=== PATIENT | male | born 1945 | race Caucasian/White ===

== ENCOUNTER → 2016-11-29 | Outpatient (REF) | payer MEDICARE, MEDICAID, OTHER ==
[~2016-11-29] MED LIST: ACET500C PO; ACTI300C PO; ADVI200C5 PO; ALLO100T PO; ALLO10TA PO; AMAR1TAB5 PO; AMBI10TA PO; ASPI325T PO; ATOR1TAB19 PO; ATOR40TA PO; B/P MED PO; BAYE325T12 PO; BENA25CA2 PO; BENA25TA4 PO; BENT10CA PO; CELE20TA PO; CELE40TA PO; CHEL50TA PO; COLA100C PO; COLA50CA3 PO; COLC1TAB5 PO; DEMA20TA6 PO; DESIOIN3 TOP; DIAZ5TAB PO; DICY1CAP8 PO; DOC-8.6T PO; DOCU10CA PO; DULC5TAB PO; FERR325T3 PO; FIBE625T4 PO; FLEEENE4 PR; FLOM5CAP PO; FURO1TAB15 PO; GABA600T PO; GLIM1TAB PO; GLIM2TAB PO; GLIM4TAB PO; GLUC10TA3 PO; GLUC1INJ2 IM; GLUC4CHW PO; GLUCOSE PO; HUMU70IN SC; HYDR-3713 PO; IMOD2CHW PO; INSUDET SC; ISOS1TAB12 PO; KETO2CR TOP; LASI40TA PO; LEVE1INJ5 SC; LIPI10TA PO; LIPI20TA PO; LISI-542 PO; LORT5TAB PO; M-VI27TA PO; MAGN400C2 PO; MAGN400T2 PO; MARI2.5C PO; MECL12.575 PO; MELA1TAB PO; META0.52 PO; METF500T PO; METO-207 PO; METO5TAB2 PO; MILKSUS PO; MULTCAP PO; MULTIVITAMIN PO; NEUR300C PO; NITR4TASL SL; NUPE1OIN2 TOP; NYAM10003 EX; NYST100024 TOP; NYST50SS SS; OMEP20TA PO; OXYC1TAB23 PO; PANT40TA2 PO; PERC5TAB6 PO; PERCOCET PO; PRED10TA PO; PRED20TA PO; PRED20TAB PO; PROA1AER IN; PROS5TAB PO; PROT1TAB2 PO; QUES4POW PO; REGL5TAB2 PO; REME15TA PO; SENO8.6T9 PO; SIME80TA PO; SIMV40TA2 PO; SITA50TAB PO; TAMS0.4C2 PO; TOPR50TA PO; TRAM50TA2 PO; TRAZ100T4 PO; TYLE1TAB5 PO; TYLE325T5 PO; ULTR50TA PO; VITA100066 PO; VITA200028 PO; VITAFUSION PO; VITMTA PO; ZEST1TAB5 PO; ZINC220T PO; ZOFR20TA PO; ZOFR20TA SL; ZYLO100T PO; Zinc PO; [UNRECOGNIZED DRUG - CODE] PO; antivert PO; mylicon PO
[2016-11-29 20:44] LABS: FOLATE 10.5 NG/ML
== END ==
LOC: M LABNEURO 16:58
PROVIDERS: ATTEND Psychiatry & Neurology Neurology
DX: Z13.29 Encounter for screening for other suspected endocrine disorder (principal); Z79.899 Other long term (current) drug therapy

== ENCOUNTER → 2016-12-06 | Outpatient (CLI) | payer MEDICARE, MEDICAID, OTHER ==
--- NOTE | 2016-12-06 16:49 | REP ---
CT HEAD WITHOUT CONTRAST: HISTORY: Altered mental status. COMPARISON: 07/17/2014 Areas of decreased attenuation are present in the basal ganglia and right thalamus. These represent old lacunar infarctions. Areas of decreased attenuation are present in the periventricular white matter. This represent small vessel ischemic disease. There is no intraparenchymal hemorrhage, mass or midline shift. The ventricular system and cortical sulci are dilated consistent with minimal volume loss. There is no extracerebral collection. The visualized sinuses are clear. IMPRESSION: 1. Old bilateral basal ganglia and right thalamic lacunar infarctions. 2. Small vessel ischemic disease. 3. Minimal volume loss. Signed by Mike Rivera MD 12/06/2016 04:52 P
== END ==
LOC: M RAD 15:51
PROVIDERS: ATTEND Psychiatry & Neurology Neurology
DX: R41.1 Anterograde amnesia (principal); R41.82 Altered mental status, unspecified

== ENCOUNTER 2017-01-18 02:55 | Observation (INO) | payer MEDICARE, MEDICAID, OTHER ==
[~2017-01-18] VITALS: Ht 172.7 cm; Wt 135.0 kg
[~2017-01-18 02:55] MED LIST changes: -COLA100C PO; +COLA100C3 PO
[2017-01-18] MEDS ORDERED: KETOROLAC 30 MG/ML VIAL (J1885) IM ONE (03:30)
[2017-01-18] MEDS ORDERED: traMADol 50 MG TAB PO ONE (05:30)
--- NOTE | 2017-01-18 05:30 | REPUSA ---
CLINICAL HISTORY: Pain. TECHNIQUE: Multiple axial CT images were obtained without IV contrast material. MPR coronal and sagit otf sequences are obtained. COMMENTS: There is no evidence of fracture or dislocation. There are no lytic or blastic lesions. No soft tissu e masses or fluid collections are present. Mild degenerative joint disease. IMPRESSION: Degenerative joint disease. No fracture. Thank you for your kind referral of this patient.
[2017-01-18] MEDS ORDERED: PRED5TA PO (06:55)
[2017-01-18] MEDS ORDERED: JANU25TA PO (06:55)
[2017-01-18] MEDS ORDERED: TORS20TA2 PO (06:55)
[2017-01-18] MEDS ORDERED: PRED10TA PO (06:55)
[2017-01-18] MEDS ORDERED: ACET50TAOT PO (06:55)
[2017-01-18 07:04] LABS: BASO % 0.1 % (0.0-1.0); EOS % 0.4 % (0.0-3.0); LARGE UNSTAINED CELL # 0.1 K/mm3 (0.0-0.4); LYMPH # 1.1 K/mm3 (1.5-4.5); LYMPH % 9.4 % (24.0-44.0); MEAN CORPUSCULAR HEMOGLOBIN 27.1 pg (27.0-33.0); MEAN CORPUSCULAR HGB CONC 30.5 g/dl (32.0-36.5); MONO # 0.5 K/mm3 (0.0-0.8); MONO % 5.1 % (0.0-5.0); NEUTROPHILS # 8.6 K/mm3 (1.8-7.7); PLATELET COUNT, AUTOMATED 134 k/mm3 (150-450); RED CELL DISTRIBUTION WIDTH 16.1 % (11.5-14.5); WHITE BLOOD COUNT 10.2 K/mm3 (4.0-10.0)
[2017-01-18 07:14] LABS: CALCIUM LEVEL 8.5 MG/DL (8.8-10.2); CREATININE FOR GFR 2.92 MG/DL (0.70-1.30); GLOMERULAR FILTRATION RATE 22.7 (>42); POTASSIUM SERUM 4.5 MEQ/L (3.5-5.1)
--- NOTE | 2017-01-18 07:45 | REP ---
Clinical: Right hip and lower extremity pain . Technique: Miller scale and color Doppler evaluation using linear high frequency transducer. Findings: Ultrasound examination of the right lower extremity deep venous structures from the common femoral vein to the popliteal vein demonstrates normal compressibility flow and wave patterns in response to respiration and augmentation. There is no evidence for deep venous thrombosis. Impression: No evidence for deep venous thrombosis. Signed by Ricky Caruso MD 01/18/2017 07:36 A
--- NOTE | 2017-01-18 08:18 | REP ---
Clinical: Pain. Technique: AP view of the pelvis with neutral and cross-table lateral views of the right hip. Findings: Age-related osteopenia and advanced osteoarthritic degenerative changes are appreciated bilaterally (right greater than left). No obvious acute fracture or dislocation. Impression: Advanced osteoarthritic degenerative changes. No obvious acute fracture or dislocation. Signed by Ricky Caruso MD 01/18/2017 08:09 A
[2017-01-18] MEDS ORDERED: ACETAMINOPHEN TAB 650MG DOSE (2X325MG) PO PRN (08:30)
[2017-01-18] MEDS ORDERED: NORCO, ANEXSIA 5/325MG TABLET (HYDROcodone/ACETAMINOPHEN) PO PRN (08:30)
[2017-01-18] MEDS ORDERED: traZODone 100 MG TAB PO PRN (08:45)
[2017-01-18 09:11] VITALS: BP 109/53
[2017-01-18] MEDS: PANTOPRAZOLE 40MG TAB (PROTONIX) PO SCH (09:32)
[2017-01-18] MEDS: DOCUSATE SODIUM 100 MG CAP PO SCH ×2 (09:33→21:40)
[2017-01-18] MEDS: ASPIRIN 325 MG TAB PO SCH (09:33)
[2017-01-18] MEDS: predniSONE 20 MG TAB PO SCH (09:33)
[2017-01-18] MEDS: LEVEMIR (INSULIN DETEMIR) 1 UNITS/0.01ML SC SCH ×2 (09:34→22:31)
[2017-01-18] MEDS: SITagliptin 50 MG TAB (JANUVIA) PO SCH (09:34)
[2017-01-18] MEDS: MAGNESIUM OXIDE 400 MG TAB (MAG-OX) PO SCH ×2 (09:35→21:48)
[2017-01-18] MEDS: ALLOPURINOL 100 MG TAB PO SCH (10:06)
[2017-01-18] MEDS: VITAMIN D 1,000 INTERNATIONAL UNITS TABLET PO SCH (10:06)
[2017-01-18] MEDS: glipiZIDE 10 MG TAB PO SCH ×2 (10:07→17:10)
[2017-01-18] MEDS: ENOXAPARIN 30 MG/0.3 ML SYR (J1650) SC SCH (14:49)
[2017-01-18 15:20] VITALS: BP 144/62
[2017-01-18] MEDS: TORSEMIDE 20 MG TAB PO SCH (17:10)
[2017-01-18] MEDS ORDERED: GLUCOSE 4 GM CHEW TABLET PO PRN (17:30)
[2017-01-18] MEDS ORDERED: GLUCAGON FOR INJ 1 MG VIAL (J1610) SC PRN (17:30)
[2017-01-18] MEDS ORDERED: DEXTROSE 50% 50 ML SYRINGE IV PRN (17:30)
[2017-01-18] MEDS: HumaLOG INSULIN (NovoLOG) PER UNIT SC SCH (17:40)
[2017-01-18] MEDS ORDERED: CitaloPRAM (CeleXA) 20 MG TAB PO SCH (21:00)
[2017-01-18] MEDS ORDERED: ATORVASTATIN 20 MG TAB PO SCH (21:00)
[2017-01-18] MEDS ORDERED: HumaLOG INSULIN (NovoLOG) PER UNIT SC SCH (21:00)
[2017-01-18 22:00] VITALS: BP 130/63
[2017-01-18] MEDS ORDERED: HumaLOG INSULIN (NovoLOG) PER UNIT SC ONE (22:30)
[2017-01-19 06:00] VITALS: BP 167/75
[2017-01-19 07:05] LABS: MEAN CORPUSCULAR HEMOGLOBIN 26.9 pg (27.0-33.0); MEAN CORPUSCULAR HGB CONC 30.3 g/dl (32.0-36.5); MEAN CORPUSCULAR VOLUME 88.9 fl (80.0-96.0); RED CELL DISTRIBUTION WIDTH 16.1 % (11.5-14.5); WHITE BLOOD COUNT 9.8 K/mm3 (4.0-10.0)
[2017-01-19 07:20] LABS: ALBUMIN 2.5 GM/DL (3.2-5.2); ALBUMIN/GLOBULIN RATIO 0.61 (1.00-1.93); BILIRUBIN,TOTAL 0.4 MG/DL (0.2-1.0); CALCIUM LEVEL 8.6 MG/DL (8.8-10.2); CREATININE FOR GFR 2.78 MG/DL (0.70-1.30); POTASSIUM SERUM 4.7 MEQ/L (3.5-5.1); TOTAL PROTEIN 6.6 GM/DL (6.4-8.2)
[2017-01-19] MEDS: TORSEMIDE 20 MG TAB PO SCH (08:50)
[2017-01-19] MEDS: predniSONE 20 MG TAB PO SCH (08:50)
[2017-01-19] MEDS: MAGNESIUM OXIDE 400 MG TAB (MAG-OX) PO SCH (08:51)
[2017-01-19] MEDS: PANTOPRAZOLE 40MG TAB (PROTONIX) PO SCH (08:51)
[2017-01-19] MEDS: VITAMIN D 1,000 INTERNATIONAL UNITS TABLET PO SCH (08:51)
[2017-01-19] MEDS: ENOXAPARIN 30 MG/0.3 ML SYR (J1650) SC SCH (08:52)
[2017-01-19] MEDS: ALLOPURINOL 100 MG TAB PO SCH (08:52)
[2017-01-19] MEDS: glipiZIDE 10 MG TAB PO SCH (08:52)
[2017-01-19] MEDS: SITagliptin 50 MG TAB (JANUVIA) PO SCH (08:52)
[2017-01-19] MEDS: ASPIRIN 325 MG TAB PO SCH (08:52)
[2017-01-19] MEDS: HumaLOG INSULIN (NovoLOG) PER UNIT SC SCH ×2 (08:53→12:44)
[2017-01-19] MEDS: DOCUSATE SODIUM 100 MG CAP PO SCH (08:53)
[2017-01-19] MEDS: LEVEMIR (INSULIN DETEMIR) 1 UNITS/0.01ML SC SCH (08:53)
[2017-01-19] MEDS ORDERED: PRED10TA PO (11:31)
--- NOTE | 2017-01-19 11:35 | IPNPDOC ---
Subjective Date Seen The patient was seen on 01/19/17. Subjective Chief Complaint/HPI The patient is a 71-year-old male admitted with a reason for visit of Acute-On- Chronic Renal Failure. Events since last encounter Hip pain significantly improved. He walked in the hallway without difficulty. He feels ready to go home Constitutional: Denies: Chills, Fever Pulmonary: Denies: Cough, Dyspnea Cardiovascular: Denies: Chest Pain, Orthopnea, Palpitations Gastrointestinal: Denies: Abdominal Pain, Constipation, Diarrhea, Nausea, Vomiting Genitourinary: Denies: Dysuria Objective Physical Examination General Exam: Positive: Alert, No Acute Distress Chest Exam: Positive: Clear to auscultation, Normal air movement Heart Exam: Positive: Rate Normal, Regular Rhythm Abdomen Exam: Positive: Normal bowel sounds, Soft, Negative: Tenderness Extremity Exam: Negative: Edema Assessment /Plan Problems (1) Arthralgia of hip, right Status: Chronic Response to Treatment: Improving (2) Inability to ambulate due to right hip Status: Acute Response to Treatment: Improving Problem Text: Right hip pain was likely;y flare up of arthritis vs bursitis He has had significant improvement in his pain with increase ion his prednisone to 40 mg daily and use of Hydrocodone x 1 dose last night. I will d/c him home on Prednisone 20 mg daily until f/u with PCP, then could go back on his 10 mg daily dose He has Hydrocodone to use if needed, but he tries to avoid using this Plan/VTE VTE Prophylaxis Ordered?: Yes VS, I&O, 24H, Fishbone Vital Signs/I&O Vital Signs Date Time Temp Pulse Resp B/P Pulse Ox O2 Delivery O2 Flow Rate FiO2 01/19/17 06:00 97.9 78 20 167/75 96 01/18/17 19:20 Room Air I&O- Last 24 Hours up to 6 AM 01/19/17 06:00 Intake Total 1380 ml Output Total 1050 ml Balance 330 ml Laboratory Data 24H LABS Laboratory Tests 2 01/18/17 17:11: Bedside Glucose (Misc Panel) 409H 01/18/17 21:00: Bedside Glucose Confirm (Misc) 500*H 01/18/17 23:30: Bedside Glucose (Misc Panel) 379H 01/18/17 23:31: Urine Amorphous Sediment , Urine Appearance CLEAR, Urine Color STRAW, Urine pH 6.0, Urine Specific [place] 1.008, Urine Protein NEGATIVE, Urine Glucose (UA) 3+ H, Urine Ketones NEGATIVE, Urine Urobilinogen 0.2, Urine Bilirubin NEGATIVE, Urine Leukocyte Esterase NEGATIVE, Urine Bacteria (Auto) NEGATIVE, Urine Blood NEGATIVE, Urine Calcium Carbonate Cryst(Auto) , Urine Calcium Oxalate Cryst ( Auto) , Urine Calcium Phosphate Cintia (Auto) , Urine Cellular Casts , Urine Cystine Crystals , Urine Granular Casts (Auto) , Urine Hyaline Casts (Auto) 0, Urine Leucine Crystals , Urine Mucus (Auto) , Urine Nitrite NEGATIVE, Urine Oval Fat Bodies (Auto) , Urine RBC (Auto) 2, Urine Renal Epithelial Cells , Urine Sperm (Auto) , Urine Squamous Epithelial Cells 0, Urine Transitional Epithelial Cells , Urine Trichomonas (Auto) , Urine Triple Phosphate Cryst (Auto ) , Urine Tyrosine Crystals , Urine Uric Acid Crystals (Auto) , Urine WBC (Auto ) 0, Urine Waxy Casts (Auto) , Urine Yeast-Like Cells (Auto) 01/19/17 05:38: Bedside Glucose (Misc Panel) 187H 01/19/17 06:21: Blood Urea Nitrogen 52H, Creatinine 2.78H, Sodium Level 142, Potassium Level 4.7 , Chloride Level 99, Carbon Dioxide Level 35H, Calcium Level 8.6L, Aspartate Amino Transf (AST/SGOT) 72H, Alanine Aminotransferase (ALT/SGPT) 42, Alkaline Phosphatase 129H, Total Bilirubin 0.4, Total Protein 6.6, Albumin 2.5L, Albumin/ Globulin Ratio 0.61L, Anion Gap 8, Glomerular Filtration Rate 24.0L CBC/BMP Laboratory Tests 01/19/17 06:21 Calcium Level 8.6 L, Aspartate Amino Transf (AST/SGOT) 72 H, Alanine Aminotransferase (ALT/SGPT) 42, Alkaline Phosphatase 129 H, Total Bilirubin 0.4 , Total Protein 6.6, Albumin 2.5 L, Red Blood Count 3.55 L, Mean Corpuscular Volume 88.9, Mean Corpuscular Hemoglobin 26.9 L, Mean Corpuscular Hemoglobin Concent 30.3 L, Red Cell Distribution Width 16.1 H Microbiology Microbiology 01/18/17 Blood Culture, Received Pending 01/18/17 Urine Culture, Received Pending RD FLORES PA-C Jan 19, 2017 11:35
[2017-01-20] MEDS ORDERED: PREVNAR 13 VACCINE SYRINGE (CPT CODE:90670) IM ONE (09:00)
--- NOTE | 2017-01-28 09:07 | ECWPN ---
PATIENT NAME: MOLLY OVALLE V : 1945 GENDER: MALE VISIT DATE: 01/18/2017 DISCHARGE DATE: 01/18/17 0000 VISIT LOCKED DATE TIME: PHYSICIAN: RD FLORES PHYSICIAN PAGER NO: TEXT TO [phone] RESOURCE: RD FLORES REASON FOR APPOINTMENT 1. ADMISSION H & P HISTORY OF PRESENT ILLNESS GENERAL: HE WAS OUT WITH HIS YESTERDAY. THEY DROVE TO THE MALL. HE GOT AROUND WELL WITH HIS SCOOTER AND SAT IN A CHAIR WAITING FOR HE TO SHOP. HE WAS ABLE TO GET OUT OF THE CAR WHEN HE GOT HOME, BUT DEVELOPED SEVERE PAIN IN HIS RIGHT HIP AFTER A FEW STEP AND COULD NOT BARE WEIGHT WELL DUE TO THE PAIN. THE PAIN IS LOCATED IN THE LATERAL ASPECT OF THE HIP. NO RADIATION. NO NUMBNESS, TINGLING OR WEAKNESS OF RIGHT LEG. HE WENT TO BED AND WAS UNABLE TO GET UP TO USE THE BR DUE TO PAIN SO HIS BROUGHT HIM IN TOT HE ER. HE WAS GIVEN TRAMADOL WITHOUT RELIEF. HAVING SEVERE PAIN WITH MINIMAL MOVEMENT OF THE HIP. NOW DEVELOPING SOME BACK PAIN DUE TO LAYING IN THE STRETCHER. USUALLY SLEEPS IN A RECLINER. CURRENT MEDICATIONS TAKING JANUVIA 25 MG TABLET 1 TABLET ORALLY DAILY TAKING ACETAMINOPHEN 500 MG TABLET 1 TAB(S) ORALLY EVERY 4 HOURS NEED TAKING LIPITOR 40 MG TABLET 1 TABLET ORALLY AT BEDTIME TAKING MYCOSTATIN 835837 UNIT/GM POWDER TO AREAS IN ABDOMINAL FOLDS EXTERNALLY TWICE DAILY NEEDED TAKING SAADIA CONTOUR TEST GLUCOMETER DX : E11.65 DIRECTED - THREE TIMES DAILY TAKING ASPIRIN 325 MG TABLET 1 TABLET ORALLY ONCE A DAY TAKING ALLOPURINOL 100 MG TABLET 2 TABLETS ORALLY ONCE A DAY TAKING SAADIA CONTOUR TEST 1 STRIP DIRECTED FOR INSULIN TREATMENT DX E11.9 THREE TIMES A DAY TAKING NITROSTAT 0.4 MG TABLET SUBLINGUAL PRN CHEST PAIN SUBLINGUAL Q 5 MINUTES FOR A MAXIMUM OF 3 TABS TAKING SHOWER CHAIR WITHOUT WHEELS _ DIRECTED DX: I63.9 DAILY USE TAKING PEN NEEDLES 1/2" 29G X 12MM MISCELLANEOUS DIRECTED SUBCUTANEOUSLY BID TAKING PANTOPRAZOLE SODIUM 40 MG TABLET DELAYED RELEASE 1 TAB ORALLY ONCE A DAY TAKING VITAMIN D 1000 UNIT TABLET 1 TABLET ORALLY ONCE A DAY TAKING KETOCONAZOLE 2 % CREAM TO FEET EXTERNALLY TWICE A DAY TAKING TRIAMCINOLONE ACETONIDE 0.1 % CREAM 1 APPLICATION TO AFFECTED AREA EXTERNALLY TWICE A DAY TAKING TORSEMIDE 20 MG TABLET DIRECTED ORALLY 3 TABS IN AM, 3 TAB IN PM TAKING CELEXA 40 MG TABLET 1 TABLET ORALLY ONCE A DAY TAKING MAGNESIUM OXIDE 400 MG TABLET 1.5 TABLET ORALLY TWICE DAILY TAKING TRAZODONE 100 100MG TABLET 1 CAP(S) ORAL AT BEDTIME TAKING GLUCOTROL 10 MG TABLET 1 TABLET ORALLY TWICE DAILY TAKING PREDNISONE 10 MG TABLET 1 TABS ORALLY ONCE A DAY TAKING LEVEMIR FLEXTOUCH 100 UNIT/ML SOLUTION PEN-INJECTOR DIRECTED SUBCUTANEOUS 80 UNITS IN AM, AND 70 UNITS IN PM TAKING SENSIPAR 30 MG TABLET 1 TABLET AFTER A MEAL WITH FOOD ORALLY ONCE A DAY PAST MEDICAL HISTORY DIABETES MELLITUS HYPERLIPIDEMIA H/O CVA 12/2013 RIGHT SIDED: LEFT SIDE SYMPTOMS NO RESIDUAL MORBID OBESITY PMR GOUT PSORIASIS INGROWING NAIL MULTIPLE SKIN CANCER H/O COLON CANCER WITH OSTOMY (NOW REVERSED) COLONOSCOPY 05/29/14-POORLY DIFFERENTIATED SIGMOID COLON ADENOCARCINOMA, MULTIPLE ADENOMATOUS POLYPS IN ASCENDING COLON AND CECUM CHF-FOLLOWS WITH [facility] ALLERGIES MORPHINE SULFATE: NAUSEA, CONFUSION: ALLERGY SURGICAL HISTORY APPENDECTOMY 1947 TONSILLECTOMY 1949 [place] IN [place] ( SEVERAL SURGERY) [id number] COLONOSCOPY 05/29/2014 FAMILY HISTORY FATHER: 69 YRS, HTN, PR, CHF MOTHER: 90 YRS SIBLINGS: SISTER HAD OVARIAN CANCER PATERNAL GRAND MOTHER: 85 YRS, CVA SOCIAL HISTORY GENERAL: TOBACCO USE ARE YOU A:FORMER SMOKER HOW LONG HAS IT BEEN SINCE YOU LAST SMOKED?1-5 YEARS BMI CARE GOAL FOLLOW-UP ABOVE NORMAL BMI FOLLOW-UPGIVING ENCOURAGEMENT TO EXERCISE, LIFESTYLE EDUCATION REGARDING DIET ALCOHOL SCREENING POINTS: 0, INTERPRETATION: NEGATIVE. RECREATIONAL DRUG USE DENIES. CAFFEINE NONE. HIV / HEP-C SCREENING HIV TEST OFFERED TO PATIENT:NO HEP-C TEST OFFERED TO PATIENT:NO OCCUPATION: RETIRED. DIET: HE TRIES TO EAT A CARBOHYDRATE CONTROLLED DIET, BUT OFTEN CHEATS. EXERCISE: UNABLE. LEARNING BARRIERS / SPECIAL NEEDS CHANGE FROM LAST VISIT?NO BARRIERS TO LEARNING?NO HEARING IMPAIRED?NO VISION IMPAIRED?YES :CORRECTIVE LENSES COGNITIVELY IMPAIRED?NO READINESS TO LEARN?YES LEARNING PREFERENCES?NO LEARNING CAPABILITIES PRESENT?YES EMOTIONAL BARRIERS?NO SPECIAL DEVICES?YES :WALKER MISCELLANEOUS: SHE IDENTIFIES HIS , SARINA DEWITT ([phone]), HER ALTERNATE DECISION-MAKER SHOULD SHE BE UNABLE TO MAKE HER OWN MEDICAL DECISIONS. 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 ENDOCRINOLOGY: NO HEAT OR COLD INTOLLERENCE, POLYDYPSIA, OR POLYURIA . GASTROENTEROLOGY: NO HEARTBURN, N/V, ABD PAIN, MELENA, HEMATOCHEZIA, DIARRHEA OR CONSTIPATION . GENERAL: NO NIGHT SWEATS, FEVER, CHILLS, UNEXPLAINED WEIGHT LOSS OR WEIGHT GAIN. . GI/ NO INCONTINENCE, DYSURIA, FREQUENCY OR URGENCY . HEENT NO HEADACHE, VISION CHANGES, HEARING CHANGES, SORE THROAT OR RHINORRHEA . NEUROLOGY: NO HEADACHE, SIEZURES, NUMBNESS OR TINGLING OR WAEKNESS OF EXREMETIES . PSYCHOLOGY: NO DEPRESSION, ANXIETY . PULMONOLOGY: NO COUGH OR HEMOPTYSIS . VITAL SIGNS WT 304 LBS, HT 69 IN, BMI 44.89 INDEX, BP 132/96 MM HG, HR 70 /MIN, RR 20 /MIN, TEMP 100.6 F, OXYGEN SAT % 96%. EXAMINATION GENERAL EXAMINATION: GENERAL APPEARANCE:NO ACUTE DISTRESS, WELL NOURISHED AND HYDRATED. PSYCHAPPROPRIATE MOOD AND AFFECT . FACE:UNREMARKABLE. ORAL CAVITY:MOIST MUCOUS MEMBRANES. LUNGS:CLEAR TO AUSCULTATION BILATERALLY, NO WHEEZES, RHONCHI, RALES. HEART:NO MURMURS, REGULAR RATE AND RHYTHM. MUSCULOSKELETAL:UNABLE TO MOVE RIGHTHIP DUE TO PAIN. NO TENDERNESS IN LUMBA SPINE OR RIGHT PERISPINAL MUSCLES OR SCIATIC NOTHC. TENDERNESS OVER RIGHT GREATER TROCHANTER. EXTREMITIES:NO CLUBBING, + 2 EDEMA BLE. SKIN:NORMAL, NO RASH. ASSESSMENTS INTRACTABLE PAIN - R52 (PRIMARY) INABILITY TO AMBULATE DUE TO HIP - R26.2 TROCHANTERIC BURSITIS OF RIGHT HIP - M70.61 LOW GRADE FEVER - R50.9 ACUTE RENAL FAILURE, UNSPECIFIED ACUTE RENAL FAILURE TYPE - N17.9 CHRONIC KIDNEY DISEASE, STAGE 4 (SEVERE) - N18.4 TYPE 2 DIABETES MELLITUS WITH DIABETIC CHRONIC KIDNEY DISEASE - E11.22 CHRONIC DIASTOLIC CONGESTIVE HEART FAILURE - I50.32 MORBID OBESITY - E66.01 TREATMENT INTRACTABLE PAIN CLINICAL NOTES: ADMIT FOR OBSERVATION FOR PAIN CONTROL AND PT IN EFFORT TO BE ABLE TO AMBULATE SAFELY. TROCHANTERIC BURSITIS OF RIGHT HIP CLINICAL NOTES: APPLY LIDODERM PATCHES. INCREASE PREDNISONE AND GIVE NORCO PRN BUT TRY TO AVOID EXCESSIVE USE. CONSIDER ORTHO CONSULT FOR INJECTIN. GET PT TO ADDRESS AMBULATION. LOW GRADE FEVER CLINICAL NOTES: CHECK URINALYSIS DUE TO TX WITH JARDIANCE - INCREASED RISK FOR UTI. ACUTE RENAL FAILURE, UNSPECIFIED ACUTE RENAL FAILURE TYPE CLINICAL NOTES: CREATININE UP FROM BASELINE 2.36 IN NEPHROLOGY VISIT RECENTLY - INCREASE IS LIKELY DUE TO INCREASED DOSE OF TORSEMIDE HOWEVER, HE STILL HAS EDEMA, THOUGH THIS HAS IMPROED WITHT HE INCREASED DOSE. TYPE 2 DIABETES MELLITUS WITH DIABETIC CHRONIC KIDNEY DISEASE CONTINUE JANUVIA TABLET, 25 MG, 1 TABLET, ORALLY, DAILY CONTINUE GLUCOTROL TABLET, 10 MG, 1 TABLET, ORALLY, TWICE DAILY CONTINUE LEVEMIR FLEXTOUCH SOLUTION PEN-INJECTOR, 100 UNIT/ML, DIRECTED, SUBCUTANEOUS, 80 UNITS IN AM, AND 70 UNITS IN PM CHRONIC DIASTOLIC CONGESTIVE HEART FAILURE CONTINUE TORSEMIDE TABLET, 20 MG, DIRECTED, ORALLY, 3 TABS IN AM, 3 TAB IN PM CLINICAL NOTES: TORSEMIDE RECENTLY INCREASED BY DR. JAUREGUI FOR INCREASED GARCIA AND, INCREASED LE EDEMA AND WEIGHT GAIN. HE IS LESS SOB AND HIS EDEMA HAS IMPROVED WITH HIGHER DOSE BUT CREATININE HAS RISEN. CONSIDER NEPHROLOGY CONSULT. MORBID OBESITY CLINICAL NOTES: MAKES AMBULATION ISSUES MORE CHALLENGING. DISPOSITION & COMMUNICATION ELECTRONICALLY SIGNED BY PRIMITIVO HUFFMAN ON 01/23/2017 AT 09:56 AM EDT DISCLAIMER : THIS IS A VISIT SUMMARY EXTRACTED FROM THE [employer] CHART. IT IS NOT A COPY OF THE [employer] PROGRESS NOTE. MTDD
== END 2017-01-19 14:50 | disposition home or self-care (01) ==
LOC: EDBD 02:55 → M ED 03:49 → M ED INP 08:26 → M MSPAV 15:06
PROVIDERS: ADMIT Family Medicine; ATTEND Family Medicine
DX: M25.551 Pain in right hip (principal); R26.2 Difficulty in walking, not elsewhere classified; M70.61 Trochanteric bursitis, right hip; M79.604 Pain in right leg; R50.9 Fever, unspecified; N17.9 Acute kidney failure, unspecified; N18.4 Chronic kidney disease, stage 4 (severe); E11.22 Type 2 diabetes mellitus with diabetic chronic kidney disease; I50.32 Chronic diastolic (congestive) heart failure; E66.01 Morbid (severe) obesity due to excess calories; E11.65 Type 2 diabetes mellitus with hyperglycemia; E78.4 Other hyperlipidemia; Z86.73 Personal history of transient ischemic attack (TIA), and cerebral infarction without residual deficits; M35.3 Polymyalgia rheumatica; M10.9 Gout, unspecified; Z79.82 Long term (current) use of aspirin; Z79.899 Other long term (current) drug therapy; L40.8 Other psoriasis; Z85.828 Personal history of other malignant neoplasm of skin; Z85.038 Personal history of other malignant neoplasm of large intestine; Z87.891 Personal history of nicotine dependence; I63.9 Cerebral infarction, unspecified; Z79.4 Long term (current) use of insulin
CPT/HCPCS: 36415; 73502; 73700; 80048; 80053; 81001; 82947; 85025; 85027; 87040; 87086; 90670; 93971; 96372; 97161; 99284; G0009; G0378; G8978; G8979; G8980; J1650; J1885

== ENCOUNTER → 2017-02-15 | Outpatient (CLI) | payer MEDICARE, MEDICAID, OTHER ==
[~2017-02-15] MED LIST changes: +ACET50TAOT PO; +JANU25TA PO; +PRED5TA PO; +TORS20TA2 PO
[2017-02-15 16:57] LABS: CALCIUM LEVEL 6.9 MG/DL (8.8-10.2); CREATININE FOR GFR 2.65 MG/DL (0.70-1.30); GLOMERULAR FILTRATION RATE 25.4 (>42); POTASSIUM SERUM 4.6 MEQ/L (3.5-5.1)
== END ==
LOC: M LAB 16:07
PROVIDERS: ATTEND Internal Medicine Cardiovascular Disease
DX: I50.32 Chronic diastolic (congestive) heart failure (principal)

== ENCOUNTER → 2017-02-21 | Outpatient (REF) | payer MEDICARE, MEDICAID ==
[2017-02-21 13:48] LABS: ALBUMIN 2.9 GM/DL (3.2-5.2); ALBUMIN/GLOBULIN RATIO 0.83 (1.00-1.93); BILIRUBIN,TOTAL 0.6 MG/DL (0.2-1.0); CALCIUM LEVEL 7.4 MG/DL (8.8-10.2); CREATININE FOR GFR 2.79 MG/DL (0.70-1.30); GLOMERULAR FILTRATION RATE 23.9 (>42); POTASSIUM SERUM 4.4 MEQ/L (3.5-5.1); TOTAL PROTEIN 6.4 GM/DL (6.4-8.2)
== END ==
LOC: M SFHCPLAZ 11:19
PROVIDERS: ATTEND Nurse Practitioner Family
DX: E11.22 Type 2 diabetes mellitus with diabetic chronic kidney disease (principal)
CPT/HCPCS: 36415; 80053; 83036; G0463

== ENCOUNTER → 2017-04-15 | Outpatient (REF) | payer MEDICARE, MEDICAID ==
[~2017-04-15] MED LIST changes: -ATOR40TA PO; +ATOR40TA75 PO; +CALC1CAP31 PO; +CINA30TA PO; +CITA20TA4 PO; -COLA100C3 PO; +COLA100C5 PO; +COLC1TAB14 PO; -COLC1TAB5 PO; -DOC-8.6T PO; +DOC-8.6T3 PO; +DOCU100C16 PO; -FURO1TAB15 PO; +FURO80TA2 PO; +GABA-279 PO; +HYDR-2808 PO; +LIDO1PAD TOP; -METF500T PO; +METF500T13 PO; -METO-207 PO; +METO1TAB7 PO; -NYST100024 TOP; +NYST1POW9 TOP; +PERC5TAB12 PO; -PERC5TAB6 PO; +PRED10TA2 PO; -PROA1AER IN; +PROAAER10 IN; +TOUJ1.2I SQ; +TRAZ-136 PO; -TRAZ100T4 PO; +TYLE500T78 PO; -ULTR50TA PO; +ULTR50TA8 PO; +VALA1TAB2 PO; +VITA50TA49 PO; +ZYLO300T4 PO
== END ==
LOC: M SFHCPLAZ 10:40
PROVIDERS: ATTEND Family Medicine
DX: L57.0 Actinic keratosis (principal); L98.8 Other specified disorders of the skin and subcutaneous tissue; D22.39 Melanocytic nevi of other parts of face; L85.8 Other specified epidermal thickening; C44.329 Squamous cell carcinoma of skin of other parts of face
CPT/HCPCS: 11100; 11101; 11642; 88305; G0463

== ENCOUNTER 2017-06-24 12:47 | Outpatient (RCR) | payer MEDICARE, MEDICAID ==
[~2017-06-24 12:47] MED LIST changes: -CALC1CAP31 PO; -CINA30TA PO; -CITA20TA4 PO; -DOCU100C16 PO; -GABA-279 PO; -HYDR-2808 PO; -LIDO1PAD TOP; -TOUJ1.2I SQ; -TYLE500T78 PO; -VALA1TAB2 PO; -VITA50TA49 PO; -ZYLO300T4 PO
== END 2017-06-30 ==
LOC: M CR 12:47
PROVIDERS: ATTEND Family Medicine
DX: R06.00 Dyspnea, unspecified (principal); Z88.5 Allergy status to narcotic agent

== ENCOUNTER 2017-07-12 07:36 | Inpatient (IN) | payer MEDICARE, MEDICAID ==
[~2017-07-12] VITALS: Ht 172.7 cm; Wt 142.5 kg
[2017-07-12] MEDS ORDERED: CINA30TA PO (08:07)
[2017-07-12] MEDS ORDERED: TOUJ1.2I SQ (08:07)
[2017-07-12] MEDS ORDERED: PANT40TA2 PO (08:07)
[2017-07-12] MEDS ORDERED: CALC1CAP31 PO (08:07)
[2017-07-12] MEDS ORDERED: PRED20TA PO (08:07)
[2017-07-12] MEDS ORDERED: TORS20TA2 PO (08:07)
[2017-07-12] MEDS ORDERED: FERR325T3 PO (08:07)
[2017-07-12] MEDS ORDERED: VITA50TA49 PO (08:07)
[2017-07-12] MEDS ORDERED: TYLE325T5 PO (08:07)
[2017-07-12] MEDS ORDERED: fentaNYL 100 MCG/2 ML INJECTION (J3010) IV ONE ×3 (08:30→10:15)
[2017-07-12 08:41] LABS: BASO % 0.2 % (0.0-1.0); EOS # 0.1 K/mm3 (0.0-0.50); EOS % 0.8 % (0.0-3.0); LARGE UNSTAINED CELL # 0.2 K/mm3 (0.0-0.4); LYMPH # 2.5 K/mm3 (1.5-4.5); LYMPH % 16.2 % (24.0-44.0); MEAN CORPUSCULAR HGB CONC 30.5 g/dl (32.0-36.5); MONO # 0.7 K/mm3 (0.0-0.8); MONO % 4.7 % (0.0-5.0); NEUTROPHILS # 11.5 K/mm3 (1.8-7.7); NEUTROPHILS % 77.1 % (36.0-66.0); PLATELET COUNT, AUTOMATED 178 k/mm3 (150-450); RED CELL DISTRIBUTION WIDTH 17.3 % (11.5-14.5); WHITE BLOOD COUNT 14.8 K/mm3 (4.0-10.0)
[2017-07-12 08:51] LABS: CALCIUM LEVEL 8.3 MG/DL (8.8-10.2); CREATININE FOR GFR 2.44 MG/DL (0.70-1.30); GLOMERULAR FILTRATION RATE 27.9 (>42)
[2017-07-12] MEDS: ASPIRIN 325 MG TAB PO SCH (09:00)
[2017-07-12] MEDS: CALCITRIOL 0.25 MCG CAP (S0169) PO SCH (09:00)
[2017-07-12] MEDS: ALLOPURINOL 300 MG TAB PO SCH (09:00)
[2017-07-12] MEDS: ENOXAPARIN 30 MG/0.3 ML SYR (J1650) SC SCH (09:00)
[2017-07-12] MEDS ORDERED: PANTOPRAZOLE 40MG TAB (PROTONIX) PO SCH (09:00)
[2017-07-12] MEDS: predniSONE 20 MG TAB PO SCH (09:00)
--- NOTE | 2017-07-12 11:14 | REP ---
MRI LUMBAR SPINE WITHOUT CONTRAST (LIMITED): 07/12/2017 CLINICAL HISTORY: Severe low back pain. Right radicular symptoms, L3 distribution. COMPARISON: MRI 03/08/2016. TECHNIQUE: A sagittal T2 sequence was performed. Technologist notes indicate the patient had been medicated twice but was unable to tolerate this. It was therefore terminated. FINDINGS: Sagittal images show diffuse disc space narrowings sparing only the L4 level. All levels show some loss of disc water signal. Discogenic endplate changes are seen at the L3-4 level progressive from last year's MRI. There is no compression deformity. Conus appears to terminate behind L1 lower aspect. Some discogenic endplate changes are also seen at the L5-S1 level unchanged. There are disc bulges at T12-L1 and L1-2 but small somewhat larger at L3-4 small at L4-5 and a disc protrusion at L5-S1 centrally. All of this appears grossly unchanged. Some facet and ligamentum hypertrophy are present at the L3-4 contributing to spinal stenosis. No other findings can be made with just a sagittal image set. The foramina show encroachment at L5-S1 bilaterally and minimally at L3-4 on the right, slightly more on the left. The other foramina are adequate. IMPRESSION: 1. Limited evaluation with spondylosis/degenerative disc and facet arthritic changes as described. Spinal stenosis suggested L3-4 in the central canal and foraminal encroachment at several levels. Some progression of discogenic endplate changes as described. No acute compression deformity or destructive lesion. Signed by Javier Hinojosa MD 07/12/2017 04:13 P
[2017-07-12] MEDS ORDERED: CITA20TA4 PO (12:26)
[2017-07-12] MEDS: PERCOCET 5MG/325MG TAB PO PRN ×2 (15:29→20:24)
[2017-07-12] MEDS ORDERED: ONDANSETRON 4MG/2ML VIAL (J2405) IV PRN (15:30)
[2017-07-12] MEDS ORDERED: DEXTROSE 50% 50 ML SYRINGE IV PRN (15:30)
[2017-07-12] MEDS ORDERED: PERCOCET 5MG/325MG TAB PO PRN (15:30)
[2017-07-12] MEDS ORDERED: GLUCAGON FOR INJ 1 MG VIAL (J1610) SC PRN (15:30)
[2017-07-12] MEDS ORDERED: GLUCOSE 4 GM CHEW TABLET PO PRN (15:30)
[2017-07-12] MEDS ORDERED: NITROGLYCERIN 0.4 MG SUBL TABLET SL PRN (15:30)
[2017-07-12 16:50] VITALS: BP 150/68
--- NOTE | 2017-07-12 16:56 | REP ---
Clinical: Leukocytosis. Technique: PA and lateral. Comparison: 05/25/2016. Findings: Cardiomegaly is appreciated with bibasilar opacities suggesting atelectasis and effusions as well as indistinct central pulmonary vasculature and mild cephalization. Findings suggest CHF and pulmonary edema. Underlying pneumonia cannot be excluded. No pneumothorax. Skeletal structures intact. Impression: Findings described above suggest CHF/pulmonary edema. Differential diagnosis includes pneumonia. Signed by Ricky Caruso MD 07/12/2017 04:48 P
--- NOTE | 2017-07-12 17:02 | REP ---
Clinical: Pain. Technique: Frontal view of the pelvis with AP and cross-table lateral views of the right hip. Findings: Early advanced diffuse degenerative changes are appreciated throughout the pelvis and hips. No definite acute fracture is appreciated. Impression: Advanced degenerative changes throughout the pelvis and hips. No obvious acute fracture. Signed by Ricky Caruso MD 07/12/2017 11:49 A
--- NOTE | 2017-07-12 17:06 | REP ---
Right femur: Three views: History: Question fracture. Findings: AP and lateral views of the femur are presented. There is moderate to advanced osteoarthritis at the hip. No femur fracture is seen. Vascular calcification is noted. Impression: No femur fracture noted. Signed by Favio Rivas MD 07/12/2017 05:25 P
--- NOTE | 2017-07-12 17:17 | REP ---
Right knee series: Four views: History: Question fracture. Findings: Four views right knee demonstrate diffuse osteopenia and vascular calcification. No fracture or subluxation is seen. Impression: Diffuse osteopenia and vascular calcification. No fracture noted. Signed by Favio Rivas MD 07/12/2017 05:25 P
[2017-07-12] MEDS: HumaLOG INSULIN (NovoLOG) PER UNIT SC SCH ×2 (17:26→21:00)
[2017-07-12] MEDS: glipiZIDE 10 MG TAB PO SCH (17:27)
[2017-07-12] MEDS: TORSEMIDE 20 MG TAB PO SCH ×2 (17:27→20:25)
[2017-07-12] MEDS: ATORVASTATIN 20 MG TAB PO SCH (20:24)
[2017-07-12] MEDS: CitaloPRAM (CeleXA) 20 MG TAB PO SCH (20:25)
[2017-07-12] MEDS: MAGNESIUM OXIDE 400 MG TAB (MAG-OX) PO SCH (20:25)
[2017-07-12] MEDS: PANTOPRAZOLE 40MG TAB (PROTONIX) PO SCH (20:25)
[2017-07-12] MEDS: FERROUS SULFATE 325MG TAB PO SCH (20:26)
[2017-07-12] MEDS: traZODone 100 MG TAB PO SCH (20:26)
[2017-07-12] MEDS: SENOKOT S TAB PO SCH (20:26)
[2017-07-12] MEDS: DICLOFENAC EPOLAMINE 1.3 % PATCH TOP SCH (20:27)
[2017-07-12 22:00] VITALS: BP 134/62
[2017-07-12] MEDS: LEVEMIR (INSULIN DETEMIR) 1 UNITS/0.01ML SC SCH (22:32)
[2017-07-13] MEDS: PERCOCET 5MG/325MG TAB PO PRN ×4 (00:42→20:27)
[2017-07-13 06:00] VITALS: BP 118/58
[2017-07-13 06:36] LABS: BASO # 0.1 K/mm3 (0.0-0.2); BASO % 0.6 % (0.0-1.0); EOS # 0.1 K/mm3 (0.0-0.50); EOS % 0.9 % (0.0-3.0); LARGE UNSTAINED CELL # 0.1 K/mm3 (0.0-0.4); LARGE UNSTAINED CELL % 0.9 % (0.0-4.0); LYMPH # 1.3 K/mm3 (1.5-4.5); MEAN CORPUSCULAR HEMOGLOBIN 27.9 pg (27.0-33.0); MEAN CORPUSCULAR HGB CONC 30.2 g/dl (32.0-36.5); MEAN CORPUSCULAR VOLUME 92.6 fl (80.0-96.0); MONO # 0.6 K/mm3 (0.0-0.8); MONO % 5.2 % (0.0-5.0); NEUTROPHILS % 82.4 % (36.0-66.0); PLATELET COUNT, AUTOMATED 135 k/mm3 (150-450); RED CELL DISTRIBUTION WIDTH 17.3 % (11.5-14.5); WHITE BLOOD COUNT 12.1 K/mm3 (4.0-10.0)
[2017-07-13 06:50] LABS: ALBUMIN 2.5 GM/DL (3.2-5.2); ALBUMIN/GLOBULIN RATIO 0.63 (1.00-1.93); BILIRUBIN,TOTAL 0.7 MG/DL (0.2-1.0); CALCIUM LEVEL 7.7 MG/DL (8.8-10.2); CREATININE FOR GFR 2.52 MG/DL (0.70-1.30); GLOMERULAR FILTRATION RATE 26.8 (>42); MAGNESIUM LEVEL 2.3 MG/DL (1.8-2.4); POTASSIUM SERUM 3.6 MEQ/L (3.5-5.1); TOTAL PROTEIN 6.5 GM/DL (6.4-8.2)
[2017-07-13 07:04] LABS: ERYTHROCYTE SEDIMENTATION RATE 102 mm/hr (0-20)
[2017-07-13] MEDS: HumaLOG INSULIN (NovoLOG) PER UNIT SC SCH ×4 (07:30→20:31)
--- NOTE | 2017-07-13 08:58 | HPE ---
DATE OF ADMISSION: 07/12/2017 CHIEF COMPLAINT: Increased dyspnea, peripheral edema, one day history of right lateral leg pain. HISTORY OF PRESENT ILLNESS: This is a 72-year-old male patient of Dr. Josh Gómez who presents to [facility] emergency room with worsening right lateral leg pain since roughly 4:00 pm on 07/11/2017. He states this began after he tried to rise up from being seated for roughly 3 hours for an [employer] boat tour. He denies any precedent or subsequent trauma. The pain has worsened since then to the point that he cannot rise from a seated position. The pain is worse with rising and with weightbearing. He denies any weakness or numbness of the leg. No urinary symptoms. The patient denies any fevers, chills, cough, congestion, abdominal pain, change in bowel movements nor lower urinary tract symptoms. The patient does notice over the last two weeks to have increased bilateral lower extremity peripheral edema with mildly increased dyspnea on exertion. He denies any chest pain, palpitations, orthopnea, paroxysmal nocturnal dyspnea (PND), nor presyncope/syncope symptoms. PAST MEDICAL HISTORY: Congestive heart failure (CHF), chronic, secondary to diastolic dysfunction. Hypertension. Hypertensive heart disease. Coronary artery disease (CAD), status post 09/2015 drug-eluting stent (RAISSA) to the mid circumflex. Right bundle branch block. Left anterior fascicular block. Morbid obesity. Cerebrovascular disease, status post multiple prior lacunar infarcts. Hyperlipidemia. Diabetes mellitus, type 2, insulin requiring, poorly controlled. Recurrent nephrolithiasis. Obstructive sleep apnea (ADWOA). On chronic continuous positive airway pressure (CPAP). Severe lumbar spinal degenerative disc disease with spinal stenosis. Bilateral hip osteoarthritis. Polymyalgia rheumatica, on chronic prednisone therapy. Vitamin D deficiency. Depression. Chronic kidney disease, stage IV with baseline creatinine of 2.5 with secondary hyperparathyroidism. Chronic normocytic anemia with baseline hemoglobin of 10 to 11. Iron deficiency anemia. MEDICATIONS: Per [employer] (eCW), confirmed with patient: - allopurinol 300 by mouth every day - glipizide 10 by mouth by mouth twice a day - atorvastatin 40 by mouth every day - Januvia 25 by mouth every day - citalopram 20 mg every day - prednisone 20 mg by mouth every day - Pantoprazole 40 mg by mouth every day - trazodone 100 at bedtime - torsemide 60 mg by mouth twice a day - aspirin 325 every day - nitroglycerin sublingual 0.4 every 5 minutes as needed - magnesium oxide 600 by mouth twice a day - hydrocodone 5/300 every 6 hours as needed pain - Toujeo 80 units subcutaneous twice a day - vitamin D 1000 by mouth every day - Sensipar 30 mg by mouth every other day - ferrous sulfate 325 twice a day - Colace 100 by mouth twice a day - vitamin B6 50 by mouth every day - calcitriol 0.25 every day REVIEW OF SYSTEMS: Constitutional: No weight loss. No diplopia, no scatoma. ENT: No epistaxis or hoarseness. Cardiovascular: No chest pain, no palpitations. Pulmonary: Dyspnea as above. Gastrointestinal (GI): No odynophagia or melena. No hematochezia. Genitourinary: (): No dysuria or hematuria. Dermatology: No rash. Endocrine: No polydipsia or polyuria. Rheumatologic: Chronic left anterior chest pain. Neurological: No paresthesia or weakness. PHYSICAL EXAMINATION: Well-developed, well-nourished morbidly obese male in mild distress from right lateral leg pain. Alert and oriented times three. HEENT: Head is normocephalic, atraumatic. Ears: TMs normal bilateral. Eyes: Clear conjunctiva. Nose: Without discharge. Throat: Clear oropharynx. NECK: Without cervical adenopathy or thyromegaly. CARDIOVASCULAR: Regular rate and rhythm with 2/6 systolic ejection murmur, loudest at upper left sternal border. RESPIRATORY: Coarse rales bilateral, a third the way up lung field. Decreased breath sounds bilateral bases. No wheeze. ABDOMEN: Nontender, nondistended. Positive bowel sounds. No hepatosplenomegaly. EXTREMITIES: With 3 mm pretibial pitting edema. Pont tenderness of the right lateral thigh, specifically over the trochanteric bursa, but also tracking down the IT band. NEUROLOGIC: Nonfocal. 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 INVESTIGATIONS: WBC 14.8, hemoglobin and hematocrit 11.6 and 38.0. Platelets of 178. Neutrophils 77%. Sodium 146, potassium 4.0, chloride 103, bicarbonate of 33, BUN 67, creatinine at 2.4. Calcium 8.3, CRP of 2.8. MRI of the lumbar spine, limited evaluation showing diffuse spondylosis with facet arthritis. No acute compression deformity nor destructive lesion. There is bilateral L5-S1 foraminal encroachment. Hip and pelvis x-ray with moderate bilateral hip osteoarthritis without fracture. No malalignment. ASSESSMENT: This is a 72-year-old white male with acute on chronic diastolic heart failure. Also with leukocytosis with left shift with unknown etiology and with sudden right lateral leg pain causing inability to ambulate. PLAN: Cardiovascular: Admit the patient to [facility], med-surg bed. Will increase his torsemide from 60 twice a day to three times a day with 1500 mL fluid restriction on low salt diet. Will follow serial electrolytes and enzymes. Check baseline EKG. ID: The patient has elevated WBC with left shift. This could be related to chronic prednisone therapy. Will check blood cultures times three. UA: Urine culture. He has no focal signs of infection, therefore, did not start antibiotics. Renal: The patient is at his baseline creatinine. Will follow closely given his decompensation. Ortho: The patient has inability to ambulate. I think this is possibly related to acute trochanteric bursitis. IT band syndrome. While in the emergency room he got fentanyl 25 mcg IV times two and then became lethargic with desaturations to the 80s. Therefore, I did advise the patient will have to use a milder narcotic. He states his hydrocodone at home is not helping at all, therefore, will switch to oxycodone 5 to 10 mg every 4 hour as needed pain and Flector patch, two patches to right lateral leg. Will check x-ray of the right femur and knee. Start physical therapy (PT) for his weakness and deconditioning, and IT band syndrome. The patient may also need subacute rehabilitation. We could consider peritendinous injection. Endocrine: Will continue his home dose of basal insulin, although will switch Toujeo to Levemir and continue his glipizide, holding Januvia given elevated white count and will place on sliding-scale NovoLog insulin. Rheumatology: Will continue his home dose prednisone for his polymyalgia rheumatica (PMR).
[2017-07-13] MEDS: LEVEMIR (INSULIN DETEMIR) 1 UNITS/0.01ML SC SCH ×2 (09:00→10:48)
[2017-07-13] MEDS: MAGNESIUM OXIDE 400 MG TAB (MAG-OX) PO SCH ×2 (09:15→20:25)
[2017-07-13] MEDS: CINACALCET 30 MG TAB (SENSIPAR) PO SCH (09:16)
[2017-07-13] MEDS: glipiZIDE 10 MG TAB PO SCH ×2 (09:16→17:21)
[2017-07-13] MEDS: predniSONE 20 MG TAB PO SCH (09:16)
[2017-07-13] MEDS: CALCITRIOL 0.25 MCG CAP (S0169) PO SCH (09:16)
[2017-07-13] MEDS: ASPIRIN 325 MG TAB PO SCH (09:17)
[2017-07-13] MEDS: FERROUS SULFATE 325MG TAB PO SCH ×2 (09:17→20:26)
[2017-07-13] MEDS: ALLOPURINOL 300 MG TAB PO SCH (09:17)
[2017-07-13] MEDS: TORSEMIDE 20 MG TAB PO SCH ×3 (09:17→20:25)
[2017-07-13] MEDS: SENOKOT S TAB PO SCH ×2 (09:17→20:26)
--- NOTE | 2017-07-13 10:10 | IPNPDOC ---
Subjective Date Seen The patient was seen on 07/13/17. Subjective Chief Complaint/HPI The patient is a 72-year-old male admitted with a reason for visit of Acute On Chronic Diastolic Chf;Leukocystosis. Events since last encounter States continues with RIGHT hip pain. Denies other c/o. PT ordered. Constitutional: Denies: Chills, Fever, Night Sweats Skin: Denies: Rash, Lesions, Breakdown Pulmonary: Denies: Dyspnea, Cough Cardiovascular: Denies: Chest Pain, Palpitations, Orthopnea, Paroxysmal Noc. Dyspnea, Edema, Lt Headedness, Other Symptoms Genitourinary: Denies: Dysuria, Frequency, Incontinence, Retention Musculoskeletal: Reports: Other Symptoms (RIGHT hip pain) Objective Physical Examination General Exam: Positive: Alert, No Acute Distress Eye Exam: Positive: PERRLA, Conjunctiva & lids normal, EOMI, Negative: Sclera icteric ENT Exam: Positive: Atraumatic, Mucous membr. moist/pink, Pharynx Normal Neck Exam: Positive: Supple, Negative: JVD, thyromegaly Chest Exam: Positive: Clear to auscultation, Normal air movement Heart Exam: Positive: Rate Normal, Regular Rhythm, Normal S1, Normal S2, Negative: Murmurs, Rubs Abdomen Exam: Positive: Normal bowel sounds, Soft, Negative: Tenderness, Hepatospenomegaly Extremity Exam: Positive: Other (RIGHT hip tenderness on palpation) Psych Exam: Positive: Mental status NL, Mood NL, Oriented x 3 Assessment /Plan Problems (1) Acute on chronic diastolic CHF (congestive heart failure) Status: Acute Problem Text: Net -1575 on fluid volume yesterday. - continue torsemide TID (2) Intractable pain Status: Acute Problem Text: PT involvement today. Flector patch and oxycodone prn pain. May benefit from prednisone. Will monitor how pain evolves. (3) CKD (chronic kidney disease) Status: Chronic Problem Text: Cr better than baseline upon admission (4) Polymyalgia rheumatica syndrome Status: Chronic Problem Text: usually involved wrist with exacerbation. May be contributing factor to hip pain. (5) CAD (coronary artery disease) Status: Chronic Response to Treatment: Stable Problem Specific Plan: Monitor Clinically (6) General weakness Status: Acute Problem Text: PT ordered. (7) Arthralgia of hip, right Status: Chronic Response to Treatment: Stable Problem Specific Plan: Monitor Clinically (8) T2DM (type 2 diabetes mellitus) Status: Chronic Response to Treatment: Uncontrolled Problem Specific Plan: Monitor Clinically (9) Hyperlipidemia Status: Chronic Response to Treatment: Stable Problem Specific Plan: Monitor Clinically (10) Depression Status: Chronic Response to Treatment: Stable Problem Specific Plan: Monitor Clinically (11) Gout Status: Chronic Response to Treatment: Stable Problem Specific Plan: Monitor Clinically Plan/VTE VTE Prophylaxis Ordered?: Yes (Lovenox) Plan Family Medicine Attending Note: Patient seen and examined this afternoon; I discussed with BERTHA Katz and I agree with her note above. Patient' s lungs are relatively clear and he is diuresing well - continue torsemide. His primary complaint today is severe right hip and right posterior thigh pain that worsens with movement. I reviewed extensive imaging studies that were performed yesterday - severe arthritis noted in that hip but no acute fracture or dislocation. He is primarily tender over the posterior aspect of his right thigh and lower buttock and he has no lower back tenderness at all. He currently has a Diclofenac patch on, and has been receiving oxycodone around the clock. PT is about to evaluate him - will await their recommendations. ( KES) VS, I&O, 24H, Fishbone Vital Signs/I&O Vital Signs Date Time Temp Pulse Resp B/P (MAP) Pulse Ox O2 Delivery O2 Flow Rate FiO2 07/13/17 09:15 17 07/13/17 06:00 97.4 57 118/58 (78) 96 Nasal Cannula 2.0 I&O- Last 24 Hours up to 6 AM 07/13/17 05:59 Intake Total 0 ml Output Total 1575 ml Balance -1575 ml Laboratory Data 24H LABS Laboratory Tests 2 07/12/17 10:53: Bedside Glucose (Misc Panel) 96 07/12/17 15:38: Erythrocyte Sedimentation Rate 73H, Lactic Acid Level 2.6*H 07/12/17 17:09: Bedside Glucose (Misc Panel) 171H 07/12/17 20:02: Lactic Acid Followup at 4 Hours 1.4 07/12/17 20:15: Bedside Glucose (Misc Panel) 162H 07/13/17 06:21: White Blood Count 12.1H, Red Blood Count 3.81L, Hemoglobin 10.6L, Hematocrit 35.3L, Mean Corpuscular Volume 92.6, Mean Corpuscular Hemoglobin 27.9, Mean Corpuscular Hemoglobin Concent 30.2L, Red Cell Distribution Width 17.3H, Platelet Count 135L, Neutrophils (%) (Auto) 82.4H, Lymphocytes (%) (Auto) 10.0L , Monocytes (%) (Auto) 5.2H, Eosinophils (%) (Auto) 0.9, Basophils (%) (Auto) 0.6, Neutrophils # (Auto) 10.0H, Lymphocytes # (Auto) 1.3L, Monocytes # (Auto) 0.6, Eosinophils # (Auto) 0.1, Basophils # (Auto) 0.1, Large Unclassified Cells % 0.9, Large Unclassified Cells # 0.1, Erythrocyte Sedimentation Rate 102H, Anion Gap 8, Glomerular Filtration Rate 26.8L, Blood Urea Nitrogen 64H, Creatinine 2.52H, Sodium Level 145, Potassium Level 3.6, Chloride Level 103, Carbon Dioxide Level 34H, Calcium Level 7.7L, Aspartate Amino Transf (AST/SGOT) 48H, Alanine Aminotransferase (ALT/SGPT) 68, Alkaline Phosphatase 120H, Total Bilirubin 0.7, Total Protein 6.5, Albumin 2.5L, Magnesium Level 2.3, C-Reactive Protein, Quantitative 18.10H, Albumin/Globulin Ratio 0.63L 07/13/17 07:48: Bedside Glucose (Misc Panel) 118H CBC/BMP Laboratory Tests 07/13/17 06:21 Red Blood Count 3.81 L, Mean Corpuscular Volume 92.6, Mean Corpuscular Hemoglobin 27.9, Mean Corpuscular Hemoglobin Concent 30.2 L, Red Cell Distribution Width 17.3 H, Neutrophils (%) (Auto) 82.4 H, Lymphocytes (%) (Auto ) 10.0 L, Monocytes (%) (Auto) 5.2 H, Eosinophils (%) (Auto) 0.9, Basophils (%) (Auto) 0.6, Neutrophils # (Auto) 10.0 H, Lymphocytes # (Auto) 1.3 L, Monocytes # (Auto) 0.6, Eosinophils # (Auto) 0.1, Basophils # (Auto) 0.1, Calcium Level 7.7 L, Aspartate Amino Transf (AST/SGOT) 48 H, Alanine Aminotransferase (ALT/ SGPT) 68, Alkaline Phosphatase 120 H, Total Bilirubin 0.7, Total Protein 6.5, Albumin 2.5 L Microbiology Microbiology 07/12/17 Blood Culture, Received Pending 07/12/17 Blood Culture, Received Pending Carrie Zarate Jul 13, 2017 10:10 ROBERTO GORDILLO MD Jul 13, 2017 12:14
[2017-07-13] MEDS: DICLOFENAC EPOLAMINE 1.3 % PATCH TOP SCH ×2 (11:04→20:27)
--- NOTE | 2017-07-13 11:54 | ECGEPIP ---
Stationary ECG Study [facility] Test Date: 2017-07-13 Pat Name: MOLLY OVALLE Department: Room: [place] [address] Gender: M [employer] Tester: ALEX : 1945 Requested By: Michael GARCIA Order Number: [id number] Reading MD: Matt Blackwood Measurements Intervals [place] Rate: 86 P: 14 [place]: 145 QRS: -49 QRSD: 124 T: 60 QT: 418 QTc: 501 Interpretive Statements SINUS RHYTHM RIGHT BUNDLE BRANCH BLOCK LEFT ANTERIOR FASCICULAR BLOCK VOLTAGE CRITERIA FOR LVH, CONSIDER NORMAL VARIANT Similar to tracing done 05-26-16 Electronically Signed On 07-13-2017 11:54:24 EDT by Matt Blackwood
[2017-07-13] MEDS: ENOXAPARIN 30 MG/0.3 ML SYR (J1650) SC SCH (11:57)
[2017-07-13 14:00] VITALS: BP 140/63
[2017-07-13] MEDS: CitaloPRAM (CeleXA) 20 MG TAB PO SCH (20:24)
[2017-07-13] MEDS: traZODone 100 MG TAB PO SCH (20:24)
[2017-07-13] MEDS: ATORVASTATIN 20 MG TAB PO SCH (20:25)
[2017-07-13] MEDS: PANTOPRAZOLE 40MG TAB (PROTONIX) PO SCH (20:25)
[2017-07-13] MEDS: TOUJEO INSULIN SC SCH (20:29)
[2017-07-13 22:00] VITALS: BP 129/61
[2017-07-14] MEDS: PERCOCET 5MG/325MG TAB PO PRN (05:31)
[2017-07-14 06:00] VITALS: BP 132/61
[2017-07-14 06:56] LABS: BASO % 0.2 % (0.0-1.0); EOS # 0.1 K/mm3 (0.0-0.50); EOS % 0.8 % (0.0-3.0); LARGE UNSTAINED CELL # 0.1 K/mm3 (0.0-0.4); LYMPH # 1.2 K/mm3 (1.5-4.5); MEAN CORPUSCULAR HEMOGLOBIN 27.8 pg (27.0-33.0); MEAN CORPUSCULAR HGB CONC 30.1 g/dl (32.0-36.5); MEAN CORPUSCULAR VOLUME 92.6 fl (80.0-96.0); MONO # 0.4 K/mm3 (0.0-0.8); MONO % 4.6 % (0.0-5.0); NEUTROPHILS # 7.4 K/mm3 (1.8-7.7); NEUTROPHILS % 81.5 % (36.0-66.0); PLATELET COUNT, AUTOMATED 120 k/mm3 (150-450); RED CELL DISTRIBUTION WIDTH 17.1 % (11.5-14.5); WHITE BLOOD COUNT 9.1 K/mm3 (4.0-10.0)
[2017-07-14 07:14] LABS: ALBUMIN 2.2 GM/DL (3.2-5.2); ALBUMIN/GLOBULIN RATIO 0.54 (1.00-1.93); BILIRUBIN,TOTAL 0.5 MG/DL (0.2-1.0); CREATININE FOR GFR 2.84 MG/DL (0.70-1.30); GLOMERULAR FILTRATION RATE 23.4 (>42); POTASSIUM SERUM 3.9 MEQ/L (3.5-5.1); TOTAL PROTEIN 6.3 GM/DL (6.4-8.2)
[2017-07-14 08:00] VITALS: BP 117/56
[2017-07-14] MEDS: HumaLOG INSULIN (NovoLOG) PER UNIT SC SCH ×4 (08:16→21:27)
[2017-07-14] MEDS: glipiZIDE 10 MG TAB PO SCH ×2 (08:16→17:48)
--- NOTE | 2017-07-14 08:53 | IPNPDOC ---
Subjective Date Seen The patient was seen on 07/14/17. Subjective Chief Complaint/HPI The patient is a 72-year-old male admitted with a reason for visit of NM. Events since last encounter Patient noting significant improvement in hip pain. States breathing improved. Agreeable to rehab services post hospital [place]> Skin: Denies: Rash, Lesions, Breakdown Pulmonary: Denies: Dyspnea, Cough Cardiovascular: Denies: Chest Pain, Palpitations, Orthopnea, Paroxysmal Noc. Dyspnea, Lt Headedness Musculoskeletal: Reports: Joint Pain (RIGHT hip) Objective Physical Examination General Exam: Positive: Alert, No Acute Distress Eye Exam: Positive: PERRLA, Conjunctiva & lids normal, EOMI, Negative: Sclera icteric ENT Exam: Positive: Atraumatic, Mucous membr. moist/pink, Pharynx Normal Neck Exam: Positive: Supple, Negative: JVD, thyromegaly Chest Exam: Positive: Clear to auscultation, Normal air movement Heart Exam: Positive: Rate Normal, Regular Rhythm, Normal S1, Normal S2, Negative: Murmurs, Rubs Abdomen Exam: Positive: Normal bowel sounds, Soft, Negative: Tenderness, Hepatospenomegaly Extremity Exam: Positive: Other (RIGHT hip tenderness on palpation, posterior aspect) Psych Exam: Positive: Mental status NL, Mood NL, Oriented x 3 Assessment /Plan Problems (1) Leukocytosis Status: Acute Problem Text: no obvious source 07/14 WBC 9.1 (07/12 14.8), afebrile since 01/18 3:20 100.6 07/12 BCX NG x 2 07/12 UCX P (2) Physical deconditioning Status: Acute Problem Text: 07/[address] rehab at [facility]-plan SNF in AM (3) Acute on chronic diastolic CHF (congestive heart failure) Status: Acute Problem Text: 07/14/17: Appears at baseline. Cr elevated will drop back to HD torsemide 60 BID from 60 TID (4) Intractable pain Status: Acute Problem Text: acutely R ITB syndrome 07/14/17: improving. Continue with PT. PT involvement today. Flector patch and oxycodone prn pain 07/12 R femur/knee NAD (5) CKD (chronic kidney disease) Permanent Comment: Baseline Cr ~2.7 Last Edited By: Layla Farris MD on Jul 12:09 Status: Chronic Problem Text: Cr better than baseline upon admission (6) Polymyalgia rheumatica syndrome Status: Chronic Problem Text: usually involved wrist with exacerbation. May be contributing factor to hip pain. (7) CAD (coronary artery disease) Status: Chronic Response to Treatment: Stable Problem Specific Plan: Monitor Clinically (8) T2DM (type 2 diabetes mellitus) Status: Chronic Response to Treatment: Uncontrolled Problem Specific Plan: Monitor Clinically (9) Full code status Permanent Comment: 07/14 patient and want full code-DNR rescinded (on admission, stated DNR) Last Edited By: Michael Lambert MD on Jul 14, 2017 16 :36 Problem Text: 07/14 patient and want full code-DNR rescinded (on admission , stated DNR) Plan/VTE VTE Prophylaxis Ordered?: Yes (Lovenox) Plan Therapy: PT Anticipated Discharge: Sub Acute Rehab VS, I&O, 24H, Fishbone Vital Signs/I&O Vital Signs Date Time Temp Pulse Resp B/P (MAP) Pulse Ox O2 Delivery O2 Flow Rate FiO2 07/14/17 06:01 18 Room Air 07/14/17 06:00 97.0 72 132/61 (84) 94 4.0 I&O- Last 24 Hours up to 6 AM 07/14/17 06:00 Intake Total 1050 ml Output Total 2000 ml Balance -950 ml Laboratory Data 24H LABS Laboratory Tests 2 07/13/17 11:24: Bedside Glucose (Misc Panel) 124H 07/13/17 16:19: Bedside Glucose (Misc Panel) 219H 07/13/17 20:28: Bedside Glucose (Misc Panel) 274H 07/14/17 06:34: White Blood Count 9.1, Red Blood Count 3.46L, Hemoglobin 9.6L, Hematocrit 32.0L , Mean Corpuscular Volume 92.6, Mean Corpuscular Hemoglobin 27.8, Mean Corpuscular Hemoglobin Concent 30.1L, Red Cell Distribution Width 17.1H, Platelet Count 120L, Neutrophils (%) (Auto) 81.5H, Lymphocytes (%) (Auto) 12.0L , Monocytes (%) (Auto) 4.6, Eosinophils (%) (Auto) 0.8, Basophils (%) (Auto) 0.2 , Neutrophils # (Auto) 7.4, Lymphocytes # (Auto) 1.2L, Monocytes # (Auto) 0.4, Eosinophils # (Auto) 0.1, Basophils # (Auto) 0.0, Large Unclassified Cells % 1.0 , Large Unclassified Cells # 0.1, Anion Gap 4L, Glomerular Filtration Rate 23.4L , Blood Urea Nitrogen 72H, Creatinine 2.84H, Sodium Level 141, Potassium Level 3.9, Chloride Level 101, Carbon Dioxide Level 36H, Calcium Level 8.0L, Aspartate Amino Transf (AST/SGOT) 41H, Alanine Aminotransferase (ALT/SGPT) 56, Alkaline Phosphatase 118H, Total Bilirubin 0.5, Total Protein 6.3L, Albumin 2.2L , Albumin/Globulin Ratio 0.54L CBC/BMP Laboratory Tests 07/14/17 06:34 Red Blood Count 3.46 L, Mean Corpuscular Volume 92.6, Mean Corpuscular Hemoglobin 27.8, Mean Corpuscular Hemoglobin Concent 30.1 L, Red Cell Distribution Width 17.1 H, Neutrophils (%) (Auto) 81.5 H, Lymphocytes (%) (Auto ) 12.0 L, Monocytes (%) (Auto) 4.6, Eosinophils (%) (Auto) 0.8, Basophils (%) ( Auto) 0.2, Neutrophils # (Auto) 7.4, Lymphocytes # (Auto) 1.2 L, Monocytes # ( Auto) 0.4, Eosinophils # (Auto) 0.1, Basophils # (Auto) 0.0, Calcium Level 8.0 L , Aspartate Amino Transf (AST/SGOT) 41 H, Alanine Aminotransferase (ALT/SGPT) 56 , Alkaline Phosphatase 118 H, Total Bilirubin 0.5, Total Protein 6.3 L, Albumin 2.2 L Microbiology Microbiology 07/12/17 Blood Culture - Preliminary, Resulted No growth after 24 hours . All specim... 07/12/17 Blood Culture - Preliminary, Resulted No growth after 24 hours . All specim... 07/14/17 Urine Culture, Received Pending Carrie Zarate Jul 14, 2017 08:53 Michael Lambert M.D. Jul 14, 2017 16:33
[2017-07-14] MEDS: MAGNESIUM OXIDE 400 MG TAB (MAG-OX) PO SCH ×2 (10:06→21:26)
[2017-07-14] MEDS: TORSEMIDE 20 MG TAB PO SCH ×3 (10:07→21:26)
[2017-07-14] MEDS: FERROUS SULFATE 325MG TAB PO SCH ×2 (10:08→21:25)
[2017-07-14] MEDS: SENOKOT S TAB PO SCH ×2 (10:08→21:25)
[2017-07-14] MEDS: ASPIRIN 325 MG TAB PO SCH (10:09)
[2017-07-14] MEDS: CALCITRIOL 0.25 MCG CAP (S0169) PO SCH (10:09)
[2017-07-14] MEDS: ALLOPURINOL 300 MG TAB PO SCH (10:09)
[2017-07-14] MEDS: predniSONE 20 MG TAB PO SCH (10:10)
[2017-07-14] MEDS: ENOXAPARIN 30 MG/0.3 ML SYR (J1650) SC SCH (10:11)
[2017-07-14] MEDS: TOUJEO INSULIN SC SCH ×2 (10:12→21:27)
[2017-07-14] MEDS: DICLOFENAC EPOLAMINE 1.3 % PATCH TOP SCH ×2 (10:13→21:27)
[2017-07-14 14:00] VITALS: BP 146/67
--- NOTE | 2017-07-14 18:02 | ECHO ---
DATE OF PROCEDURE: 07/14/2017 AGE: 72 GENDER: Male HEIGHT: 68 inches. WEIGHT: 280 pounds. BODY SURFACE AREA: 2.36 sq m. INPATIENT: [address] [place] [address], room 4218 REFERRING PHYSICIAN: Dr. Michael Lambert INDICATION: Edema. MEASUREMENTS: 2D MEASUREMENTS: RV - 4.8 cm LV- 5.5 cm Septum - 1.3 cm Posterior wall - 1.3 cm Aortic root - 3.9 cm LA - 4.3 cm LVEF - 75% DOPPLER MEASUREMENTS: AV - 2.6 m/s LVOT - 1.1 m/s LVOT Diameter - 2.4 cm Mean AV systolic gradient- 13 mmHg MV-E: 150 A: 160 EA ratio 0.9 Early mitral deceleration time 246 ms E-prime - 3 A-prime - 8 E/E prime ratio 30 PV - 1.0 m/s Pulmonary artery acceleration time 95 ms RVSP - 68 mmHg IVC - 2.6 cm COMMENTS: Normal sinus rhythm with right bundle branch block. Technically challenging study in light of the patient's body habitus but diagnostically useful information was still obtained. Mildly dilated left atrium. Left ventricle upper limits of normal in size. Moderately dilated right ventricle and right atrium. Left ventricle (LV) wall thickness was mildly increased symmetrically. On real-time imaging from the parasternal and apical projections wall motion was symmetrical and hyperkinetic. Severe mitral annular calcification with slight thickening of the mitral leaflets and degree of "low flow" but no posterior systolic buckling. Three equal size aortic cusps with slight asymmetrical thickening of the left coronary cusp with slightly reduced cusp separation. Aortic root size was upper limits of normal to slightly dilated. No apparent intracardiac mass or pericardial effusion. Color flow Doppler study taken from the parasternal and apical projections showed trace aortic and mitral insufficiency with mild tricuspid insufficiency. Guided continuous wave Doppler of his aortic valve and pulsed Doppler study of his LV outflow tract taken from the parasternal long axis and five chamber projection showed an increased peak systolic velocity and mean gradient with dimensionless index of 0.5 against a significant degree of aortic stenosis. Pulsed and continuous wave Doppler of his LV inflow tract taken from the apical four-chamber projection showed normal diastolic filling velocities against mitral stenosis. It was slightly more prominent late diastolic / atrial dependent filling pattern. Diastolic dysfunction was further confirmed by a prolonged early mitral deceleration time and tissue Doppler of his mitral annulus. Estimated mean left atrial pressure was significantly elevated. Pulsed and continuous wave Doppler of his pulmonary trunk showed a normal peak systolic velocity against right ventricle (RV) outflow tract obstruction. His pulmonary artery acceleration time was abbreviated consistent with an elevated pulmonary vascular resistance. Guided continuous wave Doppler of his tricuspid valve allowed our estimation of his right ventricular systolic pressure (severely increased). His inferior vena cava was moderately dilated with reduced respiratory collapse consistent with an elevated central venous pressure / right heart failure. CONCLUSIONS: Technically challenging study in light of his body habitus. Mild concentric left ventricle hypertrophy with hyperkinetic wall motion. Mildly dilated left atrium with Doppler evidence of an impairment of LV diastolic function and significantly elevated mean left atrial pressure. Moderately dilated right heart chambers with Doppler evidence of severe pulmonary hypertension. Moderately dilated IVC with reduced respiratory collapse in keeping with elevated central venous pressure / right heart failure. Moderate aortic valvular sclerosis with marginal stenosis and trace insufficiency. Borderline dilated aortic root. Severe mitral annular calcification without inflow tract obstruction and only trace insufficiency. Comparing today's study with that of 08/20/2015, his estimated mean left atrial pressure was higher than remains no more than a marginal degree of LV outflow tract obstruction and pulmonary estimated pulmonary arterial pressure has significantly increased.
[2017-07-14] MEDS: ATORVASTATIN 20 MG TAB PO SCH (21:25)
[2017-07-14] MEDS: PANTOPRAZOLE 40MG TAB (PROTONIX) PO SCH (21:25)
[2017-07-14] MEDS: CitaloPRAM (CeleXA) 20 MG TAB PO SCH (21:25)
[2017-07-14] MEDS: traZODone 100 MG TAB PO SCH (21:25)
[2017-07-14 22:00] VITALS: BP 143/63
[2017-07-15 06:00] VITALS: BP 144/66
[2017-07-15 06:54] LABS: BASO % 0.2 % (0.0-1.0); EOS # 0.1 K/mm3 (0.0-0.50); EOS % 0.9 % (0.0-3.0); LARGE UNSTAINED CELL # 0.1 K/mm3 (0.0-0.4); LARGE UNSTAINED CELL % 1.2 % (0.0-4.0); LYMPH # 1.3 K/mm3 (1.5-4.5); LYMPH % 12.2 % (24.0-44.0); MEAN CORPUSCULAR HEMOGLOBIN 27.8 pg (27.0-33.0); MEAN CORPUSCULAR VOLUME 92.6 fl (80.0-96.0); MONO # 0.4 K/mm3 (0.0-0.8); MONO % 4.5 % (0.0-5.0); NEUTROPHILS # 7.9 K/mm3 (1.8-7.7); NEUTROPHILS % 81.1 % (36.0-66.0); PLATELET COUNT, AUTOMATED 132 k/mm3 (150-450); WHITE BLOOD COUNT 9.8 K/mm3 (4.0-10.0)
[2017-07-15 07:13] LABS: ALBUMIN 2.2 GM/DL (3.2-5.2); ALBUMIN/GLOBULIN RATIO 0.51 (1.00-1.93); BILIRUBIN,TOTAL 0.4 MG/DL (0.2-1.0); CALCIUM LEVEL 8.4 MG/DL (8.8-10.2); CREATININE FOR GFR 2.63 MG/DL (0.70-1.30); GLOMERULAR FILTRATION RATE 25.5 (>42); POTASSIUM SERUM 3.9 MEQ/L (3.5-5.1); TOTAL PROTEIN 6.5 GM/DL (6.4-8.2)
[2017-07-15] MEDS: glipiZIDE 10 MG TAB PO SCH (07:30)
[2017-07-15] MEDS: ASPIRIN 325 MG TAB PO SCH (08:36)
[2017-07-15] MEDS: TORSEMIDE 20 MG TAB PO SCH (08:36)
[2017-07-15] MEDS: ENOXAPARIN 30 MG/0.3 ML SYR (J1650) SC SCH (08:36)
[2017-07-15] MEDS: ALLOPURINOL 300 MG TAB PO SCH (08:37)
[2017-07-15] MEDS: HumaLOG INSULIN (NovoLOG) PER UNIT SC SCH ×2 (08:37→11:30)
[2017-07-15] MEDS: predniSONE 20 MG TAB PO SCH (08:37)
[2017-07-15] MEDS: MAGNESIUM OXIDE 400 MG TAB (MAG-OX) PO SCH (08:37)
[2017-07-15] MEDS: CINACALCET 30 MG TAB (SENSIPAR) PO SCH (08:37)
[2017-07-15] MEDS: FERROUS SULFATE 325MG TAB PO SCH (08:38)
[2017-07-15] MEDS: TOUJEO INSULIN SC SCH (08:38)
[2017-07-15] MEDS: CALCITRIOL 0.25 MCG CAP (S0169) PO SCH (08:38)
[2017-07-15] MEDS: DICLOFENAC EPOLAMINE 1.3 % PATCH TOP SCH (08:45)
[2017-07-15] MEDS: SENOKOT S TAB PO SCH (08:45)
--- NOTE | 2017-07-15 10:42 | DSES ---
DATE OF ADMISSION: 07/12/2017 DATE OF DISCHARGE: ATTENDING PHYSICIAN: Dr. Michael Lambert PRIMARY CARE PHYSICIAN: Dr. Josh Gómez HISTORY OF PRESENT ILLNESS: 72-year-old male who presented to [facility] emergency room with worsening right lateral leg pain since approximately 4 pm on 07/11/2017. He states this began after he tried to get off of a bench after completing a 3 hour [address] tour on the [facility]. He denies any prior traumas. The patient also was found to have decompensated congestive heart failure and was subsequently admitted to the family medicine service. Imaging completed on admission include MRI of the lumbosacral (LS) spine, which showed spondylosis, spinal stenosis at L3-L4 with foraminal encroachment at several levels. Hip x-ray demonstrated no acute disease. Chest x-ray suggested congestive heart failure (CHF) with pulmonary edema. Knee and femur x-ray were both negative. HOSPITAL COURSE: Patient received torsemide 60 mg by mouth three times a day, which is an increase from his twice a day dosing. He diuresed well with 3 liters of net negative fluid balance. Breathing continued to improve as well as his mobility with assistance with physical therapy. Today, patient requested to go home despite recommendations by physical therapy for rehabilitation. He was re-evaluated by physical therapy and was subsequently cleared and deemed safe and appropriate to return to his home. On physical exam today: Vital signs are stable. He is afebrile. HEENT: Neck is supple, without lymphadenopathy or jugular venous distention (JVD). Cardiovascular: Heart rate and rhythm are regular. Pulmonary: Lungs are clear throughout. Abdomen is soft and nontender. Bilateral lower extremities are boggy with +2 edema, however this is at baseline for this patient. Neurologic: He is alert and oriented times three. Psychiatric: Affect is appropriate. Conversation is congruent. Patient maintains eye contact. ASSESSMENT/DISCHARGE DIAGNOSES: 1. Intractable right hip pain. 2. Acute on chronic diastolic congestive heart failure. Secondary diagnoses include: 1. Hypertensive heart disease. 2. Coronary artery disease. 3. Morbid obesity. 4. History of cerebrovascular disease (CVA) with multiple lacunar infarcts. 5. Hyperlipidemia. 6. Insulin-dependent diabetes, type 2. 7. Recurrent nephrolithiasis. 8. Obstructive sleep apnea (ADWOA). 9. Lumbar spinal degenerative disc disease with spinal stenosis. 10. Bilateral hip osteoarthritis. 11. Polymyalgia rheumatica. 12. Vitamin D deficiency. 13. Chronic kidney disease, stage IV. 14. Depression. 15. Chronic normocytic anemia. PLAN: Patient will be discharged home with [facility] to provide physical therapy within the home. Diet is carbohydrate consistent, 2 gram sodium, 1500 mL fluid restriction. He will followup with myself or Dr. Josh Gómez within the next 5-7 days. Medications are as follows: - Tylenol 325 two by mouth every 4 hours as needed for pain - allopurinol 300 by mouth daily - aspirin 325 mg by mouth daily - atorvastatin 40 mg by mouth nightly - calcitriol 0.25 mcg by mouth daily - vitamin D 1000 international units by mouth every evening - Sensipar 30 mg by mouth every 2 days - citalopram 20 mg by mouth nightly - ferrous sulfate 325 mg by mouth twice a day - glipizide 10 mg by mouth twice a day - magnesium oxide 400 mg tablets, 600 mg by mouth twice a day - nitroglycerin 0.,4 mg sublingual as needed, angina - nystatin powder topically twice a day as needed, rash - pantoprazole sodium 40 mg by mouth nightly - prednisone 20 mg by mouth daily - pyridoxine 50 mg by mouth every evening - Januvia 25 mg by mouth daily - torsemide 20 mg tablets, three by mouth twice a day - Toujeo (Solo[employer]) 80 units subcutaneous twice a day - trazodone 100 mg by mouth nightly Patient is discharged in stable and satisfactory condition with no further questions at time of discharge.
[2017-07-15 14:00] VITALS: BP 148/70
== END 2017-07-15 16:04 | disposition home health service (06) | DRG 291 ==
LOC: EDBD 07:36 → M ED 07:36 → M ED INP 15:18 → M MSPAV 16:58
PROVIDERS: ADMIT Family Medicine; ATTEND Family Medicine
DX: I13.0 Hypertensive heart and chronic kidney disease with heart failure and stage 1 through stage 4 chronic kidney disease, or unspecified chronic kidney disease (principal); I50.33 Acute on chronic diastolic (congestive) heart failure; Z68.42 Body mass index [BMI] 45.0-49.9, adult; N18.4 Chronic kidney disease, stage 4 (severe); N25.81 Secondary hyperparathyroidism of renal origin; M35.3 Polymyalgia rheumatica; F32.9 Major depressive disorder, single episode, unspecified; E78.5 Hyperlipidemia, unspecified; M25.551 Pain in right hip; E66.01 Morbid (severe) obesity due to excess calories; I25.10 Atherosclerotic heart disease of native coronary artery without angina pectoris; E11.9 Type 2 diabetes mellitus without complications; G47.33 Obstructive sleep apnea (adult) (pediatric); Z99.89 Dependence on other enabling machines and devices; Z79.52 Long term (current) use of systemic steroids; Z79.899 Other long term (current) drug therapy; Z79.4 Long term (current) use of insulin; Z86.73 Personal history of transient ischemic attack (TIA), and cerebral infarction without residual deficits; M17.0 Bilateral primary osteoarthritis of knee

== ENCOUNTER 2017-08-02 11:41 | Inpatient (IN) | payer MEDICARE, MEDICAID ==
[~2017-08-02] VITALS: Ht 172.7 cm; Wt 131.6 kg
[~2017-08-02 11:41] MED LIST changes: +CALC1CAP31 PO; +CINA30TA PO; +CITA20TA4 PO; +TOUJ1.2I SQ; +VITA50TA49 PO
[2017-08-02] MEDS ORDERED: LIDO1PAD TOP (12:54)
[2017-08-02] MEDS ORDERED: VALA1TAB2 PO (12:54)
[2017-08-02] MEDS ORDERED: GABA-279 PO (12:54)
[2017-08-02] MEDS ORDERED: ONDANSETRON 4MG/2ML VIAL (J2405) IV ONE (13:00)
[2017-08-02] MEDS ORDERED: TYLE500T78 PO (13:06)
[2017-08-02 13:19] LABS: BASO % 0.1 % (0.0-1.0); EOS % 0.1 % (0.0-3.0); IMMATURE GRANULOCYTE % 1.4 % (0-0); LYMPH # 0.6 10^3/uL (1.5-4.5); LYMPH % 3.9 % (24.0-44.0); MEAN CORPUSCULAR HGB CONC 30.5 g/dl (32.0-36.5); MEAN CORPUSCULAR VOLUME 91.6 fl (80.0-96.0); MONO # 0.8 10^3/uL (0.0-0.8); MONO % 5.6 % (0.0-5.0); NEUTROPHILS # 13.1 10^3/uL (1.8-7.7); NEUTROPHILS % 88.9 % (36.0-66.0); PLATELET COUNT, AUTOMATED 140 10^3/uL (150-450); RED CELL DISTRIBUTION WIDTH 17.8 % (11.5-14.5); WHITE BLOOD COUNT 14.7 10^3/uL (4.0-10.0)
[2017-08-02 13:20] LABS: ADD MANUAL DIFFER NO; DIFF SLIDE NUMBER 255
--- NOTE | 2017-08-02 13:34 | REP ---
Portable chest, 01:08 p.m., single AP view, patient sitting: Comparison is 07/12/2017. The left costophrenic angle is opacified as previously. This is nonspecific and could represent an effusion, infiltrate or combination. The remainder of the lung gregory are clear. Cardiac size is upper normal. The deysi, mediastinum, and bony thorax are well. Impression: The left costophrenic angle is opacified. This is nonspecific. Signed by Ubaldo Barnes MD 08/02/2017 01:27 P
[2017-08-02] MEDS ORDERED: NS 500 ML IV ONE (14:00)
[2017-08-02 15:01] LABS: ALBUMIN 2.9 GM/DL (3.2-5.2); ALBUMIN/GLOBULIN RATIO 0.76 (1.00-1.93); BILIRUBIN,DIRECT 0.3 MG/DL (0.0-0.2); BILIRUBIN,TOTAL 0.7 MG/DL (0.2-1.0); CALCIUM LEVEL 7.6 MG/DL (8.8-10.2); CREATININE FOR GFR 2.67 MG/DL (0.70-1.30); GLOMERULAR FILTRATION RATE 25.1 (>42); TOTAL PROTEIN 6.7 GM/DL (6.4-8.2)
[2017-08-02] MEDS ORDERED: HYDR-2808 PO (16:19)
[2017-08-02] MEDS ORDERED: ZYLO300T4 PO (16:19)
[2017-08-02] MEDS ORDERED: DOCU100C16 PO (16:19)
[2017-08-02] MEDS ORDERED: ACETAMINOPHEN 500 MG TAB PO PRN (16:45)
[2017-08-02] MEDS ORDERED: NITROGLYCERIN 0.4 MG SUBL TABLET SL PRN (16:45)
[2017-08-02] MEDS ORDERED: ONDANSETRON 4MG/2ML VIAL (J2405) IV PRN (17:00)
[2017-08-02] MEDS ORDERED: GLUCAGON FOR INJ 1 MG VIAL (J1610) SC PRN (17:00)
[2017-08-02] MEDS ORDERED: DEXTROSE 50% 50 ML SYRINGE IV PRN (17:00)
[2017-08-02] MEDS ORDERED: GLUCOSE 4 GM CHEW TABLET PO PRN (17:00)
[2017-08-02] MEDS: HumaLOG INSULIN (NovoLOG) PER UNIT SC SCH ×2 (17:30→22:22)
--- NOTE | 2017-08-02 17:42 | HPE ---
DATE OF ADMISSION: 08/02/2017 PRIMARY CARE PROVIDER: Dr. Josh Gómez CHIEF COMPLAINT: Weakness. HISTORY OF PRESENT ILLNESS: The patient is a 72-year-old man who was recently admitted with decompensated diastolic congestive heart failure who returns with feeling of weakness and reportedly a fever of 101 earlier this morning. The patient had been seen by his primary care provider (PCP) on 07/27/2017. At that time, he was diagnosed with shingles. He was started on a Lidoderm patch and Neurontin 100 mg three times a day as well as Valtrex 1 gram twice a day. The patient had reported subtle improvement and progression of his dermatomal rash. At this time, it does appear to be resolving. He tells me that the pain is slightly improved from when he saw his primary care provider 6-7 days ago. However, today, he felt too weak to get out of bed. His home health aide did come to visit and he was unable to participate and get out of bed. As such, he was referred to the emergency room. He tells me that yesterday he was doing better. He did skip his Neurontin yesterday. However, he does note that this medication has made him drowsy and weak and tired. He denies sick contacts, diarrhea, constipation, changes in his urinary habits, cough, or sick contacts. He denies otherwise chills, chest pains, shortness of breath. He tells me that he sleeps in a recliner and has done so for many years. He always needs to sit upright and gets short of breath when lays flat but this is not new. He tells me that he does have some swelling in his legs but he is unsure if his weight has changed or if the swelling in his legs is new. PAST MEDICAL HISTORY: 1. Cerebrovascular accident (CVA). 2. Diastolic congestive heart failure. 3. Coronary artery disease. 4. Obesity. 5. Chronic kidney disease, stage IV. 6. Gout. 7. Depression. 8. Dyslipidemia. 9. Insulin-dependent diabetes. 10. Obstructive sleep apnea. 11. Spinal stenosis. 12. Polymyalgia rheumatica. 13. Psoriasis. 14. Iron deficiency anemia as well as anemia of chronic renal disease. 15. Gastroesophageal reflux disease. SOCIAL HISTORY: He is a former smoker. Denies alcohol. He lives with his and does have a public health home [place] aide. PAST SURGICAL HISTORY: He has had: 1. Appendectomy. 2. Tonsillectomy. 3. He previously had a fistula of his coccyx. 4. He had a colonoscopy. ALLERGIES: MORPHINE. FAMILY HISTORY: Noncontributory. REVIEW OF SYSTEMS: Negative other than in the history of present illness (HPI). HOME MEDICATIONS: - gabapentin 100 mg three times a day - Toujeo 80 units subcutaneously twice a day - acetaminophen/hydrocodone 5/300 one tablet every six hours as needed for pain - Tylenol Extra Strength 1 gram every four hours as needed for fever - allopurinol 300 mg daily - aspirin 325 mg daily - atorvastatin 40 mg at bedtime - calcitriol 0.25 mcg daily - vitamin D 1000 units daily - cinacalcet 30 mg every two days - citalopram 40 mg at bedtime - docusate 100 mg twice a day - ferrous sulfate 325 mg twice a day - glipizide 10 mg twice a day - lidocaine patch topically daily - magnesium oxide 600 mg twice a day - Nitrostat 0.4 mg sublingually every five minutes as needed for angina - nystatin powder topically twice a day as needed for rash - pantoprazole 40 mg at bedtime - prednisone 20 mg daily - pyridoxine vitamin B6 50 mg daily - Januvia 25 mg daily - torsemide 80 mg twice a day - trazodone 100 mg at bedtime - valacyclovir 1 gram twice a day OBJECTIVE: VITAL SIGNS: Temperature 98.8, pulse 98, respiratory rate 20, blood pressure 116/56, oxygen saturation 92% on two liters. GENERAL: He is a morbidly obese, elderly, man sitting on the edge of the stretcher. He appears fatigued but speaks in complete sentences without any accessory muscle use. He is accompanied by his . HEENT: He has moist mucous membranes. It is difficult to asses for any elevation of central venous pressure (CVP) secondary to his enlarged neck. NEUROLOGIC: Cranial nerves II-XII are grossly intact. CARDIOVASCULAR EXAMINATION: S1, S2, regular. RESPIRATORY EXAMINATION: Actually quite clear. He has some bibasilar rales. ABDOMINAL EXAMINATION: Grossly obese. Bowel sounds are present. The abdomen is soft. EXTREMITIES: He does have 1+ to 2+ edema bilaterally. LABORATORY STUDIES: WBC 14.7, hemoglobin 11.3, hematocrit 37, platelet count is 140. Chemistry panel: Sodium 138, potassium 4.0, chloride 94, bicarbonate 32, BUN 42, creatinine 2.6 and appears to be not far from his baseline. Lactic acid is 3.8, AST 69, ALT 81, alkaline phosphatase 166. A BNP is 141. Lipase is 281. He did have a chest x-ray that revealed left costophrenic angle opacification but this is nonspecific. ASSESSMENT AND PLAN: This is a 72-year-old man with weakness and reportedly a fever times one. PROBLEM LIST: 1. Weakness. Unclear etiology. At the present time, the patient does have significant obesity and is chronically ill. He has frequent hospitalizations. At the present time, he does appear to be in some mild decompensated diastolic congestive heart failure. I will continue his home torsemide and provide him with Zaroxolyn as well. As per the emergency department (ED) staff, he was mildly orthostatic and as such, I will not diurese him more aggressively. His lactic acid is slightly elevated as well. We will recheck this and trend it. My suspicion is for right and left heart failure with pulmonary edema and potentially some hepatic congestion. It is also certainly possible that he has an adverse reaction to the Neurontin which has made him drowsy. We will discontinue this medication and have him work with physical therapy and also check a respiratory polymerase chain reaction (PCR) panel to ensure that there are no other viral infections. He does have a leukocytosis. He is not tachycardic. He is not febrile here and as such, for the time being, I will check a urinalysis (UA) and blood cultures and, for the time being, hold off on antibiotics as there is no clear source of infection. 2. Shingles. He has not had fevers up until this morning. This is six days in history and does appear to be resolving of dermatomal distribution below his right axilla. For the time being, I will continue with Valtrex but I will titrate down his dose for his renal dysfunction and continue with his Lidoderm patch. 3. Elevated liver function tests, unclear etiology. At the present time, we will check a right upper quadrant ultrasound. We will also check hepatitis panel. It may be related to hepatic congestion related to congestive heart failure versus medication adverse effect. We are discontinuing. 4. Obstructive sleep apnea. I recommend continued use of home continuous positive airway pressure (CPAP). 5. Polymyalgia rheumatica. He is on chronic steroids. Should he become hypotensive or appear in distress at all, I would consider stress dose steroids as he may be adrenally insufficient from chronic steroid use. 6. Gout. Continue with allopurinol. 7. Cerebrovascular accident (CVA). Continue with atorvastatin and full dose aspirin. 8. Chronic kidney disease. He does not appear significantly different from his baseline. Monitor closely while undergoing diuresis. Continue with calcitriol and cinacalcet. 9. Depression. Continue citalopram. 10. Type 2 insulin-dependent diabetes. Continue his glipizide and sliding scale insulin while in the hospital. 11. Iron deficiency anemia and anemia of chronic renal disease. Continue his ferrous sulfate. He should likely have an outpatient referral to nephrology if he has not had this already. He may benefit from Aranesp. 12. Hypomagnesemia. Continue with magnesium. 13. Vitamin D deficiency. Continue with supplementation. 14. Insomnia. Continue with trazodone. 15. Gastroesophageal reflux disease. Continue with Protonix. 16. Coronary artery disease. The patient is on aspirin and statin. He is not on a beta magdalena. We will defer to his outpatient providers. 17. Deep vein thrombosis (DVT) prophylaxis. The patient will be on heparin. DISPOSITION: The patient is admitted to the medical/surgical floor to Dr. Frazier's service who will continue following the patient at 7:00 a.m.
[2017-08-02] MEDS ORDERED: metOLazone 2.5 MG TAB PO ONE (18:00)
[2017-08-02] MEDS: ATORVASTATIN 20 MG TAB PO SCH (20:46)
[2017-08-02] MEDS: MAGNESIUM OXIDE 400 MG TAB (MAG-OX) PO SCH (20:46)
[2017-08-02] MEDS: PANTOPRAZOLE 40MG TAB (PROTONIX) PO SCH (20:46)
[2017-08-02] MEDS: DOCUSATE SODIUM 100 MG CAP PO SCH (20:47)
[2017-08-02] MEDS: glipiZIDE 10 MG TAB PO SCH (20:47)
[2017-08-02] MEDS: TORSEMIDE 20 MG TAB PO SCH (20:47)
[2017-08-02] MEDS: traZODone 100 MG TAB PO SCH (20:47)
[2017-08-02] MEDS: FERROUS SULFATE 325MG TAB PO SCH (20:47)
[2017-08-02] MEDS: CitaloPRAM (CeleXA) 20 MG TAB PO SCH (20:47)
[2017-08-02] MEDS: HEPARIN SOD (PORCINE) 5000 UNITS/ML VIAL SC SCH (20:48)
[2017-08-02] MEDS: **NOTE PATIENT COMMENT** MISC XX SCH (21:00)
[2017-08-02 22:00] VITALS: BP 146/77
[2017-08-02] MEDS: NYSTATIN 100,000 UNITS/GM TOPICAL PWD 15 GM TOP PRN (22:22)
[2017-08-03 06:00] VITALS: BP 152/67
--- NOTE | 2017-08-03 06:21 | ECGEPIP ---
Stationary ECG Study [facility] - ED Test Date: 2017-08-02 Pat Name: MOLLY OVALLE Department: Room: - Gender: M Statistician: FILI : 1945 Requested By: TRACEE Peralta Order Number: [id number] Reading MD: Ciaran Melendez Measurements Intervals [place] Rate: 88 P: 9 AL: 132 QRS: -54 QRSD: 124 T: 21 QT: 433 QTc: 526 Interpretive Statements SINUS RHYTHM WITH OCCASIONAL SUPRAVENTRICULAR PREMATURE COMPLEXES RIGHT BUNDLE BRANCH BLOCK LEFT ANTERIOR FASCICULAR BLOCK MODERATE VOLTAGE CRITERIA FOR LVH, CONSIDER NORMAL VARIANT SIMILAR TO 07/13/17 Electronically Signed On 08-03-2017 6:20:49 EDT by Ciaran Melendez
[2017-08-03 07:04] LABS: MEAN CORPUSCULAR HGB CONC 30.2 g/dl (32.0-36.5); MEAN CORPUSCULAR VOLUME 92.9 fl (80.0-96.0); RED CELL DISTRIBUTION WIDTH 17.9 % (11.5-14.5); WHITE BLOOD COUNT 11.4 10^3/uL (4.0-10.0)
[2017-08-03] MEDS: HumaLOG INSULIN (NovoLOG) PER UNIT SC SCH ×4 (07:30→21:40)
[2017-08-03 07:32] LABS: ALBUMIN 2.6 GM/DL (3.2-5.2); ALBUMIN/GLOBULIN RATIO 0.7 (1.00-1.93); BILIRUBIN,TOTAL 0.5 MG/DL (0.2-1.0); CALCIUM LEVEL 7.7 MG/DL (8.8-10.2); CREATININE FOR GFR 2.9 MG/DL (0.70-1.30); GLOMERULAR FILTRATION RATE 22.8 (>42); POTASSIUM SERUM 4.2 MEQ/L (3.5-5.1); TOTAL PROTEIN 6.3 GM/DL (6.4-8.2)
[2017-08-03] MEDS: PYRIDOXINE 50 MG TAB PO SCH (09:14)
[2017-08-03] MEDS: predniSONE 20 MG TAB PO SCH (09:14)
[2017-08-03] MEDS: CALCITRIOL 0.25 MCG CAP (S0169) PO SCH (09:14)
[2017-08-03] MEDS: ASPIRIN 325 MG TAB PO SCH (09:14)
[2017-08-03] MEDS: HEPARIN SOD (PORCINE) 5000 UNITS/ML VIAL SC SCH ×2 (09:14→21:39)
[2017-08-03] MEDS: VITAMIN D 1,000 INTERNATIONAL UNITS TABLET PO SCH (09:15)
[2017-08-03] MEDS: TORSEMIDE 20 MG TAB PO SCH ×2 (09:15→21:36)
[2017-08-03] MEDS: MAGNESIUM OXIDE 400 MG TAB (MAG-OX) PO SCH ×2 (09:15→21:35)
[2017-08-03] MEDS: valACYclovir HCL 500 MG TAB PO SCH (09:15)
[2017-08-03] MEDS: ALLOPURINOL 300 MG TAB PO SCH (09:15)
[2017-08-03] MEDS: PERCOCET 5MG/325MG TAB PO PRN ×3 (09:16→21:39)
[2017-08-03] MEDS: DOCUSATE SODIUM 100 MG CAP PO SCH ×2 (09:16→21:36)
[2017-08-03] MEDS: SITagliptin 50 MG TAB (JANUVIA) PO SCH (09:16)
[2017-08-03] MEDS: glipiZIDE 10 MG TAB PO SCH ×2 (09:16→21:37)
[2017-08-03] MEDS: FERROUS SULFATE 325MG TAB PO SCH ×2 (09:17→21:37)
[2017-08-03] MEDS: LIDOCAINE 5% (LIDODERM) PATCH TOP SCH (09:17)
--- NOTE | 2017-08-03 09:32 | REP ---
Abdominal right upper quadrant ultrasound: The study is technically difficult because of the inability of the patient to hold respiration, limited intercostal scanning windows and difficulty with the the patient assume a decubitus position. There is a negative Rachel's sign to transducer pressure. There are multiple small gallbladder calculi. The gallbladder is incompletely distended. The wall is thickened measuring up to 5.4 mm. This be artifact from under distension or could be evidence for gallbladder wall edema. No pericholecystic fluid.. The intrahepatic and extrahepatic biliary ducts could not be identified because of echogenic hepatic parenchyma suggestive of hepato steatosis obscuring the biliary structures and because of the above enumerated difficulties with scanning. The pancreas is obscured by bowel gas. The right kidney is atrophic measuring 8.6 cm craniocaudad length. There is no right renal hydronephrosis, calculus, mass or cyst. Impression: Nearly nondiagnostic exam. There is cholelithiasis. The gallbladder wall is thickened, nonspecific, artifact from under distension versus gallbladder wall edema. There is no pericholecystic fluid. There is a negative Rachel's sign to transducer pressure. Echogenic hepatic parenchyma suggestive of hepato steatosis or diffuse hepatic cellular disease. Atrophic right kidney. The biliary ducts could not be visualized. Signed by Ubaldo Barnes MD 08/03/2017 09:23 A
--- NOTE | 2017-08-03 12:51 | IPN ---
DATE: 08/03/2017 Raffaele was seen on [facility]. He was admitted with generalized weakness. He has a history of congestive heart failure with preserved ejection fraction and followed closely by [facility] with an office visit on 07/27/2017. He has chronic kidney disease Stage IV. He is followed closely by [facility]. Most recent appointment 06/08/2017. He was admitted after developing generalized weakness. He had been given some gabapentin for right chest wall herpes zoster. He was also placed on Valtrex. He then became weak and was unable to get out of bed. He was drowsy. He was brought to the emergency room. Today, he feels better. He is more alert. He is not short of breath. PHYSICAL EXAMINATION: Blood pressure 156/67. Pulse 89. Respiratory rate 18. 98% oxygen saturation. Alert, conversant, recognizes me immediately on coming into the room. Pleasant conversation. No jugular venous distention. Lungs with decreased breath sounds. Heart regular rate and rhythm. Abdomen obese, nontender, no masses. 1+ peripheral edema, which is his baseline. LABS: Creatinine 2.9. His baseline creatinine is around 2.6-2.8. Sodium 142, potassium 4.2, BUN 49, creatinine 2.9, glucose 105. Initial lactic acid was 3.8. I do not see a followup lactic acid. Hemoglobin 10.6, which is his baseline. White count is down to 11.4. ESR is high at 67 and CRP at 8.0, probably from the zoster. AST is 69. His liver functions are chronically mildly elevated from a fatty liver. Ultrasound of the liver was done and confirmed fatty liver. IMPRESSION: 1. Altered mental status/generalized weakness. I suspect this is probably from his Neurontin. I am going to discontinue this as it has not been shown to be beneficial in preventing post herpetic neuralgia and he has acute herpes zoster and is not in a post herpetic state. Home safety evaluation tomorrow. Hopefully discharge tomorrow. 2. Chronic kidney disease. Creatinine is near his baseline. He is followed by nephrology on a frequent basis for this. 3. Congestive heart failure with preserved ejection fraction. He is followed closely by [facility]. 4. Fatty liver. Liver functions are mildly elevated, probably had a little passive congestion as well or it might have been from the gabapentin. In any case, the gabapentin has been discontinued. 5. Diabetes. Blood sugar is under adequate control on his current regimen. Hopefully, he will be discharged tomorrow and have put in for a home safety evaluation tomorrow.
[2017-08-03 14:00] VITALS: BP 165/74
[2017-08-03] MEDS: NYSTATIN 100,000 UNITS/GM TOPICAL PWD 15 GM TOP PRN (17:13)
[2017-08-03] MEDS: **NOTE PATIENT COMMENT** MISC XX SCH (21:00)
[2017-08-03] MEDS: ATORVASTATIN 20 MG TAB PO SCH (21:37)
[2017-08-03] MEDS: PANTOPRAZOLE 40MG TAB (PROTONIX) PO SCH (21:37)
[2017-08-03] MEDS: CitaloPRAM (CeleXA) 20 MG TAB PO SCH (21:37)
[2017-08-03] MEDS: traZODone 100 MG TAB PO SCH (21:37)
[2017-08-03] MEDS: CEFTAROLINE FOSAMIL 400 MG in D5W 50 ML IV SCH (21:50)
[2017-08-04] MEDS: PERCOCET 5MG/325MG TAB PO PRN ×3 (05:30→22:10)
[2017-08-04 06:00] VITALS: BP_SYST 126; BP_SYST 145; BP_SYST 155; BP_DIAS 55; BP_DIAS 66; BP_DIAS 75
[2017-08-04 06:56] LABS: MEAN CORPUSCULAR HGB CONC 30.2 g/dl (32.0-36.5); MEAN CORPUSCULAR VOLUME 92.9 fl (80.0-96.0); RED CELL DISTRIBUTION WIDTH 18.1 % (11.5-14.5)
[2017-08-04 07:19] LABS: ALBUMIN 2.3 GM/DL (3.2-5.2); ALBUMIN/GLOBULIN RATIO 0.58 (1.00-1.93); BILIRUBIN,TOTAL 0.4 MG/DL (0.2-1.0); CALCIUM LEVEL 7.5 MG/DL (8.8-10.2); CREATININE FOR GFR 2.77 MG/DL (0.70-1.30); GLOMERULAR FILTRATION RATE 24.1 (>42); POTASSIUM SERUM 4.1 MEQ/L (3.5-5.1); TOTAL PROTEIN 6.3 GM/DL (6.4-8.2)
[2017-08-04] MEDS ORDERED: INFLUENZA VIRUS VACCINE HIGH DOSE 0.5 ML SYRINGE (90662) IM ONE (09:00)
[2017-08-04] MEDS ORDERED: CINACALCET 30 MG TAB (SENSIPAR) PO SCH (09:00)
[2017-08-04] MEDS: HEPARIN SOD (PORCINE) 5000 UNITS/ML VIAL SC SCH ×2 (09:36→22:01)
[2017-08-04] MEDS: LIDOCAINE 5% (LIDODERM) PATCH TOP SCH (09:36)
[2017-08-04] MEDS: FERROUS SULFATE 325MG TAB PO SCH ×2 (09:37→22:02)
[2017-08-04] MEDS: ALLOPURINOL 300 MG TAB PO SCH (09:37)
[2017-08-04] MEDS: CALCITRIOL 0.25 MCG CAP (S0169) PO SCH (09:37)
[2017-08-04] MEDS: TORSEMIDE 20 MG TAB PO SCH ×2 (09:37→22:03)
[2017-08-04] MEDS: VITAMIN D 1,000 INTERNATIONAL UNITS TABLET PO SCH (09:37)
[2017-08-04] MEDS: predniSONE 20 MG TAB PO SCH (09:37)
[2017-08-04] MEDS: CEFTAROLINE FOSAMIL 400 MG in D5W 50 ML IV SCH ×2 (09:37→22:00)
[2017-08-04] MEDS: SITagliptin 50 MG TAB (JANUVIA) PO SCH (09:38)
[2017-08-04] MEDS: DOCUSATE SODIUM 100 MG CAP PO SCH ×2 (09:38→22:02)
[2017-08-04] MEDS: valACYclovir HCL 500 MG TAB PO SCH (09:38)
[2017-08-04] MEDS: ASPIRIN 325 MG TAB PO SCH (09:38)
[2017-08-04] MEDS: MAGNESIUM OXIDE 400 MG TAB (MAG-OX) PO SCH ×2 (09:38→22:01)
[2017-08-04] MEDS: HumaLOG INSULIN (NovoLOG) PER UNIT SC SCH ×4 (09:39→22:05)
[2017-08-04] MEDS: glipiZIDE 10 MG TAB PO SCH ×2 (09:39→22:02)
[2017-08-04] MEDS: PYRIDOXINE 50 MG TAB PO SCH (09:42)
[2017-08-04 14:00] VITALS: BP 154/74
--- NOTE | 2017-08-04 14:51 | IPN ---
DATE: 08/04/2017 Raffaele was seen on [facility]. He is having a lot of pain from his herpes zoster. I was going to send him home today but he had a positive blood culture from admission and Gram-positive cocci in cluster, who is growing in one out of two blood cultures. I suspect it was contaminant, but I wanted to get more blood cultures before we made a decision. I had covered him with some ceftaroline last night pending the results of the repeat cultures. No fever. No chills. Overall, besides shingles pain, he is feeling better. PHYSICAL EXAMINATION: 123/55, pulse 83, respiratory rate 16. GENERAL APPEARANCE: He is alert and conversant. He has some crusting of the zoster lesions in the right upper chest and back. LUNGS: Clear. HEART: Regular. ABDOMEN: Soft and nontender. EXTREMITIES: Trace to 1+ peripheral edema. LABORATORY DATA: Hemoglobin is 9.9, creatinine is 2.7. On blood culture has Gram-positive cocci in clusters. A second blood culture is negative. IMPRESSION: 1. Positive blood culture, probably contaminant. Repeat blood culture is pending. Cover with ceftaroline pending results of these, 400 mg IV every 12 hours. 2. Diabetes. He is on his Januvia, glipizide and sliding scale of insulin. His blood sugars are elevated. He uses Toujeo 80 units subcutaneously twice a day at home. I will started some basal insulin here. 3. Chronic steroid therapy at home. Prednisone 20 mg daily. 4. Polymyalgia rheumatica. On chronic steroid therapy. 5. Herpes zoster. Continue Valtrex and Lidoderm patch. If blood cultures look like they are negative tomorrow, I think that he probably could be able to be discharged.
[2017-08-04 22:00] VITALS: BP 121/58
[2017-08-04] MEDS: CitaloPRAM (CeleXA) 20 MG TAB PO SCH (22:01)
[2017-08-04] MEDS: ATORVASTATIN 20 MG TAB PO SCH (22:02)
[2017-08-04] MEDS: traZODone 100 MG TAB PO SCH (22:02)
[2017-08-04] MEDS: PANTOPRAZOLE 40MG TAB (PROTONIX) PO SCH (22:02)
[2017-08-04] MEDS: LEVEMIR (INSULIN DETEMIR) 1 UNITS/0.01ML SC SCH (22:04)
[2017-08-04] MEDS: **NOTE PATIENT COMMENT** MISC XX SCH (22:05)
[2017-08-05] MEDS: PERCOCET 5MG/325MG TAB PO PRN ×2 (02:19→06:42)
[2017-08-05 06:00] VITALS: BP 128/58
[2017-08-05 07:11] LABS: MEAN CORPUSCULAR HGB CONC 30.2 g/dl (32.0-36.5); MEAN CORPUSCULAR VOLUME 92.7 fl (80.0-96.0); RED CELL DISTRIBUTION WIDTH 17.5 % (11.5-14.5); WHITE BLOOD COUNT 8.4 10^3/uL (4.0-10.0)
[2017-08-05 07:34] LABS: ALBUMIN 2.4 GM/DL (3.2-5.2); ALBUMIN/GLOBULIN RATIO 0.59 (1.00-1.93); BILIRUBIN,TOTAL 0.4 MG/DL (0.2-1.0); CALCIUM LEVEL 7.8 MG/DL (8.8-10.2); CREATININE FOR GFR 2.62 MG/DL (0.70-1.30); GLOMERULAR FILTRATION RATE 25.7 (>42); POTASSIUM SERUM 3.9 MEQ/L (3.5-5.1); TOTAL PROTEIN 6.5 GM/DL (6.4-8.2)
[2017-08-05] MEDS: CEFTAROLINE FOSAMIL 400 MG in D5W 50 ML IV SCH (09:24)
[2017-08-05] MEDS: HumaLOG INSULIN (NovoLOG) PER UNIT SC SCH (09:25)
[2017-08-05] MEDS: LEVEMIR (INSULIN DETEMIR) 1 UNITS/0.01ML SC SCH (09:25)
[2017-08-05] MEDS: HEPARIN SOD (PORCINE) 5000 UNITS/ML VIAL SC SCH (09:25)
[2017-08-05] MEDS: FERROUS SULFATE 325MG TAB PO SCH (09:26)
[2017-08-05] MEDS: LIDOCAINE 5% (LIDODERM) PATCH TOP SCH (09:26)
[2017-08-05] MEDS: SITagliptin 50 MG TAB (JANUVIA) PO SCH (09:26)
[2017-08-05] MEDS: valACYclovir HCL 500 MG TAB PO SCH (09:26)
[2017-08-05] MEDS: VITAMIN D 1,000 INTERNATIONAL UNITS TABLET PO SCH (09:27)
[2017-08-05] MEDS: glipiZIDE 10 MG TAB PO SCH (09:27)
[2017-08-05] MEDS: MAGNESIUM OXIDE 400 MG TAB (MAG-OX) PO SCH (09:27)
[2017-08-05] MEDS: ASPIRIN 325 MG TAB PO SCH (09:27)
[2017-08-05] MEDS: TORSEMIDE 20 MG TAB PO SCH (09:27)
[2017-08-05] MEDS: ALLOPURINOL 300 MG TAB PO SCH (09:27)
[2017-08-05] MEDS: predniSONE 20 MG TAB PO SCH (09:27)
[2017-08-05] MEDS: DOCUSATE SODIUM 100 MG CAP PO SCH (09:27)
[2017-08-05] MEDS: PYRIDOXINE 50 MG TAB PO SCH (09:34)
[2017-08-05] MEDS: CALCITRIOL 0.25 MCG CAP (S0169) PO SCH (09:34)
--- NOTE | 2017-09-01 17:02 | DSES ---
DATE OF ADMISSION: 08/02/2017 DATE OF DISCHARGE: 08/05/2017 BRIEF HISTORY AND PHYSICAL: The patient is a 72-year-old recently admitted for decompensated diastolic congestive heart failure who returned feeling weak, fever reported to be 101 in the morning, recently diagnosed with shingles on 07/27/2017, started on a Lidoderm patch as well as Neurontin 100 mg three times a day and Valtrex 1 gram twice a day. He has had some improvement in the dermatomal rash and the pain is slightly improved. However, this morning, he felt too weak to be able to get out of bed. He held the Neurontin and felt a little bit better, noting that that medication does make him drowsy and tired. PAST MEDICAL HISTORY: Significant for: 1. Cerebrovascular accident (CVA). 2. Diastolic heart failure. 3. Coronary artery disease. 4. Obesity. 5. Chronic kidney disease, stage IV. 6. Gout. 7. Depression. 8. Dyslipidemia. 9. Insulin-dependent diabetes. 10. Obstructive sleep apnea. 11. Spinal stenosis. 12. Polymyalgia rheumatica. 13. Psoriasis. 14. Iron deficiency anemia as well as anemia of chronic renal disease. 15. Gastroesophageal reflux disease. 16. Recent shingles. PERTINENT LABORATORY DATA ON ADMISSION: White count 14.7, hemoglobin 11.3, platelets 140,000. Sodium 138, potassium 4, BUN 42, creatinine 2.6 which is similar to his baseline, lactic acid 3.8. Chest x-ray showed left costophrenic angle opacification but nonspecific. HOSPITAL COURSE: 1. The patient was admitted for generalized weakness with mild orthostasis and elevated lactic acid level. This was felt most primarily to be related to his Neurontin and that this was causing him to be generally weak and sedated. This was held and his strength improved as well as his weakness. He was ambulating with physical therapy and determined to be safe for discharge on the day prior to his discharge and discharged home. 2. Positive blood culture. On 08/02/2017, he had a blood culture growing Staphylococcus epidermitis. The other blood culture was negative. He had two further followup blood cultures which were negative and the original Staphylococcus epidermitis was felt to be a skin contaminant. He has no other signs of an infectious process. He was covered empirically with ceftaroline for a day until the cultures came back and otherwise did not require any further antibiotics. DISPOSITION: He was stable for discharge home to followup with his primary care provider (PCP) in a week. DISCHARGE MEDICATIONS: - Tylenol 1000 mg every four hours as needed for fever - hydrocodone one tablet every six hours as needed for pain - allopurinol 300 mg daily - aspirin 325 mg daily - atorvastatin 40 mg at bedtime - calcitriol 0.25 mcg daily - vitamin D 1000 international units daily - Sensipar 30 mg every two days - citalopram 40 mg at bedtime - Colace 100 mg twice a day - iron sulfate 325 mg daily - glipizide 10 mg twice a day - Lidoderm patch daily - magnesium 600 mg twice a day - Nystatin one dose topically twice a day as needed for rash - pantoprazole 40 mg at bedtime - prednisone 20 mg daily - pyridoxine 50 mg daily - Januvia 25 mg daily - torsemide 80 mg twice a day - Toujeo 80 units twice a day - trazodone 100 mg at bedtime - valacyclovir 1 gram twice a day His gabapentin was discontinued. DISCHARGE DIAGNOSES: 1. Generalized weakness and altered mental status secondary to gabapentin, resolved. 2. Positive blood culture secondary to skin contamination. 3. Diabetes, type 2, insulin requiring. 4. Chronic diastolic congestive heart failure. 5. Chronic steroid therapy. 6. Polymyalgia rheumatica.
== END 2017-08-05 13:56 | disposition home health service (06) | DRG 292 ==
LOC: M ED 11:41 → EDBD 11:41 → M ED INP 16:52 → M MS5PR 18:55
PROVIDERS: ADMIT Internal Medicine; ATTEND Family Medicine
DX: I50.33 Acute on chronic diastolic (congestive) heart failure (principal); N18.4 Chronic kidney disease, stage 4 (severe); B02.9 Zoster without complications; I25.10 Atherosclerotic heart disease of native coronary artery without angina pectoris; E66.9 Obesity, unspecified; M35.3 Polymyalgia rheumatica; M10.9 Gout, unspecified; E11.22 Type 2 diabetes mellitus with diabetic chronic kidney disease; F32.9 Major depressive disorder, single episode, unspecified; E78.5 Hyperlipidemia, unspecified; G47.00 Insomnia, unspecified; D63.1 Anemia in chronic kidney disease; D50.9 Iron deficiency anemia, unspecified; K21.9 Gastro-esophageal reflux disease without esophagitis; Z88.5 Allergy status to narcotic agent; Z79.4 Long term (current) use of insulin; Z79.52 Long term (current) use of systemic steroids; Z79.899 Other long term (current) drug therapy; Z86.73 Personal history of transient ischemic attack (TIA), and cerebral infarction without residual deficits; Z99.89 Dependence on other enabling machines and devices

== ENCOUNTER → 2017-09-26 | Outpatient (REF) | payer MEDICARE, MEDICAID ==
[~2017-09-26] MED LIST changes: +DOCU100C16 PO; +GABA-279 PO; +HYDR-2808 PO; +LIDO1PAD TOP; +TYLE500T78 PO; +VALA1TAB2 PO; +ZYLO300T4 PO
== END ==
LOC: M SFHCPLAZ 13:19
PROVIDERS: ATTEND Family Medicine
DX: E11.65 Type 2 diabetes mellitus with hyperglycemia (principal)

== ENCOUNTER → 2017-10-05 | Outpatient (REF) | payer MEDICARE, MEDICAID | LOC: M SFHCLERA 12:09 | PROVIDERS: ATTEND Dermatology | DX: L98.9 Disorder of the skin and subcutaneous tissue, unspecified (principal) ==

== ENCOUNTER → 2017-12-22 | Outpatient (CLI) | payer MEDICARE, MEDICAID ==
[2017-12-22 18:24] LABS: BASO % 0.1 % (0.0-1.0); EOS % 0.1 % (0.0-3.0); HEMATOCRIT 36.7 % (42.0-52.0); HEMOGLOBIN 10.8 g/dl (14.0-18.0); IMMATURE GRANULOCYTE % 1.5 % (0-3.0); LYMPH % 6.7 % (24.0-44.0); MEAN CORPUSCULAR HEMOGLOBIN 28.5 pg (27.0-33.0); MEAN CORPUSCULAR HGB CONC 29.4 g/dl (32.0-36.5); MEAN CORPUSCULAR VOLUME 96.8 fl (80.0-96.0); MONO # 0.6 10^3/uL (0.0-0.8); NEUTROPHILS # 12.5 10^3/uL (1.8-7.7); NEUTROPHILS % 87.6 % (36.0-66.0); PLATELET COUNT, AUTOMATED 141 10^3/uL (150-450); RED BLOOD COUNT 3.79 10^6/uL (4.30-6.10); RED CELL DISTRIBUTION WIDTH 17.2 % (11.5-14.5); WHITE BLOOD COUNT 14.3 10^3/uL (4.0-10.0)
[2017-12-22 18:48] LABS: ALBUMIN 2.9 GM/DL (3.2-5.2); ALBUMIN/GLOBULIN RATIO 0.85 (1.00-1.93); ALKALINE PHOSPHATASE 162 U/L (45-117); ALT/SGPT 80 U/L (12-78); ANION GAP 12 MEQ/L (8-16); AST/SGOT 61 U/L (7-37); BILIRUBIN,TOTAL 0.5 MG/DL (0.2-1.0); BLOOD UREA NITROGEN 76 MG/DL (7-18); C REACTIVE PROTEIN QUANTITATIV 6.18 MG/DL (0.00-0.30); CALCIUM LEVEL 8.2 MG/DL (8.8-10.2); CARBON DIOXIDE LEVEL 30 MEQ/L (21-32); CHLORIDE LEVEL 99 MEQ/L (98-107); CREATININE FOR GFR 2.63 MG/DL (0.70-1.30); GLOMERULAR FILTRATION RATE 25.5 (>42); GLUCOSE, FASTING 209 MG/DL (70-100); POTASSIUM SERUM 4.5 MEQ/L (3.5-5.1); SODIUM LEVEL 141 MEQ/L (136-145); TOTAL PROTEIN 6.3 GM/DL (6.4-8.2)
[2017-12-22 19:07] LABS: ERYTHROCYTE SEDIMENTATION RATE 89 mm/hr (0-20)
[2017-12-22 19:09] LABS: ESTIMATED AVERAGE GLUCOSE 200 MG/DL (60-110); HEMOGLOBIN A1c 8.6 %
== END ==
LOC: M SMT 14:08
DX: M35.3 Polymyalgia rheumatica (principal); N18.4 Chronic kidney disease, stage 4 (severe); E11.65 Type 2 diabetes mellitus with hyperglycemia
CPT/HCPCS: 80053

== ENCOUNTER → 2018-01-03 | Outpatient (REF) | payer MEDICARE, MEDICAID | LOC: M SFHCLERA 11:55 | DX: C44.319 Basal cell carcinoma of skin of other parts of face (principal) | CPT/HCPCS: 88305 ==

== ENCOUNTER 2018-01-05 23:06 | Inpatient (IN) | payer MEDICARE, MEDICAID ==
[2018-01-05] MEDS: PANTOPRAZOLE 40MG TAB (PROTONIX) PO (21:00)
[2018-01-05] MEDS: ATORVASTATIN 20 MG TAB PO (21:00)
[2018-01-05] MEDS: CitaloPRAM (CeleXA) 20 MG TAB PO (21:00)
[2018-01-05] MEDS: traZODone 100 MG TAB PO (21:00)
[2018-01-05] MEDS: PYRIDOXINE 50 MG TAB PO (21:00)
[2018-01-06 00:26] LABS: BASO % 0.2 % (0.0-1.0); EOS # 0.1 10^3/uL (0.0-0.50); EOS % 0.5 % (0.0-3.0); HEMATOCRIT 33.7 % (42.0-52.0); HEMOGLOBIN 10.4 g/dl (14.0-18.0); IMMATURE GRANULOCYTE % 1.3 % (0-3.0); LYMPH # 1.2 10^3/uL (1.5-4.5); LYMPH % 7.6 % (24.0-44.0); MEAN CORPUSCULAR HEMOGLOBIN 28.4 pg (27.0-33.0); MEAN CORPUSCULAR HGB CONC 30.9 g/dl (32.0-36.5); MEAN CORPUSCULAR VOLUME 92.1 fl (80.0-96.0); MONO # 0.9 10^3/uL (0.0-0.8); MONO % 5.6 % (0.0-5.0); NEUTROPHILS # 13.2 10^3/uL (1.8-7.7); NEUTROPHILS % 84.8 % (36.0-66.0); PLATELET COUNT, AUTOMATED 162 10^3/uL (150-450); RED BLOOD COUNT 3.66 10^6/uL (4.30-6.10); RED CELL DISTRIBUTION WIDTH 16.2 % (11.5-14.5); WHITE BLOOD COUNT 15.6 10^3/uL (4.0-10.0)
[2018-01-06] MEDS: IPRATROPIUM 0.5MG/ALBUTEROL 2.5MG INH SOL UD 3ML (DUONEB)(J7620) NEB (00:27)
[2018-01-06 00:37] LABS: VENOUS BASE EXCESS 7.5 (-2.0-2.0); VENOUS HCO3 33.5 MEQ/L (23.0-27.0); VENOUS O2 SATURATION 71.4 % (60.0-80.0); VENOUS PARTIAL PRESSURE CO2 55.1 mmHg (38.0-50.0); VENOUS PH 7.402 UNITS (7.330-7.430); VENOUS STANDARD HCO3 30.7 MEQ/L; VENOUS TOTAL CO2 35.2 MEQ/L (24.0-28.0)
[2018-01-06 00:39] LABS: ANION GAP 10 MEQ/L (8-16); BLOOD UREA NITROGEN 133 MG/DL (7-18); CALCIUM LEVEL 8.2 MG/DL (8.8-10.2); CARBON DIOXIDE LEVEL 36 MEQ/L (21-32); CHLORIDE LEVEL 94 MEQ/L (98-107); CPK CREATINE PHOSPHOKINASE 36 U/L (39-308); CREATININE FOR GFR 3.32 MG/DL (0.70-1.30); GLOMERULAR FILTRATION RATE 19.5 (>42); GLUCOSE, FASTING 241 MG/DL (70-100); MB/CK RELATIVE INDEX 2.77 (< OR =4); POTASSIUM SERUM 3.2 MEQ/L (3.5-5.1); SODIUM LEVEL 140 MEQ/L (136-145); TROPONIN I 0.02 NG/ML (< 0.10)
[2018-01-06 00:40] LABS: NT-PRO BNP 1320 PG/ML (<125)
[2018-01-06 00:58] LABS: LACTIC ACID SEPSIS PROTOCOL 1.6 MMOL/L (0.4-2.0)
[2018-01-06] MEDS: CEFTRIAXONE SOD 1 GM in APPROPRIATE DILUENT 1 EA IV (02:19)
[2018-01-06] MEDS ORDERED: ALBUTEROL SULFATE 2.5 MG/0.5 ML INH NEB SOLN NEB (02:30)
[2018-01-06] MEDS ORDERED: NITROGLYCERIN 0.4 MG SUBL TABLET SL (02:45)
[2018-01-06] MEDS ORDERED: ACETAMINOPHEN 500 MG TAB PO ×2 (02:45→03:30)
[2018-01-06] MEDS: NS 1,000 ML IV ×2 (03:37→18:24)
[2018-01-06] MEDS: AZITHROMYCIN INJ 500 MG, VIAL MATE ADAPTER 1 EACH in D5W 250 ML IV (03:41)
[2018-01-06] MEDS: KCL 10MEQ/100ML SWI (KRUN) 100 ML IV (04:17)
[2018-01-06] MEDS ORDERED: PILL CUTTER/CRUSHER XX (04:30)
[2018-01-06] MEDS: HEPARIN SOD (PORCINE) 5000 UNITS/ML VIAL SC ×3 (05:10→20:51)
[2018-01-06] MEDS ORDERED: TORSEMIDE 100 MG TAB PO (09:00)
[2018-01-06] MEDS ORDERED: metOLazone 2.5 MG TAB PO (09:00)
[2018-01-06] MEDS ORDERED: ENTER DRUG NAME HERE (PATIENT'S OWN MED) SC (09:00)
[2018-01-06] MEDS: CHLORHEXIDINE ORAL RINSE 0.12%/15ML 120ML BOTTLE SSP ×4 (09:08→22:37)
[2018-01-06] MEDS: LEVEMIR (INSULIN DETEMIR) 1 UNITS/0.01ML SC ×2 (09:09→22:36)
[2018-01-06] MEDS: HumaLOG INSULIN (NovoLOG) PER UNIT SC ×4 (09:09→22:37)
[2018-01-06] MEDS: DOCUSATE SODIUM 100 MG CAP PO ×2 (09:10→20:52)
[2018-01-06] MEDS: CALCITRIOL 0.25 MCG CAP (S0169) PO (09:10)
[2018-01-06] MEDS: VITAMIN D 1,000 INTERNATIONAL UNITS TABLET PO (09:10)
[2018-01-06] MEDS: ASPIRIN 325 MG TAB PO (09:10)
[2018-01-06] MEDS: CINACALCET 30 MG TAB (SENSIPAR) PO (09:10)
[2018-01-06] MEDS: MAGNESIUM OXIDE 400 MG TAB (MAG-OX) PO ×2 (09:10→20:52)
[2018-01-06] MEDS: ALLOPURINOL 300 MG TAB PO (09:10)
[2018-01-06] MEDS: GABAPENTIN 100 MG CAP PO ×2 (09:11→20:52)
[2018-01-06] MEDS: predniSONE 20 MG TAB PO (09:11)
[2018-01-06] MEDS: SITagliptin 50 MG TAB (JANUVIA) PO (09:11)
[2018-01-06] MEDS: FERROUS SULFATE 325MG TAB PO ×2 (09:11→20:51)
[2018-01-06 10:57] LABS: FERRITIN 74 NG/ML (26-388); IRON (FE) 25 UG/DL (65-175); TOTAL IRON BINDING CAPACITY 279 UG/DL (250-450); URIC ACID 7.4 MG/DL (3.5-7.2)
[2018-01-06] MEDS: POTASSIUM CHLORIDE 10 MEQ SR TABLET PO (11:39)
[2018-01-06 12:16] LABS: BEDSIDE GLUCOSE 211 MG/DL (83-110)
[2018-01-06 12:26] LABS: ALBUMIN 2.7 GM/DL (3.2-5.2); ANION GAP 11 MEQ/L (8-16); BLOOD UREA NITROGEN 127 MG/DL (7-18); CALCIUM LEVEL 7.1 MG/DL (8.8-10.2); CARBON DIOXIDE LEVEL 33 MEQ/L (21-32); CHLORIDE LEVEL 97 MEQ/L (98-107); CREATININE FOR GFR 3.42 MG/DL (0.70-1.30); GLOMERULAR FILTRATION RATE 18.9 (>42); GLUCOSE, FASTING 201 MG/DL (70-100); PHOSPHORUS LEVEL 4.7 MG/DL (2.5-4.9); POTASSIUM SERUM 3.2 MEQ/L (3.5-5.1); SODIUM LEVEL 141 MEQ/L (136-145)
[2018-01-06 12:48] LABS: APPEARANCE, URINE CLEAR (CLEAR); BACTERIA, URINE AUTO NEGATIVE (NEGATIVE); BILIRUBIN, URINE AUTO NEGATIVE (NEGATIVE); BLOOD, URINE BLOOD 1+ (NEGATIVE); COLOR, URINE YELLOW (YELLOW); GLUCOSE, URINE (UA) AUTO NEGATIVE (NEGATIVE); KETONE, URINE AUTO NEGATIVE (NEGATIVE); LEUKOCYTE ESTERASE, URINE AUTO NEGATIVE (NEGATIVE); NITRITE, URINE AUTO NEGATIVE (NEGATIVE); PROTEIN, URINE AUTO NEGATIVE (NEGATIVE); RBC, URINE AUTO 1 /HPF (0-3); SPECIFIC GRAVITY URINE AUTO 1.009 (1.002-1.035); SQUAMOUS EPITHELIAL CELL UR AU 0 /HPF (0-6); UROBILINOGEN, URINE AUTO 0.2 mg/dL (0.0-2.0); WBC, URINE AUTO 0 /HPF (0-3)
[2018-01-06] MEDS: DOXYCYCLINE HYCLATE 100 MG TAB PO (20:51)
[2018-01-06] MEDS: ATORVASTATIN 20 MG TAB PO (20:51)
[2018-01-06] MEDS: PANTOPRAZOLE 40MG TAB (PROTONIX) PO (20:51)
[2018-01-06] MEDS: traZODone 100 MG TAB PO (20:52)
[2018-01-06] MEDS: PYRIDOXINE 50 MG TAB PO (20:52)
[2018-01-06] MEDS: CitaloPRAM (CeleXA) 20 MG TAB PO (20:52)
[2018-01-06 22:06] LABS: BEDSIDE GLUCOSE 245 MG/DL (83-110)
[2018-01-06 22:06] LABS: BEDSIDE GLUCOSE 292 MG/DL (83-110)
[2018-01-06 22:06] LABS: BEDSIDE GLUCOSE 195 MG/DL (83-110)
[2018-01-06] MEDS: LOTEMAX OU (22:39)
[2018-01-07] MEDS: CEFTRIAXONE SOD 2 GM in APPROPRIATE DILUENT 1 EA IV (00:58)
[2018-01-07 06:12] LABS: HEMATOCRIT 30.5 % (42.0-52.0); HEMOGLOBIN 9.2 g/dl (14.0-18.0); MEAN CORPUSCULAR HGB CONC 30.2 g/dl (32.0-36.5); MEAN CORPUSCULAR VOLUME 92.7 fl (80.0-96.0); PLATELET COUNT, AUTOMATED 125 10^3/uL (150-450); RED BLOOD COUNT 3.29 10^6/uL (4.30-6.10); RED CELL DISTRIBUTION WIDTH 16.2 % (11.5-14.5); WHITE BLOOD COUNT 10.7 10^3/uL (4.0-10.0)
[2018-01-07] MEDS: HEPARIN SOD (PORCINE) 5000 UNITS/ML VIAL SC ×3 (06:13→20:44)
[2018-01-07 06:43] LABS: ANION GAP 8 MEQ/L (8-16); BLOOD UREA NITROGEN 127 MG/DL (7-18); CALCIUM LEVEL 7.6 MG/DL (8.8-10.2); CARBON DIOXIDE LEVEL 36 MEQ/L (21-32); CHLORIDE LEVEL 99 MEQ/L (98-107); CREATININE FOR GFR 3.24 MG/DL (0.70-1.30); GLOMERULAR FILTRATION RATE 20.1 (>42); GLUCOSE, FASTING 118 MG/DL (70-100); POTASSIUM SERUM 3.2 MEQ/L (3.5-5.1); SODIUM LEVEL 143 MEQ/L (136-145)
[2018-01-07] MEDS: NS 1,000 ML IV (07:25)
[2018-01-07] MEDS: HumaLOG INSULIN (NovoLOG) PER UNIT SC ×4 (08:02→20:32)
[2018-01-07] MEDS: CHLORHEXIDINE ORAL RINSE 0.12%/15ML 120ML BOTTLE SSP ×4 (09:00→20:34)
[2018-01-07] MEDS: LEVEMIR (INSULIN DETEMIR) 1 UNITS/0.01ML SC ×2 (11:04→20:44)
[2018-01-07] MEDS: GABAPENTIN 100 MG CAP PO ×2 (11:04→20:33)
[2018-01-07] MEDS: DOXYCYCLINE HYCLATE 100 MG TAB PO ×2 (11:05→20:32)
[2018-01-07] MEDS: DOCUSATE SODIUM 100 MG CAP PO ×2 (11:05→20:32)
[2018-01-07] MEDS: FERROUS SULFATE 325MG TAB PO ×2 (11:05→20:32)
[2018-01-07] MEDS: ASPIRIN 325 MG TAB PO (11:05)
[2018-01-07] MEDS: SITagliptin 50 MG TAB (JANUVIA) PO (11:05)
[2018-01-07] MEDS: CALCITRIOL 0.25 MCG CAP (S0169) PO (11:06)
[2018-01-07] MEDS: ALLOPURINOL 300 MG TAB PO (11:06)
[2018-01-07] MEDS: VITAMIN D 1,000 INTERNATIONAL UNITS TABLET PO (11:06)
[2018-01-07] MEDS: MAGNESIUM OXIDE 400 MG TAB (MAG-OX) PO ×2 (11:06→20:33)
[2018-01-07] MEDS: AQUAPHOR **100GM** OINT TOP (11:07)
[2018-01-07] MEDS: predniSONE 20 MG TAB PO (11:07)
[2018-01-07] MEDS: LOTEMAX OU ×3 (11:08→20:35)
[2018-01-07] MEDS: POTASSIUM CHLORIDE 10 MEQ SR TABLET PO ×2 (17:16→20:34)
[2018-01-07 20:01] LABS: BEDSIDE GLUCOSE 126 MG/DL (83-110)
[2018-01-07 20:02] LABS: BEDSIDE GLUCOSE 355 MG/DL (83-110)
[2018-01-07 20:02] LABS: BEDSIDE GLUCOSE 406 MG/DL (83-110)
[2018-01-07] MEDS: CitaloPRAM (CeleXA) 20 MG TAB PO (20:32)
[2018-01-07] MEDS: PYRIDOXINE 50 MG TAB PO (20:33)
[2018-01-07] MEDS: ATORVASTATIN 20 MG TAB PO (20:33)
[2018-01-07] MEDS: PANTOPRAZOLE 40MG TAB (PROTONIX) PO (20:33)
[2018-01-07] MEDS: traZODone 100 MG TAB PO (20:33)
[2018-01-07 23:02] LABS: BEDSIDE GLUCOSE 388 MG/DL (83-110)
[2018-01-08] MEDS: CEFTRIAXONE SOD 2 GM in APPROPRIATE DILUENT 1 EA IV (00:10)
[2018-01-08] MEDS: HEPARIN SOD (PORCINE) 5000 UNITS/ML VIAL SC ×3 (05:10→22:34)
[2018-01-08 06:30] LABS: HEMATOCRIT 27.9 % (42.0-52.0); HEMOGLOBIN 8.6 g/dl (14.0-18.0); MEAN CORPUSCULAR HEMOGLOBIN 29.1 pg (27.0-33.0); MEAN CORPUSCULAR HGB CONC 30.8 g/dl (32.0-36.5); MEAN CORPUSCULAR VOLUME 94.3 fl (80.0-96.0); PLATELET COUNT, AUTOMATED 116 10^3/uL (150-450); RED BLOOD COUNT 2.96 10^6/uL (4.30-6.10); RED CELL DISTRIBUTION WIDTH 15.9 % (11.5-14.5); WHITE BLOOD COUNT 11.4 10^3/uL (4.0-10.0)
[2018-01-08 06:45] LABS: ANION GAP 6 MEQ/L (8-16); BLOOD UREA NITROGEN 107 MG/DL (7-18); CALCIUM LEVEL 7.7 MG/DL (8.8-10.2); CARBON DIOXIDE LEVEL 34 MEQ/L (21-32); CHLORIDE LEVEL 102 MEQ/L (98-107); CREATININE FOR GFR 2.83 MG/DL (0.70-1.30); GLOMERULAR FILTRATION RATE 23.5 (>42); GLUCOSE, FASTING 290 MG/DL (70-100); POTASSIUM SERUM 4.1 MEQ/L (3.5-5.1); SODIUM LEVEL 142 MEQ/L (136-145)
[2018-01-08] MEDS: GABAPENTIN 100 MG CAP PO ×2 (07:55→22:30)
[2018-01-08] MEDS: CINACALCET 30 MG TAB (SENSIPAR) PO (07:55)
[2018-01-08] MEDS: CALCITRIOL 0.25 MCG CAP (S0169) PO (07:56)
[2018-01-08] MEDS: ASPIRIN 325 MG TAB PO (07:56)
[2018-01-08] MEDS: FERROUS SULFATE 325MG TAB PO ×2 (07:56→22:31)
[2018-01-08] MEDS: POTASSIUM CHLORIDE 10 MEQ SR TABLET PO ×3 (07:56→22:29)
[2018-01-08] MEDS: predniSONE 20 MG TAB PO (07:56)
[2018-01-08] MEDS: VITAMIN D 1,000 INTERNATIONAL UNITS TABLET PO (07:57)
[2018-01-08] MEDS: MAGNESIUM OXIDE 400 MG TAB (MAG-OX) PO ×2 (07:58→22:32)
[2018-01-08] MEDS: SITagliptin 50 MG TAB (JANUVIA) PO (07:58)
[2018-01-08] MEDS: ALLOPURINOL 300 MG TAB PO (07:58)
[2018-01-08] MEDS: HumaLOG INSULIN (NovoLOG) PER UNIT SC ×4 (07:59→22:33)
[2018-01-08] MEDS: DOXYCYCLINE HYCLATE 100 MG TAB PO ×2 (07:59→22:30)
[2018-01-08] MEDS: DOCUSATE SODIUM 100 MG CAP PO ×2 (08:00→22:29)
[2018-01-08] MEDS: LEVEMIR (INSULIN DETEMIR) 1 UNITS/0.01ML SC ×2 (08:00→22:33)
[2018-01-08] MEDS: AQUAPHOR **100GM** OINT TOP (08:01)
[2018-01-08] MEDS: LOTEMAX OU ×3 (08:02→21:00)
[2018-01-08] MEDS: CHLORHEXIDINE ORAL RINSE 0.12%/15ML 120ML BOTTLE SSP ×4 (08:02→22:32)
[2018-01-08 12:20] LABS: BEDSIDE GLUCOSE 275 MG/DL (83-110)
[2018-01-08 13:45] LABS: IRON (FE) 36 UG/DL (65-175); PERCENT SATURATION 15.3 % (19.7-50.0); TOTAL IRON BINDING CAPACITY 235 UG/DL (250-450)
[2018-01-08] MEDS: TORSEMIDE 20 MG TAB PO (17:21)
[2018-01-08 17:46] LABS: BEDSIDE GLUCOSE 299 MG/DL (83-110)
[2018-01-08] MEDS: SILVER NITRATE APPLICATOR TOP (20:26)
[2018-01-08] MEDS: ACETAMINOPHEN TAB 650MG DOSE (2X325MG) PO (22:30)
[2018-01-08] MEDS: CitaloPRAM (CeleXA) 20 MG TAB PO (22:30)
[2018-01-08] MEDS: traZODone 100 MG TAB PO (22:31)
[2018-01-08] MEDS: ATORVASTATIN 20 MG TAB PO (22:31)
[2018-01-08] MEDS: PANTOPRAZOLE 40MG TAB (PROTONIX) PO (22:31)
[2018-01-08] MEDS: PYRIDOXINE 50 MG TAB PO (22:32)
[2018-01-09] MEDS: CEFTRIAXONE SOD 2 GM in APPROPRIATE DILUENT 1 EA IV (00:28)
[2018-01-09 02:56] LABS: BEDSIDE GLUCOSE 383 MG/DL (83-110)
[2018-01-09] MEDS: ACETAMINOPHEN TAB 650MG DOSE (2X325MG) PO (04:53)
[2018-01-09] MEDS: HEPARIN SOD (PORCINE) 5000 UNITS/ML VIAL SC ×3 (05:23→21:30)
[2018-01-09 06:45] LABS: HEMOGLOBIN 8.5 g/dl (14.0-18.0); MEAN CORPUSCULAR HEMOGLOBIN 28.6 pg (27.0-33.0); MEAN CORPUSCULAR HGB CONC 30.4 g/dl (32.0-36.5); MEAN CORPUSCULAR VOLUME 94.3 fl (80.0-96.0); PLATELET COUNT, AUTOMATED 130 10^3/uL (150-450); RED BLOOD COUNT 2.97 10^6/uL (4.30-6.10); WHITE BLOOD COUNT 10.5 10^3/uL (4.0-10.0)
[2018-01-09 07:08] LABS: ANION GAP 4 MEQ/L (8-16); BLOOD UREA NITROGEN 92 MG/DL (7-18); CALCIUM LEVEL 7.8 MG/DL (8.8-10.2); CARBON DIOXIDE LEVEL 35 MEQ/L (21-32); CHLORIDE LEVEL 104 MEQ/L (98-107); CREATININE FOR GFR 2.76 MG/DL (0.70-1.30); GLOMERULAR FILTRATION RATE 24.2 (>42); GLUCOSE, FASTING 211 MG/DL (70-100); POTASSIUM SERUM 5.1 MEQ/L (3.5-5.1); SODIUM LEVEL 143 MEQ/L (136-145)
[2018-01-09] MEDS: HumaLOG INSULIN (NovoLOG) PER UNIT SC ×4 (08:13→21:29)
[2018-01-09] MEDS: POTASSIUM CHLORIDE 10 MEQ SR TABLET PO (08:14)
[2018-01-09] MEDS: ALLOPURINOL 300 MG TAB PO (09:31)
[2018-01-09] MEDS: SITagliptin 50 MG TAB (JANUVIA) PO (09:32)
[2018-01-09] MEDS: predniSONE 20 MG TAB PO (09:32)
[2018-01-09] MEDS: VITAMIN D 1,000 INTERNATIONAL UNITS TABLET PO (09:33)
[2018-01-09] MEDS: DOCUSATE SODIUM 100 MG CAP PO ×2 (09:33→21:28)
[2018-01-09] MEDS: MAGNESIUM OXIDE 400 MG TAB (MAG-OX) PO ×2 (09:33→21:28)
[2018-01-09] MEDS: CALCITRIOL 0.25 MCG CAP (S0169) PO (09:33)
[2018-01-09] MEDS: DOXYCYCLINE HYCLATE 100 MG TAB PO ×2 (09:33→21:29)
[2018-01-09] MEDS: ASPIRIN 325 MG TAB PO (09:33)
[2018-01-09] MEDS: GABAPENTIN 100 MG CAP PO ×2 (09:33→21:28)
[2018-01-09] MEDS: FERROUS SULFATE 325MG TAB PO ×2 (09:33→21:29)
[2018-01-09] MEDS: LOTEMAX OU ×3 (09:34→21:00)
[2018-01-09] MEDS: LEVEMIR (INSULIN DETEMIR) 1 UNITS/0.01ML SC ×2 (09:34→21:30)
[2018-01-09] MEDS: CHLORHEXIDINE ORAL RINSE 0.12%/15ML 120ML BOTTLE SSP ×4 (09:34→21:00)
[2018-01-09] MEDS: TORSEMIDE 20 MG TAB PO ×2 (09:34→17:36)
[2018-01-09] MEDS: AQUAPHOR **100GM** OINT TOP (09:35)
[2018-01-09] MEDS: NYSTATIN 100,000 UNITS/GM TOPICAL PWD 15 GM TOP (09:35)
[2018-01-09] MEDS: DARBEPOETIN 100 MCG/0.5 ML *NON-DIALYSIS* SYRINGE (J0881) SC (12:12)
[2018-01-09] MEDS: PYRIDOXINE 50 MG TAB PO (21:27)
[2018-01-09] MEDS: CitaloPRAM (CeleXA) 20 MG TAB PO (21:28)
[2018-01-09] MEDS: traZODone 100 MG TAB PO (21:28)
[2018-01-09] MEDS: PANTOPRAZOLE 40MG TAB (PROTONIX) PO (21:28)
[2018-01-09] MEDS: ATORVASTATIN 20 MG TAB PO (21:29)
[2018-01-10] MEDS: CEFTRIAXONE SOD 2 GM in APPROPRIATE DILUENT 1 EA IV (00:16)
[2018-01-10] MEDS: HEPARIN SOD (PORCINE) 5000 UNITS/ML VIAL SC ×3 (06:00→21:10)
[2018-01-10 06:23] LABS: HEMATOCRIT 28.8 % (42.0-52.0); HEMOGLOBIN 8.7 g/dl (14.0-18.0); MEAN CORPUSCULAR HEMOGLOBIN 28.7 pg (27.0-33.0); MEAN CORPUSCULAR HGB CONC 30.2 g/dl (32.0-36.5); PLATELET COUNT, AUTOMATED 136 10^3/uL (150-450); RED BLOOD COUNT 3.03 10^6/uL (4.30-6.10); RED CELL DISTRIBUTION WIDTH 16.1 % (11.5-14.5); WHITE BLOOD COUNT 10.8 10^3/uL (4.0-10.0)
[2018-01-10 06:45] LABS: ANION GAP 5 MEQ/L (8-16); BLOOD UREA NITROGEN 91 MG/DL (7-18); CALCIUM LEVEL 8.1 MG/DL (8.8-10.2); CARBON DIOXIDE LEVEL 38 MEQ/L (21-32); CHLORIDE LEVEL 100 MEQ/L (98-107); CREATININE FOR GFR 2.73 MG/DL (0.70-1.30); GLOMERULAR FILTRATION RATE 24.5 (>42); GLUCOSE, FASTING 123 MG/DL (70-100); POTASSIUM SERUM 4.6 MEQ/L (3.5-5.1); SODIUM LEVEL 143 MEQ/L (136-145)
[2018-01-10] MEDS: LEVEMIR (INSULIN DETEMIR) 1 UNITS/0.01ML SC ×2 (08:05→21:00)
[2018-01-10] MEDS: HumaLOG INSULIN (NovoLOG) PER UNIT SC ×4 (08:05→21:38)
[2018-01-10] MEDS: GABAPENTIN 100 MG CAP PO ×2 (08:06→21:09)
[2018-01-10] MEDS: MAGNESIUM OXIDE 400 MG TAB (MAG-OX) PO ×2 (08:06→21:08)
[2018-01-10] MEDS: VITAMIN D 1,000 INTERNATIONAL UNITS TABLET PO (08:06)
[2018-01-10] MEDS: ASPIRIN 325 MG TAB PO (08:06)
[2018-01-10] MEDS: TORSEMIDE 20 MG TAB PO ×2 (08:06→17:31)
[2018-01-10] MEDS: predniSONE 20 MG TAB PO (08:06)
[2018-01-10] MEDS: DOXYCYCLINE HYCLATE 100 MG TAB PO ×2 (08:07→21:09)
[2018-01-10] MEDS: SITagliptin 50 MG TAB (JANUVIA) PO (08:07)
[2018-01-10] MEDS: FERROUS SULFATE 325MG TAB PO ×2 (08:07→21:07)
[2018-01-10] MEDS: ALLOPURINOL 300 MG TAB PO (08:07)
[2018-01-10] MEDS: DOCUSATE SODIUM 100 MG CAP PO ×2 (08:07→21:07)
[2018-01-10] MEDS: CINACALCET 30 MG TAB (SENSIPAR) PO (08:07)
[2018-01-10] MEDS: CALCITRIOL 0.25 MCG CAP (S0169) PO (08:07)
[2018-01-10] MEDS: LOTEMAX OU ×3 (08:08→21:00)
[2018-01-10] MEDS: CHLORHEXIDINE ORAL RINSE 0.12%/15ML 120ML BOTTLE SSP ×4 (08:08→21:09)
[2018-01-10] MEDS: PYRIDOXINE 50 MG TAB PO (21:07)
[2018-01-10] MEDS: ATORVASTATIN 20 MG TAB PO (21:07)
[2018-01-10] MEDS: CitaloPRAM (CeleXA) 20 MG TAB PO (21:07)
[2018-01-10] MEDS: PANTOPRAZOLE 40MG TAB (PROTONIX) PO (21:08)
[2018-01-10] MEDS: traZODone 100 MG TAB PO (21:09)
[2018-01-11] MEDS: CEFTRIAXONE SOD 2 GM in APPROPRIATE DILUENT 1 EA IV (00:51)
[2018-01-11] MEDS: HEPARIN SOD (PORCINE) 5000 UNITS/ML VIAL SC ×2 (05:45→13:32)
[2018-01-11 07:03] LABS: HEMATOCRIT 28.7 % (42.0-52.0); HEMOGLOBIN 8.7 g/dl (14.0-18.0); MEAN CORPUSCULAR HEMOGLOBIN 28.7 pg (27.0-33.0); MEAN CORPUSCULAR HGB CONC 30.3 g/dl (32.0-36.5); MEAN CORPUSCULAR VOLUME 94.7 fl (80.0-96.0); PLATELET COUNT, AUTOMATED 132 10^3/uL (150-450); RED BLOOD COUNT 3.03 10^6/uL (4.30-6.10); RED CELL DISTRIBUTION WIDTH 16.3 % (11.5-14.5); WHITE BLOOD COUNT 12.2 10^3/uL (4.0-10.0)
[2018-01-11 07:25] LABS: ANION GAP 5 MEQ/L (8-16); BLOOD UREA NITROGEN 85 MG/DL (7-18); CALCIUM LEVEL 8.3 MG/DL (8.8-10.2); CARBON DIOXIDE LEVEL 38 MEQ/L (21-32); CHLORIDE LEVEL 98 MEQ/L (98-107); CREATININE FOR GFR 2.88 MG/DL (0.70-1.30); GLUCOSE, FASTING 110 MG/DL (70-100); SODIUM LEVEL 141 MEQ/L (136-145)
[2018-01-11] MEDS: LEVEMIR (INSULIN DETEMIR) 1 UNITS/0.01ML SC (08:34)
[2018-01-11] MEDS: HumaLOG INSULIN (NovoLOG) PER UNIT SC ×2 (08:34→12:09)
[2018-01-11] MEDS: CALCITRIOL 0.25 MCG CAP (S0169) PO (08:34)
[2018-01-11] MEDS: DOCUSATE SODIUM 100 MG CAP PO (08:34)
[2018-01-11] MEDS: ASPIRIN 325 MG TAB PO (08:34)
[2018-01-11] MEDS: ALLOPURINOL 300 MG TAB PO (08:35)
[2018-01-11] MEDS: MAGNESIUM OXIDE 400 MG TAB (MAG-OX) PO (08:35)
[2018-01-11] MEDS: GABAPENTIN 100 MG CAP PO (08:35)
[2018-01-11] MEDS: TORSEMIDE 20 MG TAB PO (08:35)
[2018-01-11] MEDS: FERROUS SULFATE 325MG TAB PO (08:35)
[2018-01-11] MEDS: DOXYCYCLINE HYCLATE 100 MG TAB PO (08:35)
[2018-01-11] MEDS: SITagliptin 50 MG TAB (JANUVIA) PO (08:36)
[2018-01-11] MEDS: VITAMIN D 1,000 INTERNATIONAL UNITS TABLET PO (08:36)
[2018-01-11] MEDS: predniSONE 20 MG TAB PO (08:36)
[2018-01-11] MEDS: LOTEMAX OU (08:37)
[2018-01-11] MEDS: CHLORHEXIDINE ORAL RINSE 0.12%/15ML 120ML BOTTLE SSP ×2 (08:37→13:00)
[2018-01-11 13:00] LABS: BEDSIDE GLUCOSE 426 MG/DL (83-110)
[2018-01-11 13:00] LABS: BEDSIDE GLUCOSE 223 MG/DL (83-110)
[2018-01-11 13:00] LABS: BEDSIDE GLUCOSE 339 MG/DL (83-110)
[2018-01-11 13:01] LABS: BEDSIDE GLUCOSE 185 MG/DL (83-110)
[2018-01-11 13:01] LABS: BEDSIDE GLUCOSE 336 MG/DL (83-110)
[2018-01-11 13:02] LABS: BEDSIDE GLUCOSE 390 MG/DL (83-110)
[2018-01-11 13:02] LABS: BEDSIDE GLUCOSE 251 MG/DL (83-110)
== END 2018-01-11 15:35 | disposition home or self-care (01) | DRG 193 ==
LOC: M ED 23:06 → M ED INP 01-06 01:42 → M MS5PR 01-06 03:03
DX: J18.9 Pneumonia, unspecified organism (principal); I50.31 Acute diastolic (congestive) heart failure; N18.4 Chronic kidney disease, stage 4 (severe); N17.9 Acute kidney failure, unspecified; N25.81 Secondary hyperparathyroidism of renal origin; E87.6 Hypokalemia; D11.9 Benign neoplasm of major salivary gland, unspecified; M10.9 Gout, unspecified; G47.33 Obstructive sleep apnea (adult) (pediatric); F32.9 Major depressive disorder, single episode, unspecified; Z86.73 Personal history of transient ischemic attack (TIA), and cerebral infarction without residual deficits; Z79.899 Other long term (current) drug therapy; Z79.82 Long term (current) use of aspirin; E66.01 Morbid (severe) obesity due to excess calories; I25.10 Atherosclerotic heart disease of native coronary artery without angina pectoris; E78.5 Hyperlipidemia, unspecified; Z87.891 Personal history of nicotine dependence; L40.8 Other psoriasis; M35.3 Polymyalgia rheumatica; K21.9 Gastro-esophageal reflux disease without esophagitis; Z88.5 Allergy status to narcotic agent; D63.1 Anemia in chronic kidney disease

== ENCOUNTER → 2018-01-17 | Outpatient (CLI) | payer MEDICARE, MEDICAID ==
[2018-01-17 13:52] LABS: BASO % 0.1 % (0.0-1.0); EOS % 0.1 % (0.0-3.0); HEMATOCRIT 32.7 % (42.0-52.0); HEMOGLOBIN 10.2 g/dl (14.0-18.0); IMMATURE GRANULOCYTE % 1.4 % (0-3.0); LYMPH # 1.1 10^3/uL (1.5-4.5); LYMPH % 5.3 % (24.0-44.0); MEAN CORPUSCULAR HEMOGLOBIN 29.4 pg (27.0-33.0); MEAN CORPUSCULAR HGB CONC 31.2 g/dl (32.0-36.5); MEAN CORPUSCULAR VOLUME 94.2 fl (80.0-96.0); MONO % 4.6 % (0.0-5.0); NEUTROPHILS # 18.3 10^3/uL (1.8-7.7); NEUTROPHILS % 88.5 % (36.0-66.0); PLATELET COUNT, AUTOMATED 164 10^3/uL (150-450); RED BLOOD COUNT 3.47 10^6/uL (4.30-6.10); RED CELL DISTRIBUTION WIDTH 17.9 % (11.5-14.5); WHITE BLOOD COUNT 20.6 10^3/uL (4.0-10.0)
[2018-01-17 14:30] LABS: ALBUMIN 3.1 GM/DL (3.2-5.2); ANION GAP 12 MEQ/L (8-16); BLOOD UREA NITROGEN 109 MG/DL (7-18); CALCIUM LEVEL 8.1 MG/DL (8.8-10.2); CARBON DIOXIDE LEVEL 33 MEQ/L (21-32); CHLORIDE LEVEL 91 MEQ/L (98-107); CREATININE FOR GFR 3.74 MG/DL (0.70-1.30); GLUCOSE, FASTING 210 MG/DL (70-100); MAGNESIUM LEVEL 2.5 MG/DL (1.8-2.4); PHOSPHORUS LEVEL 5.5 MG/DL (2.5-4.9); POTASSIUM SERUM 3.8 MEQ/L (3.5-5.1); SODIUM LEVEL 136 MEQ/L (136-145)
== END ==
LOC: M LAB 13:13
DX: N18.4 Chronic kidney disease, stage 4 (severe) (principal); J18.1 Lobar pneumonia, unspecified organism; J98.11 Atelectasis
CPT/HCPCS: 71046

== ENCOUNTER → 2018-01-17 | Outpatient (REF) | payer MEDICARE, MEDICAID | LOC: M SFHCPLAZ 12:32 | DX: N18.4 Chronic kidney disease, stage 4 (severe) (principal); J18.1 Lobar pneumonia, unspecified organism; Z53.20 Procedure and treatment not carried out because of patient's decision for unspecified reasons ==

== ENCOUNTER → 2018-01-18 | Outpatient (REF) | payer MEDICARE, MEDICAID ==
[2018-01-18 16:12] LABS: ALBUMIN 2.9 GM/DL (3.2-5.2); ANION GAP 9 MEQ/L (8-16); BLOOD UREA NITROGEN 104 MG/DL (7-18); CALCIUM LEVEL 7.5 MG/DL (8.8-10.2); CARBON DIOXIDE LEVEL 34 MEQ/L (21-32); CHLORIDE LEVEL 93 MEQ/L (98-107); CREATININE FOR GFR 3.53 MG/DL (0.70-1.30); GLOMERULAR FILTRATION RATE 18.2 (>42); GLUCOSE, FASTING 326 MG/DL (70-100); PHOSPHORUS LEVEL 4.9 MG/DL (2.5-4.9); SODIUM LEVEL 136 MEQ/L (136-145)
== END ==
LOC: M SFHCPLAZ 12:23
DX: N17.9 Acute kidney failure, unspecified (principal)
CPT/HCPCS: 80069

== ENCOUNTER → 2018-01-24 | Outpatient (REF) | payer MEDICARE, MEDICAID | LOC: M SFHCPLAZ 10:37 | DX: N17.9 Acute kidney failure, unspecified (principal); Z53.8 Procedure and treatment not carried out for other reasons ==

== ENCOUNTER → 2018-02-02 | Outpatient (REF) | payer MEDICARE, MEDICAID ==
[2018-02-02 20:03] LABS: ALBUMIN 2.9 GM/DL (3.2-5.2); ANION GAP 8 MEQ/L (8-16); BLOOD UREA NITROGEN 71 MG/DL (7-18); CALCIUM LEVEL 7.7 MG/DL (8.8-10.2); CARBON DIOXIDE LEVEL 33 MEQ/L (21-32); CHLORIDE LEVEL 98 MEQ/L (98-107); CREATININE FOR GFR 2.75 MG/DL (0.70-1.30); GLOMERULAR FILTRATION RATE 24.3 (>42); GLUCOSE, FASTING 317 MG/DL (70-100); PHOSPHORUS LEVEL 4.8 MG/DL (2.5-4.9); POTASSIUM SERUM 4.9 MEQ/L (3.5-5.1); SODIUM LEVEL 139 MEQ/L (136-145)
== END ==
LOC: M SFHCPLAZ 15:21
DX: N17.9 Acute kidney failure, unspecified (principal)
CPT/HCPCS: 80069

== ENCOUNTER 2018-02-07 15:35 | Emergency (ER) | payer MEDICARE, MEDICAID ==
[2018-02-07 16:37] LABS: BASO % 0.1 % (0.0-1.0); EOS % 0.2 % (0.0-3.0); HEMATOCRIT 32.5 % (42.0-52.0); HEMOGLOBIN 9.7 g/dl (13.5-17.5); IMMATURE GRANULOCYTE % 1.6 % (0-3.0); LYMPH # 0.7 10^3/uL (1.5-4.5); LYMPH % 5.9 % (24.0-44.0); MEAN CORPUSCULAR HEMOGLOBIN 28.7 pg (27.0-33.0); MEAN CORPUSCULAR HGB CONC 29.8 g/dl (32.0-36.5); MEAN CORPUSCULAR VOLUME 96.2 fl (80.0-96.0); MONO # 0.5 10^3/uL (0.0-0.8); MONO % 4.6 % (0.0-5.0); NEUTROPHILS # 9.6 10^3/uL (1.8-7.7); NEUTROPHILS % 87.6 % (36.0-66.0); PLATELET COUNT, AUTOMATED 125 10^3/uL (150-450); RED BLOOD COUNT 3.38 10^6/uL (4.30-6.10); RED CELL DISTRIBUTION WIDTH 17.1 % (11.5-14.5)
[2018-02-07 16:53] LABS: INR 0.99; PROTHROMBIN TIME 13.2 SECONDS (12.4-14.5)
[2018-02-07 17:05] LABS: ALBUMIN 2.9 GM/DL (3.2-5.2); ALBUMIN/GLOBULIN RATIO 0.83 (1.00-1.93); ALKALINE PHOSPHATASE 158 U/L (45-117); ALT/SGPT 71 U/L (12-78); ANION GAP 6 MEQ/L (8-16); AST/SGOT 58 U/L (7-37); BILIRUBIN,TOTAL 0.5 MG/DL (0.2-1.0); BLOOD UREA NITROGEN 62 MG/DL (7-18); CALCIUM LEVEL 7.9 MG/DL (8.8-10.2); CARBON DIOXIDE LEVEL 35 MEQ/L (21-32); CHLORIDE LEVEL 99 MEQ/L (98-107); CK-MB VALUE MASS 1.1 NG/ML (<3.6); CPK CREATINE PHOSPHOKINASE 211 U/L (39-308); CREATININE FOR GFR 2.78 MG/DL (0.70-1.30); GLUCOSE, FASTING 209 MG/DL (70-100); MB/CK RELATIVE INDEX 0.52 (< OR =4); POTASSIUM SERUM 4.7 MEQ/L (3.5-5.1); SODIUM LEVEL 140 MEQ/L (136-145); TOTAL PROTEIN 6.4 GM/DL (6.4-8.2); TROPONIN I 0.04 NG/ML (< 0.10)
[2018-02-07] MEDS: LORazepam 2 MG/ML VIAL (J2060) IV (19:27)
== END 2018-02-08 00:27 | disposition short-term general hospital (02) ==
LOC: M ED 02-08 00:27
DX: M51.06 Intervertebral disc disorders with myelopathy, lumbar region (principal); M48.061 Spinal stenosis, lumbar region without neurogenic claudication; R53.1 Weakness; I45.19 Other right bundle-branch block; I44.4 Left anterior fascicular block; M25.78 Osteophyte, vertebrae; M47.816 Spondylosis without myelopathy or radiculopathy, lumbar region; I50.9 Heart failure, unspecified; E11.9 Type 2 diabetes mellitus without complications; M35.3 Polymyalgia rheumatica; M10.9 Gout, unspecified; N18.9 Chronic kidney disease, unspecified; Z86.73 Personal history of transient ischemic attack (TIA), and cerebral infarction without residual deficits; E66.9 Obesity, unspecified; Z79.82 Long term (current) use of aspirin; Z79.84 Long term (current) use of oral hypoglycemic drugs; Z79.899 Other long term (current) drug therapy; Z88.5 Allergy status to narcotic agent
CPT/HCPCS: J2060

== ENCOUNTER 2018-07-18 16:36 | Inpatient (IN) | payer MEDICARE, MEDICAID ==
[2018-07-18 19:12] LABS: HEMOGLOBIN 11.3 g/dl (13.5-17.5); MEAN CORPUSCULAR HEMOGLOBIN 28.9 pg (27.0-33.0); MEAN CORPUSCULAR HGB CONC 30.5 g/dl (32.0-36.5); MEAN CORPUSCULAR VOLUME 94.6 fl (80.0-96.0); PLATELET COUNT, AUTOMATED 110 10^3/uL (150-450); RED BLOOD COUNT 3.91 10^6/uL (4.30-6.10); RED CELL DISTRIBUTION WIDTH 15.8 % (11.5-14.5); WHITE BLOOD COUNT 8.3 10^3/uL (4.0-10.0)
[2018-07-18 19:38] LABS: ALBUMIN 2.9 GM/DL (3.2-5.2); ALBUMIN/GLOBULIN RATIO 0.88 (1.00-1.93); ALKALINE PHOSPHATASE 185 U/L (45-117); ALT/SGPT 72 U/L (12-78); ANION GAP 9 MEQ/L (8-16); AST/SGOT 56 U/L (7-37); BILIRUBIN,TOTAL 0.6 MG/DL (0.2-1.0); BLOOD UREA NITROGEN 82 MG/DL (7-18); CALCIUM LEVEL 8.9 MG/DL (8.8-10.2); CARBON DIOXIDE LEVEL 38 MEQ/L (21-32); CHLORIDE LEVEL 91 MEQ/L (98-107); CREATININE FOR GFR 3.24 MG/DL (0.70-1.30); GLUCOSE, FASTING 379 MG/DL (70-100); POTASSIUM SERUM 5.1 MEQ/L (3.5-5.1); SODIUM LEVEL 138 MEQ/L (136-145); TOTAL PROTEIN 6.2 GM/DL (6.4-8.2)
[2018-07-18 19:41] LABS: APPEARANCE, URINE CLEAR (CLEAR); BACTERIA, URINE AUTO NEGATIVE (NEGATIVE); BILIRUBIN, URINE AUTO NEGATIVE (NEGATIVE); BLOOD, URINE BLOOD NEGATIVE (NEGATIVE); COLOR, URINE STRAW (YELLOW); GLUCOSE, URINE (UA) AUTO 3+ mg/dL (NEGATIVE); KETONE, URINE AUTO NEGATIVE (NEGATIVE); LEUKOCYTE ESTERASE, URINE AUTO NEGATIVE (NEGATIVE); NITRITE, URINE AUTO NEGATIVE (NEGATIVE); PROTEIN, URINE AUTO NEGATIVE (NEGATIVE); RBC, URINE AUTO 0 /HPF (0-3); SPECIFIC GRAVITY URINE AUTO 1.005 (1.002-1.035); SQUAMOUS EPITHELIAL CELL UR AU 0 /HPF (0-6); UROBILINOGEN, URINE AUTO 0.2 mg/dL (0.0-2.0); WBC, URINE AUTO 0 /HPF (0-3)
[2018-07-18 19:50] LABS: LACTIC ACID SEPSIS PROTOCOL 2.3 MMOL/L (0.4-2.0)
[2018-07-18 20:08] LABS: CREATININE,RANDOM URINE 19.4 MG/DL; SODIUM,RANDOM URINE 94 MEQ/L
[2018-07-18 20:16] LABS: C REACTIVE PROTEIN QUANTITATIV 3.39 MG/DL (0.00-0.30)
[2018-07-18] MEDS: NYSTATIN 100,000 UNITS/GM TOPICAL PWD 15 GM TOP (21:00)
[2018-07-18] MEDS: HEPARIN SOD (PORCINE) 5000 UNITS/ML VIAL SC (21:26)
[2018-07-18] MEDS: LEVEMIR (INSULIN DETEMIR) 1 UNITS/0.01ML SC (21:26)
[2018-07-19] MEDS: HEPARIN SOD (PORCINE) 5000 UNITS/ML VIAL SC (05:47)
[2018-07-19 08:00] LABS: BEDSIDE GLUCOSE 223 MG/DL (83-110)
[2018-07-19 08:11] LABS: HEMATOCRIT 34.9 % (42.0-52.0); HEMOGLOBIN 10.6 g/dl (13.5-17.5); MEAN CORPUSCULAR HEMOGLOBIN 28.5 pg (27.0-33.0); MEAN CORPUSCULAR HGB CONC 30.4 g/dl (32.0-36.5); MEAN CORPUSCULAR VOLUME 93.8 fl (80.0-96.0); PLATELET COUNT, AUTOMATED 110 10^3/uL (150-450); RED BLOOD COUNT 3.72 10^6/uL (4.30-6.10); RED CELL DISTRIBUTION WIDTH 15.9 % (11.5-14.5)
[2018-07-19] MEDS: HumaLOG INSULIN (NovoLOG) PER UNIT SC ×4 (08:34→20:58)
[2018-07-19] MEDS: NYSTATIN 100,000 UNITS/GM TOPICAL PWD 15 GM TOP ×2 (08:35→21:00)
[2018-07-19] MEDS: ACETAMINOPHEN TAB 650MG DOSE (2X325MG) PO (08:36)
[2018-07-19 08:58] LABS: ALBUMIN 2.8 GM/DL (3.2-5.2); ALBUMIN/GLOBULIN RATIO 0.93 (1.00-1.93); ALKALINE PHOSPHATASE 158 U/L (45-117); ALT/SGPT 63 U/L (12-78); ANION GAP 10 MEQ/L (8-16); AST/SGOT 41 U/L (7-37); BILIRUBIN,TOTAL 0.5 MG/DL (0.2-1.0); BLOOD UREA NITROGEN 81 MG/DL (7-18); CALCIUM LEVEL 8.8 MG/DL (8.8-10.2); CARBON DIOXIDE LEVEL 39 MEQ/L (21-32); CHLORIDE LEVEL 93 MEQ/L (98-107); CREATININE FOR GFR 3.08 MG/DL (0.70-1.30); GLOMERULAR FILTRATION RATE 21.2 (>42); GLUCOSE, FASTING 220 MG/DL (70-100); MAGNESIUM LEVEL 2.4 MG/DL (1.8-2.4); POTASSIUM SERUM 3.8 MEQ/L (3.5-5.1); SODIUM LEVEL 142 MEQ/L (136-145); TOTAL PROTEIN 5.8 GM/DL (6.4-8.2)
[2018-07-19 10:55] LABS: CK-MB VALUE MASS < 1.0 NG/ML (<3.6); CPK CREATINE PHOSPHOKINASE 21 U/L (39-308); MB/CK RELATIVE INDEX 4.76 (< OR =4); TROPONIN I 0.04 NG/ML (< 0.10)
[2018-07-19 12:06] LABS: BEDSIDE GLUCOSE 121 MG/DL (83-110)
[2018-07-19] MEDS ORDERED: SLF 3 ML SYR IV (12:30)
[2018-07-19] MEDS: ENOXAPARIN 30 MG/0.3 ML SYR (J1650) SC (14:30)
[2018-07-19] MEDS: SLF 3 ML SYR IV ×2 (14:31→21:01)
[2018-07-19] MEDS ORDERED: NORCO, ANEXSIA 5/325MG TABLET (HYDROcodone/ACETAMINOPHEN) PO ×3 (15:00→15:15)
[2018-07-19] MEDS: NORCO, ANEXSIA 5/325MG TABLET (HYDROcodone/ACETAMINOPHEN) PO ×2 (15:34→20:55)
[2018-07-19 15:38] LABS: CPK CREATINE PHOSPHOKINASE 40 U/L (39-308); MB/CK RELATIVE INDEX 2.75 (< OR =4); TROPONIN I 0.03 NG/ML (< 0.10)
[2018-07-19 16:52] LABS: BEDSIDE GLUCOSE 186 MG/DL (83-110)
[2018-07-19] MEDS: LEVEMIR (INSULIN DETEMIR) 1 UNITS/0.01ML SC (20:52)
[2018-07-19 20:58] LABS: BEDSIDE GLUCOSE 230 MG/DL (83-110)
[2018-07-20] MEDS: NORCO, ANEXSIA 5/325MG TABLET (HYDROcodone/ACETAMINOPHEN) PO ×4 (04:30→23:45)
[2018-07-20 05:52] LABS: HEMATOCRIT 36.8 % (42.0-52.0); HEMOGLOBIN 11.3 g/dl (13.5-17.5); MEAN CORPUSCULAR HEMOGLOBIN 28.7 pg (27.0-33.0); MEAN CORPUSCULAR HGB CONC 30.7 g/dl (32.0-36.5); MEAN CORPUSCULAR VOLUME 93.4 fl (80.0-96.0); PLATELET COUNT, AUTOMATED 127 10^3/uL (150-450); RED BLOOD COUNT 3.94 10^6/uL (4.30-6.10); RED CELL DISTRIBUTION WIDTH 15.9 % (11.5-14.5); WHITE BLOOD COUNT 8.7 10^3/uL (4.0-10.0)
[2018-07-20] MEDS: SLF 3 ML SYR IV ×3 (06:00→21:41)
[2018-07-20 06:16] LABS: ALBUMIN 2.7 GM/DL (3.2-5.2); ALBUMIN/GLOBULIN RATIO 0.73 (1.00-1.93); ALKALINE PHOSPHATASE 157 U/L (45-117); ALT/SGPT 63 U/L (12-78); ANION GAP 8 MEQ/L (8-16); AST/SGOT 52 U/L (7-37); BILIRUBIN,TOTAL 0.7 MG/DL (0.2-1.0); BLOOD UREA NITROGEN 77 MG/DL (7-18); C REACTIVE PROTEIN QUANTITATIV 3.63 MG/DL (0.00-0.30); CALCIUM LEVEL 8.6 MG/DL (8.8-10.2); CARBON DIOXIDE LEVEL 37 MEQ/L (21-32); CHLORIDE LEVEL 96 MEQ/L (98-107); CREATININE FOR GFR 3.05 MG/DL (0.70-1.30); GLOMERULAR FILTRATION RATE 21.5 (>42); GLUCOSE, FASTING 127 MG/DL (70-100); PHOSPHORUS LEVEL 4.3 MG/DL (2.5-4.9); POTASSIUM SERUM 3.7 MEQ/L (3.5-5.1); SODIUM LEVEL 141 MEQ/L (136-145); TOTAL PROTEIN 6.4 GM/DL (6.4-8.2); URIC ACID 7.9 MG/DL (3.5-7.2)
[2018-07-20 06:24] LABS: ERYTHROCYTE SEDIMENTATION RATE 72 mm/hr (0-20)
[2018-07-20] MEDS: HumaLOG INSULIN (NovoLOG) PER UNIT SC ×4 (07:46→21:38)
[2018-07-20] MEDS ORDERED: predniSONE 5 MG TAB PO (09:00)
[2018-07-20] MEDS: NYSTATIN 100,000 UNITS/GM TOPICAL PWD 15 GM TOP ×2 (09:27→21:00)
[2018-07-20] MEDS: TORSEMIDE 100 MG TAB PO ×2 (09:30→16:32)
[2018-07-20] MEDS: ENOXAPARIN 30 MG/0.3 ML SYR (J1650) SC (09:30)
[2018-07-20] MEDS: predniSONE 20 MG TAB PO (09:30)
[2018-07-20 11:59] LABS: BEDSIDE GLUCOSE 170 MG/DL (83-110)
[2018-07-20 13:58] LABS: PTH INTACT 65.8 PG/ML (18.5-88.0)
[2018-07-20 16:26] LABS: BEDSIDE GLUCOSE 283 MG/DL (83-110)
[2018-07-20] MEDS: POTASSIUM CHLORIDE 10 MEQ SR TABLET PO ×2 (16:31→21:40)
[2018-07-20] MEDS: FEBUXOSTAT 40 MG TABLET (ULORIC) PO (16:32)
[2018-07-20 21:28] LABS: BEDSIDE GLUCOSE 262 MG/DL (83-110)
[2018-07-20] MEDS: LEVEMIR (INSULIN DETEMIR) 1 UNITS/0.01ML SC (21:38)
[2018-07-21 04:58] LABS: BEDSIDE GLUCOSE 160 MG/DL (83-110)
[2018-07-21] MEDS: SLF 3 ML SYR IV ×3 (05:04→21:27)
[2018-07-21] MEDS: HumaLOG INSULIN (NovoLOG) PER UNIT SC ×4 (08:07→21:00)
[2018-07-21] MEDS: NYSTATIN 100,000 UNITS/GM TOPICAL PWD 15 GM TOP ×2 (08:07→21:25)
[2018-07-21] MEDS: TORSEMIDE 100 MG TAB PO (08:08)
[2018-07-21] MEDS: FEBUXOSTAT 40 MG TABLET (ULORIC) PO (08:08)
[2018-07-21] MEDS: POTASSIUM CHLORIDE 10 MEQ SR TABLET PO (08:08)
[2018-07-21] MEDS: predniSONE 20 MG TAB PO (08:08)
[2018-07-21] MEDS: ENOXAPARIN 30 MG/0.3 ML SYR (J1650) SC (08:09)
[2018-07-21 08:10] LABS: HEMATOCRIT 36.2 % (42.0-52.0); HEMOGLOBIN 11.1 g/dl (13.5-17.5); MEAN CORPUSCULAR HEMOGLOBIN 28.7 pg (27.0-33.0); MEAN CORPUSCULAR HGB CONC 30.7 g/dl (32.0-36.5); MEAN CORPUSCULAR VOLUME 93.5 fl (80.0-96.0); PLATELET COUNT, AUTOMATED 117 10^3/uL (150-450); RED BLOOD COUNT 3.87 10^6/uL (4.30-6.10); RED CELL DISTRIBUTION WIDTH 15.9 % (11.5-14.5); WHITE BLOOD COUNT 7.7 10^3/uL (4.0-10.0)
[2018-07-21 08:38] LABS: ALBUMIN 2.8 GM/DL (3.2-5.2); ANION GAP 8 MEQ/L (8-16); BLOOD UREA NITROGEN 78 MG/DL (7-18); CALCIUM LEVEL 8.7 MG/DL (8.8-10.2); CARBON DIOXIDE LEVEL 39 MEQ/L (21-32); CHLORIDE LEVEL 95 MEQ/L (98-107); CREATININE FOR GFR 3.24 MG/DL (0.70-1.30); GLUCOSE, FASTING 137 MG/DL (70-100); PHOSPHORUS LEVEL 4.2 MG/DL (2.5-4.9); POTASSIUM SERUM 3.9 MEQ/L (3.5-5.1); SODIUM LEVEL 142 MEQ/L (136-145)
[2018-07-21] MEDS: NORCO, ANEXSIA 5/325MG TABLET (HYDROcodone/ACETAMINOPHEN) PO ×2 (11:00→18:50)
[2018-07-21] MEDS: CEFEPIME HCL 2 GM in D5W MINI-BAG PLUS 50 ML IV (11:32)
[2018-07-21 11:42] LABS: BEDSIDE GLUCOSE 220 MG/DL (83-110)
[2018-07-21] MEDS: AZITHROMYCIN INJ 500 MG, VIAL MATE ADAPTER 1 EACH in D5W 250 ML IV (12:27)
[2018-07-21 17:46] LABS: BEDSIDE GLUCOSE 303 MG/DL (83-110)
[2018-07-21 21:10] LABS: BEDSIDE GLUCOSE 239 MG/DL (83-110)
[2018-07-21] MEDS: LEVEMIR (INSULIN DETEMIR) 1 UNITS/0.01ML SC (21:25)
[2018-07-22] MEDS: NORCO, ANEXSIA 5/325MG TABLET (HYDROcodone/ACETAMINOPHEN) PO ×2 (02:19→13:58)
[2018-07-22] MEDS: SLF 3 ML SYR IV ×3 (05:21→21:15)
[2018-07-22 06:06] LABS: BASO % 0.2 % (0.0-1.0); EOS # 0.1 10^3/uL (0.0-0.50); EOS % 1.2 % (0.0-3.0); HEMATOCRIT 37.5 % (42.0-52.0); HEMOGLOBIN 11.4 g/dl (13.5-17.5); IMMATURE GRANULOCYTE % 1.2 % (0-3.0); LYMPH % 11.7 % (24.0-44.0); MEAN CORPUSCULAR HEMOGLOBIN 28.1 pg (27.0-33.0); MEAN CORPUSCULAR HGB CONC 30.4 g/dl (32.0-36.5); MEAN CORPUSCULAR VOLUME 92.6 fl (80.0-96.0); MONO # 0.7 10^3/uL (0.0-0.8); MONO % 7.9 % (0.0-5.0); NEUTROPHILS # 6.9 10^3/uL (1.8-7.7); NEUTROPHILS % 77.8 % (36.0-66.0); PLATELET COUNT, AUTOMATED 136 10^3/uL (150-450); RED BLOOD COUNT 4.05 10^6/uL (4.30-6.10); RED CELL DISTRIBUTION WIDTH 15.9 % (11.5-14.5); WHITE BLOOD COUNT 8.9 10^3/uL (4.0-10.0)
[2018-07-22 06:29] LABS: ANION GAP 11 MEQ/L (8-16); BLOOD UREA NITROGEN 75 MG/DL (7-18); CARBON DIOXIDE LEVEL 35 MEQ/L (21-32); CHLORIDE LEVEL 97 MEQ/L (98-107); CREATININE FOR GFR 3.24 MG/DL (0.70-1.30); GLUCOSE, FASTING 107 MG/DL (70-100); POTASSIUM SERUM 3.9 MEQ/L (3.5-5.1); SODIUM LEVEL 143 MEQ/L (136-145)
[2018-07-22] MEDS ORDERED: CEFDINIR 300 MG CAP (OMNICEF) PO (09:00)
[2018-07-22] MEDS: NYSTATIN 100,000 UNITS/GM TOPICAL PWD 15 GM TOP ×2 (09:00→21:14)
[2018-07-22] MEDS: FEBUXOSTAT 40 MG TABLET (ULORIC) PO (10:01)
[2018-07-22] MEDS: predniSONE 20 MG TAB PO (10:01)
[2018-07-22] MEDS: ENOXAPARIN 30 MG/0.3 ML SYR (J1650) SC (10:01)
[2018-07-22] MEDS: HumaLOG INSULIN (NovoLOG) PER UNIT SC ×4 (10:02→21:00)
[2018-07-22 11:50] LABS: BEDSIDE GLUCOSE 106 MG/DL (83-110)
[2018-07-22 17:18] LABS: BEDSIDE GLUCOSE 266 MG/DL (83-110)
[2018-07-22] MEDS: LEVEMIR (INSULIN DETEMIR) 1 UNITS/0.01ML SC (21:11)
[2018-07-22 21:45] LABS: BEDSIDE GLUCOSE 174 MG/DL (83-110)
[2018-07-23] MEDS: SLF 3 ML SYR IV ×3 (06:15→21:34)
[2018-07-23 06:43] LABS: HEMATOCRIT 38.3 % (42.0-52.0); HEMOGLOBIN 11.7 g/dl (13.5-17.5); MEAN CORPUSCULAR HEMOGLOBIN 28.5 pg (27.0-33.0); MEAN CORPUSCULAR HGB CONC 30.5 g/dl (32.0-36.5); MEAN CORPUSCULAR VOLUME 93.4 fl (80.0-96.0); PLATELET COUNT, AUTOMATED 135 10^3/uL (150-450); RED CELL DISTRIBUTION WIDTH 15.8 % (11.5-14.5); WHITE BLOOD COUNT 8.1 10^3/uL (4.0-10.0)
[2018-07-23 07:00] LABS: ANION GAP 10 MEQ/L (8-16); BLOOD UREA NITROGEN 69 MG/DL (7-18); CALCIUM LEVEL 9.1 MG/DL (8.8-10.2); CARBON DIOXIDE LEVEL 36 MEQ/L (21-32); CHLORIDE LEVEL 98 MEQ/L (98-107); CREATININE FOR GFR 2.83 MG/DL (0.70-1.30); GLOMERULAR FILTRATION RATE 23.4 (>42); GLUCOSE, FASTING 122 MG/DL (70-100); POTASSIUM SERUM 3.3 MEQ/L (3.5-5.1); SODIUM LEVEL 144 MEQ/L (136-145)
[2018-07-23] MEDS: ENOXAPARIN 30 MG/0.3 ML SYR (J1650) SC (08:53)
[2018-07-23] MEDS: predniSONE 20 MG TAB PO (08:53)
[2018-07-23] MEDS: FEBUXOSTAT 40 MG TABLET (ULORIC) PO (08:53)
[2018-07-23] MEDS: NYSTATIN 100,000 UNITS/GM TOPICAL PWD 15 GM TOP ×2 (08:54→21:34)
[2018-07-23] MEDS: HumaLOG INSULIN (NovoLOG) PER UNIT SC ×4 (08:54→21:00)
[2018-07-23] MEDS: NORCO, ANEXSIA 5/325MG TABLET (HYDROcodone/ACETAMINOPHEN) PO ×2 (12:09→21:33)
[2018-07-23 12:16] LABS: BEDSIDE GLUCOSE 183 MG/DL (83-110)
[2018-07-23] MEDS: POTASSIUM CHLORIDE 10 MEQ SR TABLET PO (12:27)
[2018-07-23] MEDS: TORSEMIDE 20 MG TAB PO ×2 (12:27→18:04)
[2018-07-23 14:32] LABS: HEMATOCRIT 38.8 % (42.0-52.0); HEMOGLOBIN 11.8 g/dl (13.5-17.5); MEAN CORPUSCULAR HEMOGLOBIN 28.5 pg (27.0-33.0); MEAN CORPUSCULAR HGB CONC 30.4 g/dl (32.0-36.5); MEAN CORPUSCULAR VOLUME 93.7 fl (80.0-96.0); PLATELET COUNT, AUTOMATED 128 10^3/uL (150-450); RED BLOOD COUNT 4.14 10^6/uL (4.30-6.10); RED CELL DISTRIBUTION WIDTH 15.9 % (11.5-14.5); WHITE BLOOD COUNT 7.8 10^3/uL (4.0-10.0)
[2018-07-23] MEDS: GASTROGRAFIN SOLUTION 30ML PO ×2 (15:02→15:20)
[2018-07-23 15:15] LABS: ALBUMIN 2.9 GM/DL (3.2-5.2); ALBUMIN/GLOBULIN RATIO 0.88 (1.00-1.93); ALKALINE PHOSPHATASE 140 U/L (45-117); ALT/SGPT 62 U/L (12-78); ANION GAP 7 MEQ/L (8-16); AST/SGOT 53 U/L (7-37); BILIRUBIN,TOTAL 0.8 MG/DL (0.2-1.0); BLOOD UREA NITROGEN 67 MG/DL (7-18); CALCIUM LEVEL 8.8 MG/DL (8.8-10.2); CARBON DIOXIDE LEVEL 38 MEQ/L (21-32); CHLORIDE LEVEL 98 MEQ/L (98-107); CREATININE FOR GFR 2.81 MG/DL (0.70-1.30); GLOMERULAR FILTRATION RATE 23.6 (>42); GLUCOSE, FASTING 225 MG/DL (70-100); LIPASE 130 U/L (73-393); POTASSIUM SERUM 4.6 MEQ/L (3.5-5.1); SODIUM LEVEL 143 MEQ/L (136-145); TOTAL PROTEIN 6.2 GM/DL (6.4-8.2)
[2018-07-23 17:23] LABS: BEDSIDE GLUCOSE 267 MG/DL (83-110)
[2018-07-23 20:36] LABS: BEDSIDE GLUCOSE 193 MG/DL (83-110)
[2018-07-23] MEDS: LEVEMIR (INSULIN DETEMIR) 1 UNITS/0.01ML SC (21:34)
[2018-07-24] MEDS: SLF 3 ML SYR IV ×3 (05:19→21:32)
[2018-07-24 06:16] LABS: HEMATOCRIT 38.2 % (42.0-52.0); HEMOGLOBIN 11.9 g/dl (13.5-17.5); MEAN CORPUSCULAR HEMOGLOBIN 28.6 pg (27.0-33.0); MEAN CORPUSCULAR HGB CONC 31.2 g/dl (32.0-36.5); MEAN CORPUSCULAR VOLUME 91.8 fl (80.0-96.0); PLATELET COUNT, AUTOMATED 144 10^3/uL (150-450); RED BLOOD COUNT 4.16 10^6/uL (4.30-6.10); RED CELL DISTRIBUTION WIDTH 15.9 % (11.5-14.5)
[2018-07-24 06:47] LABS: ANION GAP 5 MEQ/L (8-16); BLOOD UREA NITROGEN 62 MG/DL (7-18); CARBON DIOXIDE LEVEL 39 MEQ/L (21-32); CHLORIDE LEVEL 99 MEQ/L (98-107); CREATININE FOR GFR 2.87 MG/DL (0.70-1.30); GLUCOSE, FASTING 75 MG/DL (70-100); POTASSIUM SERUM 3.4 MEQ/L (3.5-5.1); SODIUM LEVEL 143 MEQ/L (136-145)
[2018-07-24] MEDS: HumaLOG INSULIN (NovoLOG) PER UNIT SC ×4 (07:30→21:00)
[2018-07-24] MEDS: ENOXAPARIN 30 MG/0.3 ML SYR (J1650) SC (08:39)
[2018-07-24] MEDS: FEBUXOSTAT 40 MG TABLET (ULORIC) PO (08:40)
[2018-07-24] MEDS: TORSEMIDE 20 MG TAB PO ×2 (08:40→16:17)
[2018-07-24] MEDS: predniSONE 20 MG TAB PO (08:40)
[2018-07-24] MEDS: NYSTATIN 100,000 UNITS/GM TOPICAL PWD 15 GM TOP ×2 (08:40→21:32)
[2018-07-24] MEDS: POTASSIUM CHLORIDE 10 MEQ SR TABLET PO (09:17)
[2018-07-24 11:48] LABS: BEDSIDE GLUCOSE 107 MG/DL (83-110)
[2018-07-24] MEDS: PANTOPRAZOLE 40MG TAB (PROTONIX) PO (15:16)
[2018-07-24 17:48] LABS: BEDSIDE GLUCOSE 222 MG/DL (83-110)
[2018-07-24] MEDS: NORCO, ANEXSIA 5/325MG TABLET (HYDROcodone/ACETAMINOPHEN) PO (17:57)
[2018-07-24] MEDS: LEVEMIR (INSULIN DETEMIR) 1 UNITS/0.01ML SC (21:32)
[2018-07-24 21:52] LABS: BEDSIDE GLUCOSE 202 MG/DL (83-110)
[2018-07-25] MEDS: NORCO, ANEXSIA 5/325MG TABLET (HYDROcodone/ACETAMINOPHEN) PO ×3 (00:24→19:32)
[2018-07-25] MEDS: SLF 3 ML SYR IV ×4 (05:34→22:00)
[2018-07-25 06:59] LABS: ANION GAP 8 MEQ/L (8-16); BLOOD UREA NITROGEN 64 MG/DL (7-18); CARBON DIOXIDE LEVEL 35 MEQ/L (21-32); CHLORIDE LEVEL 99 MEQ/L (98-107); CREATININE FOR GFR 3.07 MG/DL (0.70-1.30); GLOMERULAR FILTRATION RATE 21.3 (>42); GLUCOSE, FASTING 89 MG/DL (70-100); POTASSIUM SERUM 3.5 MEQ/L (3.5-5.1); SODIUM LEVEL 142 MEQ/L (136-145)
[2018-07-25] MEDS: HumaLOG INSULIN (NovoLOG) PER UNIT SC ×4 (07:18→20:54)
[2018-07-25] MEDS: NYSTATIN 100,000 UNITS/GM TOPICAL PWD 15 GM TOP ×2 (09:00→20:59)
[2018-07-25] MEDS: predniSONE 20 MG TAB PO (09:07)
[2018-07-25] MEDS: PANTOPRAZOLE 40MG TAB (PROTONIX) PO (09:07)
[2018-07-25] MEDS: TORSEMIDE 20 MG TAB PO ×2 (09:07→17:31)
[2018-07-25] MEDS: ENOXAPARIN 30 MG/0.3 ML SYR (J1650) SC (09:07)
[2018-07-25] MEDS: FEBUXOSTAT 40 MG TABLET (ULORIC) PO (09:07)
[2018-07-25] MEDS: POTASSIUM CHLORIDE 10 MEQ SR TABLET PO (09:07)
[2018-07-25 11:47] LABS: BEDSIDE GLUCOSE 123 MG/DL (83-110)
[2018-07-25 17:06] LABS: BEDSIDE GLUCOSE 233 MG/DL (83-110)
[2018-07-25 20:08] LABS: BEDSIDE GLUCOSE 206 MG/DL (83-110)
[2018-07-25] MEDS: LEVEMIR (INSULIN DETEMIR) 1 UNITS/0.01ML SC (20:59)
[2018-07-26] MEDS: SLF 3 ML SYR IV (05:20)
[2018-07-26 06:27] LABS: ANION GAP 12 MEQ/L (8-16); BLOOD UREA NITROGEN 65 MG/DL (7-18); CALCIUM LEVEL 8.9 MG/DL (8.8-10.2); CARBON DIOXIDE LEVEL 34 MEQ/L (21-32); CHLORIDE LEVEL 98 MEQ/L (98-107); CREATININE FOR GFR 3.08 MG/DL (0.70-1.30); GLOMERULAR FILTRATION RATE 21.2 (>42); GLUCOSE, FASTING 108 MG/DL (70-100); POTASSIUM SERUM 3.8 MEQ/L (3.5-5.1); SODIUM LEVEL 144 MEQ/L (136-145)
[2018-07-26] MEDS: HumaLOG INSULIN (NovoLOG) PER UNIT SC ×2 (09:09→12:53)
[2018-07-26] MEDS: PANTOPRAZOLE 40MG TAB (PROTONIX) PO (09:23)
[2018-07-26] MEDS: predniSONE 20 MG TAB PO (09:23)
[2018-07-26] MEDS: TORSEMIDE 20 MG TAB PO (09:23)
[2018-07-26] MEDS: FEBUXOSTAT 40 MG TABLET (ULORIC) PO (09:23)
[2018-07-26] MEDS: POTASSIUM CHLORIDE 10 MEQ SR TABLET PO (09:23)
[2018-07-26] MEDS: ENOXAPARIN 30 MG/0.3 ML SYR (J1650) SC (09:24)
[2018-07-26] MEDS: NYSTATIN 100,000 UNITS/GM TOPICAL PWD 15 GM TOP (09:27)
[2018-07-26] MEDS: NORCO, ANEXSIA 5/325MG TABLET (HYDROcodone/ACETAMINOPHEN) PO (11:23)
[2018-07-26 12:54] LABS: BEDSIDE GLUCOSE 158 MG/DL (83-110)
== END 2018-07-26 13:20 | DRG 682 ==
LOC: M MSPAV 07-21 23:59 → M PCU 16:36
DX: N17.9 Acute kidney failure, unspecified (principal); I50.33 Acute on chronic diastolic (congestive) heart failure; E87.3 Alkalosis; Z68.41 Body mass index [BMI] 40.0-44.9, adult; E66.01 Morbid (severe) obesity due to excess calories; I50.810 Right heart failure, unspecified; M25.511 Pain in right shoulder; T50.1X5A Adverse effect of loop [high-ceiling] diuretics, initial encounter; M25.512 Pain in left shoulder; E11.22 Type 2 diabetes mellitus with diabetic chronic kidney disease; E87.6 Hypokalemia; R91.8 Other nonspecific abnormal finding of lung field; N25.81 Secondary hyperparathyroidism of renal origin; D64.9 Anemia, unspecified; M10.9 Gout, unspecified; I25.10 Atherosclerotic heart disease of native coronary artery without angina pectoris; E11.65 Type 2 diabetes mellitus with hyperglycemia; N18.4 Chronic kidney disease, stage 4 (severe); F32.9 Major depressive disorder, single episode, unspecified; K21.9 Gastro-esophageal reflux disease without esophagitis; M35.3 Polymyalgia rheumatica; Z87.891 Personal history of nicotine dependence; Z86.73 Personal history of transient ischemic attack (TIA), and cerebral infarction without residual deficits; Z79.4 Long term (current) use of insulin; Z79.82 Long term (current) use of aspirin; Z79.52 Long term (current) use of systemic steroids; Z79.899 Other long term (current) drug therapy; Z88.5 Allergy status to narcotic agent; Z95.9 Presence of cardiac and vascular implant and graft, unspecified; L89.319 Pressure ulcer of right buttock, unspecified stage